=== PATIENT | female | born 1935 | race Caucasian/White ===

== ENCOUNTER → 2016-09-20 | Outpatient (CLI) | payer BC ==
[2016-09-20 14:56] LABS: ALT/SGPT 20 U/L (12-78); AST/SGOT 14 U/L (15-37); BLOOD UREA NITROGEN 18 mg/dl (7-18); BUN/CREATININE RATIO 18.5 (10-20); CALCIUM 9.1 mg/dl (8.5-10.1); CARBON DIOXIDE 26 mmol/L (21-32); CHLORIDE 105 mmol/L (98-107); CREATININE 0.99 mg/dl (0.60-1.20); GLUCOSE 92 mg/dl (70-99); POTASSIUM 3.9 mmol/L (3.5-5.1); SODIUM 141 mmol/L (136-145)
[2016-09-20 14:58] LABS: ALB/GLOB RATIO 0.9 (0.9-2); ALKALINE PHOSPHATASE 93 U/L (45-117)
[2016-09-21 06:56] LABS: ESTIMATED AVERAGE GLUCOSE 126 mg/dl; HA1C FLAG Normal (Normal)
== END | disposition home or self-care (01) ==
LOC: C.LABBC 09:35
PROVIDERS: ATTEND Physician Assistant Medical
DX: I10 Essential (primary) hypertension (principal); R73.03 Prediabetes; M85.80 Other specified disorders of bone density and structure, unspecified site

== ENCOUNTER → 2016-09-25 | Outpatient (CLI) | payer BC ==
--- NOTE | 2016-09-26 13:06 | MAMMOGRAPHY REPORT ---
THIS REPORT HAS BEEN AMENDED. BILATERAL DIGITAL SCREENING MAMMOGRAM WITH CAD: 09/25/2016 CLINICAL HISTORY: Routine screening. Patient has no complaints. TECHNIQUE: Bilateral CC and MLO views were obtained. Current study was also evaluated with a Compute r Aided Detection (CAD) system. COMPARISON: No prior exams were available for comparison. BREAST COMPOSITION: The tissue of both breasts is almost entirely fatty. FINDINGS: There are scattered benign rim calcifications bilaterally. No suspicious mass, architectur al distortion or cluster of suspicious microcalcifications is seen. IMPRESSION: ACR BI-RADS CATEGORY 1: NEGATIVE There is no mammographic evidence of malignancy. Prior outside mammograms are currently being reques prashanth and if obtained they will be reviewed, compared to the current exam to assess for any more subtle changes, and an addendum will be made to this report. Otherwise, a 1 year screening mammogram is re commended. The patient will receive written notification of the results. Approximately 10% of breast cancers are not detected with mammography. A negative mammographic report should not delay biopsy if a clinically suggestive mass is present. Smitha Pennington M.D. ay/:09/26/2016 09:58:26 Hospital Carrier: Angelina SMITH)([place]), [facility] letter sent: Normal 1/2 BI-RADS Code: ACR BI-RADS Category 1: Negative AMENDMENT: 09/29/2016 Smitha Pennington M.D. Prior outside mammograms from [facility] in [place] dated 06/15/2011, 08/31/2012, 12/06/2013 became available for review. There is a vague 3 cm focal asymmetry in the 12:00 anterior/ retroareolar right breast that is increasingly conspicuous compared to the prior outside mammograms. Although this could represent bruising from the patient's reported recent trauma, definitive evaluat ion with spot compression tomosynthesis views and targeted ultrasound are recommended. Amended BI-RADS: ACR BI-RADS Category 0: Incomplete Evaluation: Need Additional Imaging Evaluation letter sent: [facility] 0
== END | disposition home or self-care (01) ==
LOC: C.MAMM 14:54
PROVIDERS: ATTEND Obstetrics & Gynecology
DX: Z12.31 Encounter for screening mammogram for malignant neoplasm of breast (principal)

== ENCOUNTER → 2016-10-06 | Outpatient (CLI) | payer BC ==
--- NOTE | 2016-10-09 07:44 | MAMMOGRAPHY REPORT ---
UNILATERAL RIGHT DIGITAL DIAGNOSTIC MAMMOGRAM TOMOSYNTHESIS AND TARGETED RIGHT ULTRASOUND: 10/06/2016 CLINICAL HISTORY: Callback from screening mammogram for right breast asymmetry. The patient reports she had a recent injury to the right breast a few weeks ago in which a shower door hit her breast. S he had a large area of bruising on the skin of the right breast which is mostly resolved. TECHNIQUE: Breast tomosynthesis in addition to standard 2D mammography was performed. Spot compress ion right CC and MLO 2-D and tomosynthesis images were obtained. COMPARISON: Comparison is made to exams dated: 09/25/2016 mammogram - [facility], mammogram, 08/31/2012 mammogram, and 06/15/2011 mammogram - [facility]. BREAST COMPOSITION: The tissue of the right breast is almost entirely fatty. FINDINGS: Spot compression views demonstrate an ill-defined mottled focal asymmetry in the right [facility] tral/12:00 breast anteriorly. On the tomosynthesis images there are small circumscribed round fat de nsity masses seen within the asymmetry, consistent with oil cysts from fat necrosis. Targeted ultrasound was performed of the area of the asymmetry in the right breast. In the right faiza ast at 1:00, extending from the periareolar region to approximately 9 cm from the nipple, there are n umerous round/oval circumscribed anechoic masses consistent with oil cysts, as well as surrounding il l-defined hyperechoic tissue noted throughout the region. These findings correspond with the mammogr aphic asymmetry and have mammographic and sonographic features of fat necrosis. The findings are cheyanne ign and consistent with fat necrosis related to a recent injury. IMPRESSION: ACR BI-RADS CATEGORY 2: BENIGN, TARGETED ULTRASOUND ACR BI-RADS CATEGORY 2: BENIGN The right breast asymmetry is benign and consistent with fat necrosis related to a recent right breas t injury. There is no mammographic or targeted sonographic evidence of malignancy. A 1 year screenin g mammogram is recommended. The patient has been verbally notified of the results. Approximately 10% of breast cancers are not detected with mammography. A negative mammographic report should not delay biopsy if a clinically suggestive mass is present. Danay Toure M.D. ah/:10/06/2016 13:41:17 Client Portfolio Manager: Barbie YAN(R)(M), [facility] letter sent: Normal 1/2 BI-RADS Code: ACR BI-RADS Category 2: Benign Ultrasound BI-RADS: ACR BI-RADS Category 2: Benign
== END | disposition home or self-care (01) ==
LOC: C.MAMM 13:04
PROVIDERS: ATTEND Obstetrics & Gynecology
DX: N64.9 Disorder of breast, unspecified (principal)

== ENCOUNTER → 2016-12-02 | Outpatient (CLI) | payer BC ==
--- NOTE | 2016-12-02 09:32 | DIAGNOSTIC IMAGING REPORT ---
L ANKLE MIN 3 VIEWS ROUTINE, L KNEE 3 VIEWS CLINICAL HISTORY: PAIN AND SWELLING OF ANKLE and left knee. COMPARISON STUDY: None. FINDINGS: No fracture or dislocation. Faint chondrocalcinosis within the left knee. No significant knee effusion. Chronic calcifications at the distal insertion of the Achilles tendon. Mild soft tissue swelling within the left ankle. IMPRESSION: Mild soft tissue swelling within the left ankle. No fractures within the left ankle or left knee. Electronically signed by: Julio Cesar Shukla M.D. 12/02/2016 9:30 AM Dictated Date/Time: 12/02/2016 9:27 AM
== END | disposition home or self-care (01) ==
LOC: C.RADBC 08:46
PROVIDERS: ATTEND Internal Medicine
DX: M25.572 Pain in left ankle and joints of left foot (principal); M25.472 Effusion, left ankle; M25.562 Pain in left knee

== ENCOUNTER → 2017-04-03 | Outpatient (CLI) | payer BC ==
[2017-04-03 15:29] LABS: ALT/SGPT 23 U/L (12-78); AST/SGOT 14 U/L (15-37); BLOOD UREA NITROGEN 24 mg/dl (7-18); CALCIUM 9.2 mg/dl (8.5-10.1); CARBON DIOXIDE 26 mmol/L (21-32); CREATININE 1.08 mg/dl (0.60-1.20); GLUCOSE 101 mg/dl (70-99); POTASSIUM 3.8 mmol/L (3.5-5.1); SODIUM 138 mmol/L (136-145)
[2017-04-03 15:31] LABS: CHOLESTEROL 173 mg/dl (0-200); LDL CHOLESTEROL CALCULATED 84 mg/dl
[2017-04-04 06:45] LABS: HEMOGLOBIN A1C 5.9 % (4.5-5.6)
== END | disposition home or self-care (01) ==
LOC: C.LABBC 09:18
PROVIDERS: ATTEND Internal Medicine
DX: R73.03 Prediabetes (principal); E78.5 Hyperlipidemia, unspecified; M85.80 Other specified disorders of bone density and structure, unspecified site

== ENCOUNTER 2021-10-16 11:24 | Inpatient (IN) ==
[2021-10-16] MEDS ORDERED: dilTIAZem HCl 5 MG/ML 5 ML VIAL IV ONE (11:32)
[2021-10-16] MEDS ORDERED: dilTIAZem HCl 5 MG/ML 5 ML VIAL IV STA ×2 (11:34→13:16)
[2021-10-16] MEDS ORDERED: STAT IV Infusion **Titration per Protocol STA ×2 (11:34→15:43)
[2021-10-16] MEDS ORDERED: SODIUM CHLORIDE 0.9% 1000ML 1,000 ML IV ONE (11:36)
[2021-10-16 11:43] LABS: Basophils # (auto) 0.02 K/uL (0-0.2); Basophils % (auto) 0.1 %; Hematocrit (blood only) 32.9 % (34.1-44.9); Hemoglobin 10.9 g/dl (12.0-16.0); Immature Granulocytes # (auto) 0.09 K/uL (0.00-0.02); Immature Granulocytes % (auto) 0.6 %; Lymphocytes # (auto) 1.36 K/uL (1.2-3.4); Lymphocytes % (auto) 9.1 %; Mean Corpuscular Hemoglobin 31.7 pg (25.0-34.0); Mean Corpuscular Hgb Conc 33.1 g/dL (32.0-36.0); Mean Corpuscular Volume 95.6 fL (80.0-100.0); Mean Platelet Volume 9.7 fL (9.4-12.3); Monocytes # (auto) 1.31 K/uL (0.24-0.82); Monocytes % (auto) 8.8 %; Neutrophils # (auto) 12.09 K/uL (1.4-6.5); Neutrophils % (auto) 81.4 %; Platelet Count 281 K/uL (130-400); RDW Coefficient of Variation 14.4 % (11.5-14.5); RDW Standard Deviation 50.4 fL (36.4-46.3); Red Blood Count 3.44 M/uL (3.93-5.22); White Blood Count 14.87 K/ul (4.8-10.8)
[2021-10-16] MEDS ORDERED: dilTIAZem HCL 125 MG in DEXTROSE 5% 100 ML IV SCH (11:45)
--- NOTE | 2021-10-16 11:57 | Emergency Department Note ---
Impression & Plan Atrial fibrillation with RVR, Increased anion gap metabolic acidosis, Elevated troponin, New onset atrial fibrillation, Acute on chronic renal insufficiency, SIRS (systemic inflammatory response syndrome) ED Provider Note NAME: HOANG BENJAMIN AGE: 86 SEX: F ARRIVES VIA: Ambulance INFORMANT: Patient, EMS ED PROVIDER(S): Avelino Anderson MD CHIEF COMPLAINT: weak, n/v/d, afib rvr PLAN: Disposition: Admit MEDICAL DECISION MAKING: The patient is a pleasant 86-year-old woman with a past medical history of hypertension who presents to the emergency department via EMS for worsening nausea, vomiting, diarrhea over the past several days with associated lightheadedness and weakness as well as mild cough and congestion found to be in A. fib in the 200s upon EMS arrival. Blood pressure was as low as 80s/40s. Her O2 saturation was in the low 80s on room air improving to low mid 90s on nasal cannula. She reports she has had several rapid negative COVID test at her assisted living facility but had a send out performed yesterday that will not be back until tomorrow. She reports there has been individuals with COVID-19. She is vaccinated for COVID-19 including her booster. She denies feeling her heart racing despite her RVR in the 200s. She had been given 1 L of normal saline by EMS without improvement in her rate. She had been given adenosine and did slow down to the 80s temporarily but then resumed in RVR. She subsequent was given 10 mg of IV of diltiazem with some improvement to the 170s-180s, upon discussion with this provider on medical command. On arrival the patient is fatigued appearing but in no distress, afebrile with heart rate in the 180s-200s and blood pressure 100-130s/80s. She was given additional 500 normal saline bolus and 15 mg of IV diltiazem. Her heart rate then gradually improved to the 130s-140s and RVR and then abruptly cardioverted at 1142. Initial EKG demonstrated atrial fibrillation with RVR with nonspecific ST and T wave abnormality without overt ST elevation. Repeat EKG with sinus rhythm with PACs without overt ST elevation or depression. Chest x-ray with evidence of mild vascular congestion in the setting of the patient's atrial fibrillation with RVR in the 200s for unclear duration (given the patient did not feel her heart racing). WBC 14.8K with neutrophil predominance with mild left shift. H/H 10.9/32.9 down from 11.1/39.3 in June without more recent values for comparison. Platelets 28K1 down from 455K in June. Chemistry does demonstrate anion gap metabolic acidosis with anion gap of 18 and bicarbonate of 15. Creatinine 2.8 newly elevated consistent with acute renal insufficiency. BUN/creatinine> 20 suggestive of prerenal etiology. Initial lactic acid 2.6, improved to 1.9 following IV fluid hydration. LFTs appear newly elevated with AST and ALT 112 and 122, respectively. Total bilirubin 0.6, within normal limits. Alk phos within normal limits. High-sensitivity troponin 100, nonspecific and likely related to the patient's prolonged RVR. Lipase is not elevated. Procalcitonin is 1.3. TSH within normal limits. Patient's respiratory viral panel/bio fire was negative including negative COVID-[address] of the abdomen pelvis was performed and demonstrates nonspecific gallbladder wall thickening with pericholecystic fluid however the patient has no tenderness in this area. Moreover her bilirubin is not elevated and no gallstones were seen by CT and thus cholecystitis considered to be less likely. Note is made of nonspecific bilateral perinephric inflammation with bladder wall thickening and perivesicular stranding. UA is pending. Lung bases demonstrate bibasilar consolidation which may be due to atelectasis however given the patient's report of respiratory symptoms pneumonia is considered and so treatment was initiated for CAP at this time with ceftriaxone and doxycycline. Additionally, given the patient's newly elevated LFTs and rela tive decrease in platelets from prior doxycycline may also cover Anaplasma if present. Smear and DNA testing is pending. Unfortunately, the patient did have a recurrence of her atrial fibrillation with RVR to the 200s. She was given a second dose of 15 mg of IV diltiazem with improved rate control to the 120-130s and drip was initiated. Patient and her son at the bedside agree with plan for admission. Case was discussed with Dr. Harvey, [facility] hospitalist, who will evaluate the patient for admission. We agreed to initiate heparin given paroxysmal atrial fibrillation and [id number] 4. Triage Nursing notes reviewed and agree them. Prior medical records reviewed Vital Signs: reviewed and remarkable for tachycardia, hypotension, hypoxia. Differential diagnosis: Gastroenteritis, food borne illness, infections, appendicitis, diverticulitis, inflammatory bowel disease, obstruction, GI bleed, biliary pathology, volvulus, as well as other pathologies. ER treatment provided: See below. Diagnostics interpreted by me: ECG 1130: Atrial fibrillation w/RVR, 191 bpm, no ectopy, nonspecific ST and T wave abnormality, no overt ST elevation or depression, QTC 342, QRS 58. ECG 1147: Sinus rhythm with PACs, 97 bpm, no overt ST elevation or depression, QTC 474, QRS 62. Cardiac Monitoring: An order for continuous cardiac monitoring was placed and demonstrated atrial fibrillation with RVR 180-200s cardioverting to Sinus rhythm with PACs, 97 bpm at 1142. Laboratory studies: See below Imaging studies: See below Consultation(s): Case was discussed with Dr. Harvey, [facility] hospitalist, who will evaluate the patient for admission. HPI: The patient is a pleasant 86-year-old woman with a past medical history of hypertension who presents to the emergency department via EMS for worsening naus ea, vomiting, diarrhea over the past several days with associated lightheadedness and weakness as well as mild cough and congestion found to be in A. fib in the 200s upon EMS arrival. Blood pressure was as low as 80s/40s. Her O2 saturation was in the low 80s on room air improving to low mid 90s on nasal cannula. She reports she has had several rapid negative COVID test at her assisted living facility but had a send out performed yesterday that will not be back until tomorrow. She reports there has been individuals with COVID-19. She is vaccinated for COVID-19 including her booster. She denies feeling her heart racing despite her RVR in the 200s. She had been given 1 L of normal saline by EMS without improvement in her rate. She had been given adenosine and did slow down to the 80s temporarily but then resumed in RVR. She subsequent was given 10 mg of IV of diltiazem with some improvement to the 170s-180s, upon discussion with this provider on medical command. ROS: See above HPI for pertinent positives & negatives. A total of 10 systems reviewed and were otherwise negative. VITALS:See Below PHYSICAL EXAMINATION: GENERAL: Awake, alert, fatigued-appearing, in no distress HENT: Normocephalic, atraumatic. Oropharynx with dry mucous membranes and otherwise unremarkable. EYES: Normal conjunctiva. Sclera non-icteric. NECK: Supple. No nuchal rigidity. FROM. No JVD. RESPIRATORY: Clear to auscultation. CARDIAC: Tachycardic rate, irregular rhythm. Extremities warm and well perfused. Pulses equal. ABDOMEN: Soft, non-distended. No tenderness to palpation. No rebound or guarding. No masses. RECTAL: Deferred. MUSCULOSKELETAL: Chest examination reveals no tenderness. The back is symmetrical on inspection without obvious abnormality. There is no CVA tenderness to palpation. No joint edema. LOWER EXTREMITIES: Calves are equal size bilaterally and non-tender. No edema. No discoloration. NEURO: Normal sensorium. No sensory or motor deficits noted. SKIN: No rash or jaundice noted. ED COURSE: Critical Care: I have personally spent greater than 95 minutes of critical care time in the direct management of this patient. This includes bedside care, interpretation of diagnostic studies, and testing, discussion with consultants, patient, and family members, and other required patient management activities. This 95 minutes is in excess of all separately billable procedures. Avelino Anderson MD Past Med/Surg History Medical History Diverticulosis Dyslipidemia Esophageal reflux History of cardiac murmur Hx of migraines OCCULAR MIGRAINES Hypertension Osteopenia Prediabetes SNHL (sensorineural hearing loss) Spinal stenosis, lumbar Surgical History H/O oophorectomy H/O sinus surgery H/O tooth extraction History of anesthesia reaction HAS WOKEN UP IN MIDDLE OF COLONOSCOPIES History of cataract surgery LEFT History of colonoscopy History of esophagogastroduodenoscopy (EGD) History of hysterectomy History of tonsillectomy and adenoidectomy Family History Brother Colon cancer Cancer of unknown origin Sister Pancreatic cancer Pancreatic carcinoma Mother Diabetes Cardiac disorder Myocardial infarction Hypertension Father Hypertension Stroke Other No family history of adverse response to anesthesia Denies family history of Ovarian cancer Prostate cancer Breast cancer Social History Smoking Status: Never smoker Second Hand Exposure: No; Do You Dip or Chew Tobacco: No; Tobacco Cessation Education Requested by Patient: No Hx Alcohol Use: No Hx Substance Use: No Preferred Language: Kinyarwanda Communication Ability: Effective Visual Impairment: No Limitations Hearing Ability: Normal National Accounts Sales Required: No Beliefs That Will Affect Care: None marital status: / Current Living Situation: Alone Current Living Situation Comment: [facility] current occupational status: retired Other Information That Helps Us Care for You: No Feels Safe at Home: Yes Safety Concerns: Feels Safe At This Time Childhood Exposure to Second-Hand Smoke: No Dental Care, Regularly: Yes Physical Activity Frequency: 3-4 Times per Week Seatbelt Use: always Sunscreen Use: No Assistive Devices: Cane and Glasses Allergies Allergies Allergy/AdvReac Type Severity Reaction Status Date / Time No Known Allergies Allergy Verified 10/16/21 15:36 Home Meds Home Medications Medication Instructions Recorded Confirmed cholecalciferol (vitamin D3) 50 2,000 units PO QAM 10/13/18 10/16/21 mcg (2,000 unit) capsule omeprazole magnesium 20 mg 20 mg PO Q OTHER DAY 07/29/21 10/16/21 tablet,delayed release calcium carbonate 500 mg calcium 500 mg PO DAILY 10/16/21 10/16/21 (1,250 mg) tablet estradiol 0.025 mg/24 hr weekly 1 patch transdermal WK 10/16/21 10/16/21 transdermal patch (Climara) omega-3 fatty acids 1,000 mg 1,000 mg PO DAILY 10/16/21 10/16/21 capsule Previous Rx's Medication Instructions Recorded hydrochlorothiazide 12.5 mg capsule 12.5 mg PO DAILY #90 caps 01/10/21 lisinopril 5 mg tablet 5 mg PO DAILY #90 tabs 01/10/21 simvastatin 20 mg tablet 20 mg PO DAILY #90 tabs 03/16/21 Results & Data (ED) Vital Signs Vital Signs - 24 hr 10/16/21 11:15 10/16/21 11:45 10/16/21 11:45 Temperature 37 C Temperature Source Oral Pulse Rate 204 H Pulse Rate [Apical] Pulse Rate from SpO2 Sensor Pulse Rhythm Irregular Pulse Rhythm [Apical] Pulse Strength [Apical] Respiratory Rate 20 Respiratory Effort / Characteristics Non-Labored Spontaneous Respiratory Depth Normal Respiratory Pattern Regular Blood Pressure 107/83 Blood Pressure [Right Arm] Blood Pressure Mean 91 Blood Pressure Mean [Right Arm] Blood Pressure Position Semi-fowlers Blood Pressure Position [Right Arm] Pulse Oximetry 93 96 96 Oxygen Delivery Method Room Air Room Air Room Air Oxygen Flow Rate 0 Sepsis Recent Fever Within 48 Hours No Sepsis New/Unexplained Change in Mental Status No Sepsis Action Taken by Nursing No Action Required 10/16/21 11:58 10/16/21 11:31 10/16/21 12:00 Temperature Temperature Source Pulse Rate 100 H 211 H 96 H Pulse Rate [Apical] Pulse Rate from SpO2 Sensor Pulse Rhythm Pulse Rhythm [Apical] Pulse Strength [Apical] Respiratory Rate 25 H 24 26 H Respiratory Effort / Characteristics Respiratory Depth Respiratory Pattern Blood Pressure 107/83 107/83 120/104 H Blood Pressure [Right Arm] Blood Pressure Mean 91 91 109 Blood Pressure Mean [Right Arm] Blood Pressure Position Blood Pressure Position [Right Arm] Pulse Oximetry 94 93 95 Oxygen Delivery Method Room Air Room Air Oxygen Flow Rate Sepsis Recent Fever Within 48 Hours Sepsis New/Unexplained Change in Mental Status Sepsis Action Taken by Nursing 10/16/21 13:25 10/16/21 13:33 10/16/21 13:45 Temperature Temperature Source Pulse Rate 128 H Pulse Rate [Apical] 214 H 114 H Pulse Rate from SpO2 Sensor Pulse Rhythm Pulse Rhythm [Apical] Irregular Irregular Pulse Strength [Apical] Normal Normal Respiratory Rate 18 16 32 H Respiratory Effort / Characteristics Spontaneous Non-Labored Spontaneous Respiratory Depth Normal Normal Respiratory Pattern Regular Regular Blood Pressure 101/77 Blood Pressure [Right Arm] 80/62 L 110/70 Blood Pressure Mean 85 Blood Pressure Mean [Right Arm] 68 83 Blood Pressure Position Blood Pressure Position [Right Arm] Semi-fowlers Semi-fowlers Pulse Oximetry 88 L 93 97 Oxygen Delivery Method Room Air Nasal Cannula Oxygen Flow Rate 2 Sepsis Recent Fever Within 48 Hours Sepsis New/Unexplained Change in Mental Status Sepsis Action Taken by Nursing 10/16/21 14:01 10/16/21 14:15 10/16/21 14:17 Temperature Temperature Source Pulse Rate 122 H 119 H Pulse Rate [Apical] Pulse Rate from SpO2 Sensor 106 H Pulse Rhythm Pulse Rhythm [Apical] Pulse Strength [Apical] Respiratory Rate 24 29 H Respiratory Effort / Characteristics Respiratory Depth Respiratory Pattern Blood Pressure 107/74 111/76 Blood Pressure [Right Arm] Blood Pressure Mean 85 87 Blood Pressure Mean [Right Arm] Blood Pressure Position Blood Pressure Position [Right Arm] Pulse Oximetry 92 70 L Oxygen Delivery Method Oxygen Flow Rate Sepsis Recent Fever Within 48 Hours Sepsis New/Unexplained Change in Mental Status Sepsis Action Taken by Nursing 10/16/21 14:17 10/16/21 14:32 10/16/21 14:41 Temperature Temperature Source Pulse Rate 123 H 146 H Pulse Rate [Apical] Pulse Rate from SpO2 Sensor 104 H 110 H Pulse Rhythm Pulse Rhythm [Apical] Pulse Strength [Apical] Respiratory Rate 33 H 31 H Respiratory Effort / Characteristics Respiratory Depth Respiratory Pattern Blood Pressure 114/81 Blood Pressure [Right Arm] Blood Pressure Mean 92 Blood Pressure Mean [Right Arm] Blood Pressure Position Blood Pressure Position [Right Arm] Pulse Oximetry 95 91 Oxygen Delivery Method Oxygen Flow Rate Sepsis Recent Fever Within 48 Hours Sepsis New/Unexplained Change in Mental Status Sepsis Action Taken by Nursing 10/16/21 14:41 10/16/21 14:45 10/16/21 14:54 Temperature Temperature Source Pulse Rate 143 H 143 H Pulse Rate [Apical] Pulse Rate from SpO2 Sensor 105 H 99 H Pulse Rhythm Pulse Rhythm [Apical] Pulse Strength [Apical] Respiratory Rate 33 H 29 H Respiratory Effort / Characteristics Respiratory Depth Respiratory Pattern Blood Pressure 125/67 Blood Pressure [Right Arm] Blood Pressure Mean 86 Blood Pressure Mean [Right Arm] Blood Pressure Position Blood Pressure Position [Right Arm] Pulse Oximetry 96 98 Oxygen Delivery Method Oxygen Flow Rate Sepsis Recent Fever Within 48 Hours Sepsis New/Unexplained Change in Mental Status Sepsis Action Taken by Nursing 10/16/21 14:54 10/16/21 15:00 10/16/21 15:01 Temperature Temperature Source Pulse Rate 148 H 139 H Pulse Rate [Apical] Pulse Rate from SpO2 Sensor 91 H Pulse Rhythm Pulse Rhythm [Apical] Pulse Strength [Apical] Respiratory Rate 33 H 27 H Respiratory Effort / Characteristics Respiratory Depth Respiratory Pattern Blood Pressure 124/81 Blood Pressure [Right Arm] Blood Pressure Mean 95 Blood Pressure Mean [Right Arm] Blood Pressure Position Blood Pressure Position [Right Arm] Pulse Oximetry 97 86 L Oxygen Delivery Method Oxygen Flow Rate Sepsis Recent Fever Within 48 Hours Sepsis New/Unexplained Change in Mental Status Sepsis Action Taken by Nursing 10/16/21 15:01 Temperature Temperature Source Pulse Rate 128 H Pulse Rate [Apical] Pulse Rate from SpO2 Sensor Pulse Rhythm Pulse Rhythm [Apical] Pulse Strength [Apical] Respiratory Rate 30 H Respiratory Effort / Characteristics Respiratory Depth Respiratory Pattern Blood Pressure Blood Pressure [Right Arm] Blood Pressure Mean Blood Pressure Mean [Right Arm] Blood Pressure Position Blood Pressure Position [Right Arm] Pulse Oximetry 86 L Oxygen Delivery Method Oxygen Flow Rate Sepsis Recent Fever Within 48 Hours Sepsis New/Unexplained Change in Mental Status Sepsis Action Taken by Nursing Laboratory Data Attestation: I reviewed the patient's lab results. Result diagrams: 10/16/21 11:33 10/16/21 11:33 Lab Results 10/16/21 10/16/21 10/16/21 Range/Units 11:33 11:33 11:33 WBC 14.87 H (4.8-10.8) K/ul RBC 3.44 L (3.93-5.22) M/uL Hgb 10.9 L (12.0-16.0) g/dl Hct 32.9 L (34.1-44.9) % MCV 95.6 (80.0-100.0) fL MCH 31.7 (25.0-34.0) pg MCHC 33.1 (32.0-36.0) g/dL RDW Std Deviation 50.4 H (36.4-46.3) fL RDW Coeff of Akiko 14.4 (11.5-14.5) % Plt Count 281 (130-400) K/uL MPV 9.7 (9.4-12.3) fL Immature Gran % (Auto) 0.6 % Neut % (Auto) 81.4 % Lymph % (Auto) 9.1 % [place] % (Auto) 8.8 % Eos % (Auto) 0.0 % Baso % (Auto) 0.1 % Neut # (Auto) 12.09 H (1.4-6.5) K/uL Lymph # (Auto) 1.36 (1.2-3.4) K/uL Huntington # (Auto) 1.31 H (0.24-0.82) K/uL Eos # (Auto) 0.00 (0-0.50) K/uL Baso # (Auto) 0.02 (0-0.2) K/uL Immature Gran # (Auto) 0.09 H (0.00-0.02) K/uL PT (9.0-12.0) Seconds INR (0.9-1.1) APTT (21.0-31.0) Seconds PTT Ratio Sodium 137 (136-145) mmol/L Potassium 4.3 (3.5-5.1) mmol/L Chloride 104 (98-107) mmol/L Carbon Dioxide 15 L (21-32) mmol/L Anion Gap 18 H (3-11) BUN 62 H (6-23) mg/dl Creatinine 2.87 H (0.6-1.2) mg/dl Est Cr Clr Drug Dosing Not Reportable Est GFR ( Amer) 16.3 ml/min Est GFR (Non-Af Amer) 14.0 ml/min BUN/Creatinine Ratio 21.6 H (10-20) Glucose 132 H (70-99(Fasting)) mg/dl Lactate (0.4-2.0) mmol/L Calcium 7.7 L (8.5-10.1) mg/dl Phosphorus 6.3 H (2.5-4.9) mg/dl Magnesium 2.0 (1.7-2.4) mg/dl Total Bilirubin 0.6 (0.2-1.0) mg/dl AST 112 H (13-39) U/L ALT 122 H (7-52) U/L Alkaline Phosphatase 76 (34-104) U/L Troponin I High Sens 104.0 H* (0-14) pg/ml Total Protein 6.4 (6.0-8.3) gm/dl Albumin 3.3 L (3.4-5.0) gm/dl Globulin 3.1 (2.5-4.0) gm/dl Albumin/Globulin Ratio 1.1 (0.9-2) Lipase 15 (11-82) U/L Procalcitonin (0-0.5) ng/ml TSH 2.230 (0.300-4.500) uIu/ml Adenovirus (PCR) (NotDetected) Anaplasma Smear Babesia Smear B. pertussis DNA (PCR) (NotDetected) B.parapertussis DNA PCR (NotDetected) Lyme Disease IgG Ab (Negative) Lyme Disease IgM Ab (Negative) C. pneumoniae DNA (PCR) (NotDetected) Coronavirus OC43 (PCR) (NotDetected) Coronavirus HKU1 (PCR) (NotDetected) Coronavirus 229E (PCR) (NotDetected) SARS-CoV-2 (PCR) (NotDetected) Coronavirus NL63 (PCR) (NotDetected) Human Metapneumovir PCR (NotDetected) Influenza Type A (PCR) (NotDetected) Influenza Type B (PCR) (NotDetected) M. pneumoniae (PCR) (NotDetected) Parainfluenza 1 (PCR) (NotDetected) Parainfluenza 2 (PCR) (NotDetected) Parainfluenza 3 (PCR) (NotDetected) Parainfluenza 4 (PCR) (NotDetected) RSV (PCR) (NotDetected) Entero/Rhino (PCR) (NotDetected) 10/16/21 10/16/21 10/16/21 Range/Units 11:33 11:33 11:38 WBC (4.8-10.8) K/ul RBC (3.93-5.22) M/uL Hgb (12.0-16.0) g/dl Hct (34.1-44.9) % MCV (80.0-100.0) fL MCH (25.0-34.0) pg MCHC (32.0-36.0) g/dL RDW Std Deviation (36.4-46.3) fL RDW Coeff of Akiko (11.5-14.5) % Plt Count (130-400) K/uL MPV (9.4-12.3) fL Immature Gran % (Auto) % Neut % (Auto) % Lymph % (Auto) % [place] % (Auto) % Eos % (Auto) % Baso % (Auto) % Neut # (Auto) (1.4-6.5) K/uL Lymph # (Auto) (1.2-3.4) K/uL [place] # (Auto) (0.24-0.82) K/uL Eos # (Auto) (0-0.50) K/uL Baso # (Auto) (0-0.2) K/uL Immature Gran # (Auto) (0.00-0.02) K/uL PT 11.8 (9.0-12.0) Seconds INR 1.1 (0.9-1.1) APTT 24.3 (21.0-31.0) Seconds PTT Ratio 0.9 Sodium (136-145) mmol/L Potassium (3.5-5.1) mmol/L Chloride (98-107) mmol/L Carbon Dioxide (21-32) mmol/L Anion Gap (3-11) BUN (6-23) mg/dl Creatinine (0.6-1.2) mg/dl Est Cr Clr Drug Dosing Est GFR ( Amer) ml/min Est GFR (Non-Af Amer) ml/min BUN/Creatinine Ratio (10-20) Glucose (70-99(Fasting)) mg/dl Lactate (0.4-2.0) mmol/L Calcium (8.5-10.1) mg/dl Phosphorus (2.5-4.9) mg/dl Magnesium (1.7-2.4) mg/dl Total Bilirubin (0.2-1.0) mg/dl AST (13-39) U/L ALT (7-52) U/L Alkaline Phosphatase (34-104) U/L Troponin I High Sens (0-14) pg/ml Total Protein (6.0-8.3) gm/dl Albumin (3.4-5.0) gm/dl Globulin (2.5-4.0) gm/dl Albumin/Globulin Ratio (0.9-2) Lipase (11-82) U/L Procalcitonin (0-0.5) ng/ml TSH (0.300-4.500) uIu/ml Adenovirus (PCR) Not Detected (NotDetected) Anaplasma Smear See Comment Babesia Smear See Comment B. pertussis DNA (PCR) Not Detected (NotDetected) B.parapertussis DNA PCR Not Detected (NotDetected) Lyme Disease IgG Ab (Negative) Lyme Disease IgM Ab (Negative) C. pneumoniae DNA (PCR) Not Detected (NotDetected) Coronavirus OC43 (PCR) Not Detected (NotDetected) Coronavirus HKU1 (PCR) Not Detected (NotDetected) Coronavirus 229E (PCR) Not Detected (NotDetected) SARS-CoV-2 (PCR) Not Detected (NotDetected) Coronavirus NL63 (PCR) Not Detected (NotDetected) Human Metapneumovir PCR Not Detected (NotDetected) Influenza Type A (PCR) Not Detected (NotDetected) Influenza Type B (PCR) Not Detected (NotDetected) M. pneumoniae (PCR) Not Detected (NotDetected) Parainfluenza 1 (PCR) Not Detected (NotDetected) Parainfluenza 2 (PCR) Not Detected (NotDetected) Parainfluenza 3 (PCR) Not Detected (NotDetected) Parainfluenza 4 (PCR) Not Detected (NotDetected) RSV (PCR) Not Detected (NotDetected) Entero/Rhino (PCR) Not Detected (NotDetected) 10/16/21 10/16/21 10/16/21 Range/Units 12:52 12:52 12:52 WBC (4.8-10.8) K/ul RBC (3.93-5.22) M/uL Hgb (12.0-16.0) g/dl Hct (34.1-44.9) % MCV (80.0-100.0) fL MCH (25.0-34.0) pg MCHC (32.0-36.0) g/dL RDW Std Deviation (36.4-46.3) fL RDW Coeff of Akiko (11.5-14.5) % Plt Count (130-400) K/uL MPV (9.4-12.3) fL Immature Gran % (Auto) % Neut % (Auto) % Lymph % (Auto) % [place] % (Auto) % Eos % (Auto) % Baso % (Auto) % Neut # (Auto) (1.4-6.5) K/uL Lymph # (Auto) (1.2-3.4) K/uL [place] # (Auto) (0.24-0.82) K/uL Eos # (Auto) (0-0.50) K/uL Baso # (Auto) (0-0.2) K/uL Immature Gran # (Auto) (0.00-0.02) K/uL PT (9.0-12.0) Seconds INR (0.9-1.1) APTT (21.0-31.0) Seconds PTT Ratio Sodium (136-145) mmol/L Potassium (3.5-5.1) mmol/L Chloride (98-107) mmol/L Carbon Dioxide (21-32) mmol/L Anion Gap (3-11) BUN (6-23) mg/dl Creatinine (0.6-1.2) mg/dl Est Cr Clr Drug Dosing Est GFR ( Amer) ml/min Est GFR (Non-Af Amer) ml/min BUN/Creatinine Ratio (10-20) Glucose (70-99(Fasting)) mg/dl Lactate 2.6 H* (0.4-2.0) mmol/L Calcium (8.5-10.1) mg/dl Phosphorus (2.5-4.9) mg/dl Magnesium (1.7-2.4) mg/dl Total Bilirubin (0.2-1.0) mg/dl AST (13-39) U/L ALT (7-52) U/L Alkaline Phosphatase (34-104) U/L Troponin I High Sens (0-14) pg/ml Total Protein (6.0-8.3) gm/dl Albumin (3.4-5.0) gm/dl Globulin (2.5-4.0) gm/dl Albumin/Globulin Ratio (0.9-2) Lipase (11-82) U/L Procalcitonin 1.36 H (0-0.5) ng/ml TSH (0.300-4.500) uIu/ml Adenovirus (PCR) (NotDetected) Anaplasma Smear Babesia Smear B. pertussis DNA (PCR) (NotDetected) B.parapertussis DNA PCR (NotDetected) Lyme Disease IgG Ab Negative Cancelled (Negative) Lyme Disease IgM Ab Negative Cancelled (Negative) C. pneumoniae DNA (PCR) (NotDetected) Coronavirus OC43 (PCR) (NotDetected) Coronavirus HKU1 (PCR) (NotDetected) Coronavirus 229E (PCR) (NotDetected) SARS-CoV-2 (PCR) (NotDetected) Coronavirus NL63 (PCR) (NotDetected) Human Metapneumovir PCR (NotDetected) Influenza Type A (PCR) (NotDetected) Influenza Type B (PCR) (NotDetected) M. pneumoniae (PCR) (NotDetected) Parainfluenza 1 (PCR) (NotDetected) Parainfluenza 2 (PCR) (NotDetected) Parainfluenza 3 (PCR) (NotDetected) Parainfluenza 4 (PCR) (NotDetected) RSV (PCR) (NotDetected) Entero/Rhino (PCR) (NotDetected) 10/16/21 Range/Units 14:47 WBC (4.8-10.8) K/ul RBC (3.93-5.22) M/uL Hgb (12.0-16.0) g/dl Hct (34.1-44.9) % MCV (80.0-100.0) fL MCH (25.0-34.0) pg MCHC (32.0-36.0) g/dL RDW Std Deviation (36.4-46.3) fL RDW Coeff of Akiko (11.5-14.5) % Plt Count (130-400) K/uL MPV (9.4-12.3) fL Immature Gran % (Auto) % Neut % (Auto) % Lymph % (Auto) % [place] % (Auto) % Eos % (Auto) % Baso % (Auto) % Neut # (Auto) (1.4-6.5) K/uL Lymph # (Auto) (1.2-3.4) K/uL [place] # (Auto) (0.24-0.82) K/uL Eos # (Auto) (0-0.50) K/uL Baso # (Auto) (0-0.2) K/uL Immature Gran # (Auto) (0.00-0.02) K/uL PT (9.0-12.0) Seconds INR (0.9-1.1) APTT (21.0-31.0) Seconds PTT Ratio Sodium (136-145) mmol/L Potassium (3.5-5.1) mmol/L Chloride (98-107) mmol/L Carbon Dioxide (21-32) mmol/L Anion Gap (3-11) BUN (6-23) mg/dl Creatinine (0.6-1.2) mg/dl Est Cr Clr Drug Dosing Est GFR ( Amer) ml/min Est GFR (Non-Af Amer) ml/min BUN/Creatinine Ratio (10-20) Glucose (70-99(Fasting)) mg/dl Lactate 1.9 (0.4-2.0) mmol/L Calcium (8.5-10.1) mg/dl Phosphorus (2.5-4.9) mg/dl Magnesium (1.7-2.4) mg/dl Total Bilirubin (0.2-1.0) mg/dl AST (13-39) U/L ALT (7-52) U/L Alkaline Phosphatase (34-104) U/L Troponin I High Sens (0-14) pg/ml Total Protein (6.0-8.3) gm/dl Albumin (3.4-5.0) gm/dl Globulin (2.5-4.0) gm/dl Albumin/Globulin Ratio (0.9-2) Lipase (11-82) U/L Procalcitonin (0-0.5) ng/ml TSH (0.300-4.500) uIu/ml Adenovirus (PCR) (NotDetected) Anaplasma Smear Babesia Smear B. pertussis DNA (PCR) (NotDetected) B.parapertussis DNA PCR (NotDetected) Lyme Disease IgG Ab (Negative) Lyme Disease IgM Ab (Negative) C. pneumoniae DNA (PCR) (NotDetected) Coronavirus OC43 (PCR) (NotDetected) Coronavirus HKU1 (PCR) (NotDetected) Coronavirus 229E (PCR) (NotDetected) SARS-CoV-2 (PCR) (NotDetected) Coronavirus NL63 (PCR) (NotDetected) Human Metapneumovir PCR (NotDetected) Influenza Type A (PCR) (NotDetected) Influenza Type B (PCR) (NotDetected) M. pneumoniae (PCR) (NotDetected) Parainfluenza 1 (PCR) (NotDetected) Parainfluenza 2 (PCR) (NotDetected) Parainfluenza 3 (PCR) (NotDetected) Parainfluenza 4 (PCR) (NotDetected) RSV (PCR) (NotDetected) Entero/Rhino (PCR) (NotDetected) Administered Medications Lactated Ringer's (Lr) 1,000 mls @ 80 mls/hr IV .[id number] ANNIE Stop: 11/15/21 13:29 Last Admin: 10/16/21 17:24 Dose: 125 mls/hr Documented By: SER Heparin Sodium/Dextrose (Heparin Sodium/Dextrose) 25,000 units in 500 mls @ 24 mls/hr IV .[id number] [facility]; Protocol Stop: 11/15/21 15:14 Last Admin: 10/16/21 16:28 Dose: 1,200 units/hr, 24 mls/hr Documented By: SER Co-signed By: AM Ampicillin Sodium/Sulbactam Sodium 3,000 mg/ Sodium Chloride 108 mls @ 200 mls/hr IV Q12H [facility]; Protocol Stop: 10/26/21 17:44 Last Infusion: 10/16/21 21:14 Dose: 0 mls/hr Documented By: Admin: 10/16/21 18:12 Dose: 200 mls/hr Documented By: SER Insulin Aspart (Insulin Aspart Per Unit) 0 units SC ACHS [facility] Stop: 11/15/21 20:59 Last Admin: 10/16/21 21:30 Dose: Not Given Documented By: ANTOINE Metoprolol Tartrate (Metoprolol Tartrate 25 Mg Tab) 25 mg PO BID [facility] Stop: 11/15/21 20:59 Last Admin: 10/16/21 21:31 Dose: 25 mg Documented By: ANTOINE Discontinued Medications Diltiazem HCl (Diltiazem Hcl 5 Mg/Ml 5 Ml Vial) Confirm Administered Dose 25 mg IV .STK-MED ONE Stop: 10/16/21 11:33 Last Admin: 10/16/21 11:36 Dose: Not Given Documented By: OAM Diltiazem HCl (Diltiazem Hcl 5 Mg/Ml 5 Ml Vial) 15 mg IV NOW STA Stop: 10/16/21 11:35 Last Admin: 10/16/21 11:36 Dose: 15 mg Documented By: OAGuero Co-signed By: RENAE Diltiazem HCl (Diltiazem Hcl 5 Mg/Ml 5 Ml Vial) 15 mg IV NOW STA Stop: 10/16/21 13:17 Last Admin: 10/16/21 13:20 Dose: 15 mg Documented By: RENAE Co-signed By: JENNIFER Diltiazem HCl 125 mg/ Dextrose 125 mls @ 7.5 mls/hr IV .[id number] [facility]; Protocol Stop: 11/15/21 11:44 Last Titration: 10/16/21 18:44 Dose: 0 mg/hr, 0 mls/hr Documented By: SER Co-signed By: TALITA Titration: 10/16/21 18:09 Dose: 5 mg/hr, 5 mls/hr Documented By: SER Co-signed By: OAM Titration: 10/16/21 17:37 Dose: 7.5 mg/hr, 7.5 mls/hr Documented By: SER Co-signed By: AM Titration: 10/16/21 14:04 Dose: 10 mg/hr, 10 mls/hr Documented By: OAM Co-signed By: KN Titration: 10/16/21 13:31 Dose: 5 mg/hr, 5 mls/hr Documented By: NA Co-signed By: AM Titration: 10/16/21 12:57 Dose: 0 mg/hr, 0 mls/hr Documented By: SER Co-signed By: OAM Admin: 10/16/21 11:53 Dose: 5 mg/hr, 5 mls/hr Documented By: OAM Co-signed By: [place] Sodium Chloride (Nss 1000ml) 1,000 mls @ 999 mls/hr IV .Q1H1M ONE Stop: 10/16/21 12:36 Last Infusion: 10/16/21 13:45 Dose: 0 mls/hr Documented By: Admin: 10/16/21 11:39 Dose: 999 mls/hr Documented By: OAGuero Ceftriaxone Sodium (Rocephin) 2,000 mg in 70 mls @ 140 mls/hr IV NOW STA Stop: 10/16/21 14:37 Last Admin: 10/16/21 21:13 Dose: Not Given Documented By: EL Doxycycline Hyclate 100 mg/ (Dextrose) 110 mls @ 50 mls/hr IV NOW STA Stop: 10/16/21 16:19 Last Infusion: 10/16/21 21:15 Dose: 0 mls/hr Documented By: Admin: 10/16/21 15:00 Dose: 50 mls/hr Documented By: SER Sodium Chloride (Nss 1000ml) 250 mls @ 999 mls/hr IV .Q16M ONE Stop: 10/16/21 15:36 Last Infusion: 10/16/21 21:16 Dose: 0 mls/hr Documented By: Admin: 10/16/21 16:07 Dose: 999 mls/hr Documented By: SER Amiodarone HCl/Dextrose (Nexterone / D5w) 150 mg in 100 mls @ 600 mls/hr IV NOW STA Stop: 10/16/21 15:52 Last Infusion: 10/16/21 21:15 Dose: 0 mls/hr Documented By: ANTOINE Co-signed By: BERHANE Admin: 10/16/21 17:19 Dose: 600 mls/hr Documented By: FELICIA Co-signed By: SHREE Amiodarone HCl/Dextrose (Nexterone / D5w) 360 mg in 200 mls @ 33.333 mls/hr IV ONE ONE Stop: 10/16/21 21:53 Last Admin: 10/16/21 17:31 Dose: 1 mg/min, 33.3 mls/hr Documented By: FELICIA Co-signed By: AM Metoprolol Tartrate (Metoprolol Tartrate 1 Mg/Ml Vial) 5 mg IV NOW STA Stop: 10/16/21 15:21 Last Admin: 10/16/21 21:15 Dose: Not Given Documented By: ANTOINE Metoprolol Tartrate (Metoprolol Tartrate 25 Mg Tab) 25 mg PO ONE STA Stop: 10/16/21 16:44 Last Admin: 10/16/21 17:15 Dose: 25 mg Documented By: FELICIA Miscellaneous (Stat Iv Infusion Titration Per Protocol) 1 each N/A NOW STA; Protocol Stop: 10/16/21 11:35 Last Admin: 10/16/21 21:13 Dose: Not Given Documented By: ANTOINE Imaging Data Radiologist's Impression: Chest X-Ray 10/16/21 11:35 XR chest 1V portable HISTORY: 86 years-old Female Chest Pain acute atypical chest pain COMPARISON: None TECHNIQUE: Portable AP view of the chest FINDINGS: Cardiac silhouette is enlarged. Pulmonary vascular congestion. No pneumothorax or large pleural effusion. Mild right hemidiaphragmatic elevation. Degenerative changes of the shoulders and spine. IMPRESSION: Cardiomegaly with pulmonary vascular congestion. ACT 112: Negative or not required by law. The above report was generated using voice recognition software. It may contain grammatical, syntax or spelling errors. Electronically signed by: Ramu Camargo M.D. 10/16/2021 12:04 PM Abdomen/Pelvis CT 10/16/21 12:[address] WITHOUT CONTRAST CT DOSE: 555.31 mGy.cm HISTORY: Acute nausea, vomiting and diarrhea with renal failure n/v/d, renal failure TECHNIQUE: Multiaxial CT images of the abdomen and pelvis were performed without contrast. A dose lowering technique was utilized adhering to the principles of ALARA. COMPARISON STUDY: Chest radiograph of same day FINDINGS: Cardiomegaly with coronary artery calcifications. Small pleural effusions. Dependent bibasilar consolidation favors atelectasis. No pneumatosis or pneumoperitoneum. The unenhanced spleen, and moderately tree pancreas are unremarkable. Mildly irregular gallbladder wall thickening with pericholecystic fluid and edema. No definitive cholelithiasis. No biliary ductal dilation identified. Indeterminate hypodense 1.3 cm lesion of the left hepatic lobe, possibly a cyst. Nonspecific bilateral perinephric inflammatory stranding. 2.5 cm left-sided renal sinus cyst. No renal or ureteral calculi or hydronephrosis. Urinary bladder wall thickening with perivesicular stranding. Surgically absent uterus. Atherosclerosis of the aorta. There is no lymphadenopathy. Small hiatal hernia with distal esophageal wall thickening. Colonic diver ticulosis. The appendix is reportedly surgically absent. No bowel obstruction or bowel wall thickening. Degenerative changes of the spine, pelvis and hips. IMPRESSION: 1. Nonspecific color wall thickening with pericholecystic fluid. Right upper qu adrant abdominal ultrasound recommended to exclude acute cholecystitis. 2. Urinary bladder wall thickening with perivesicular and perinephric stranding. Correlate with urinalysis to exclude cystitis. 3. No bowel obstruction or bowel wall thickening. 4. Chronic diverticulosis. 5. Small hiatal hernia. ACT 112: Negative or not required by law. The above report was generated using voice recognition software. It may contain grammatical, syntax or spelling errors. Electronically signed by: Ramu Camargo M.D. 10/16/2021 2:39 PM Discharge Plan Visit Data Chief Complaint: Tachycardia Stated Complaint: TACHYCARDIA, HYPOTENSIVE ED Provider: Avelino Anderson Discharge Problem: Atrial fibrillation with RVR, Increased anion gap metabolic acidosis, Elevated troponin, New onset atrial fibrillation, Acute on chronic renal insufficiency, SIRS (systemic inflammatory response syndrome) Patient Disposition: Admitted As Inpatient Discharge Instructions Interventions: ED Discharge Assessment Last Done: 10/16/21 20:07
--- NOTE | 2021-10-16 12:06 | XRay Report ---
XR chest 1V portable HISTORY: 86 years-old Female Chest Pain acute atypical chest pain COMPARISON: None TECHNIQUE: Portable AP view of the chest FINDINGS: Cardiac silhouette is enlarged. Pulmonary vascular congestion. No pneumothorax or large pleural effus ion. Mild right hemidiaphragmatic elevation. Degenerative changes of the shoulders and spine. IMPRESSION: Cardiomegaly with pulmonary vascular congestion. ACT 112: Negative or not required by law. The above report was generated using voice recognition software. It may contain grammatical, syntax o r spelling errors. Electronically signed by: Ramu Camargo M.D. 10/16/2021 12:04 PM
[2021-10-16 12:15] LABS: Albumin Level 3.3 gm/dl (3.4-5.0); Anion Gap 18 (3-11); Bilirubin,Total 0.6 mg/dl (0.2-1.0); Calcium 7.7 mg/dl (8.5-10.1); Carbon Dioxide 15 mmol/L (21-32); Chloride 104 mmol/L (98-107); Potassium 4.3 mmol/L (3.5-5.1); Sodium 137 mmol/L (136-145)
[2021-10-16 12:21] LABS: Alanine Aminotransferase 122 U/L (7-52); Albumin Globulin Ratio 1.1 (0.9-2); Alkaline Phosphatase 76 U/L (34-104); Aspartate Aminotransferase 112 U/L (13-39); BUN Creatinine Ratio 21.6 (10-20); Blood Urea Nitrogen 62 mg/dl (6-23); Est GFR (African American) 16.3 ml/min; Globulin 3.1 gm/dl (2.5-4.0); Glucose 132 mg/dl (70-99(Fasting)); Lipase 15 U/L (11-82); Phosphorus 6.3 mg/dl (2.5-4.9); Total Protein 6.4 gm/dl (6.0-8.3)
[2021-10-16 12:35] LABS: Adenovirus PCR Not Detected (NotDetected); Bordetella parapertussis PCR Not Detected (NotDetected); Bordetella pertussis PCR Not Detected (NotDetected); Chlamydia pneumoniae PCR Not Detected (NotDetected); Coronavirus 229E PCR Not Detected (NotDetected); Coronavirus CoV-2 (COVID19)PCR Not Detected (NotDetected); Coronavirus HKU1 PCR Not Detected (NotDetected); Coronavirus NL63 PCR Not Detected (NotDetected); Coronavirus OC43PCR Not Detected (NotDetected); Human Metapneumovirus PCR Not Detected (NotDetected); Influenza A PCR Not Detected (NotDetected); Influenza B PCR Not Detected (NotDetected); Mycoplasma pneumoniae PCR Not Detected (NotDetected); Parainfluenza Virus 1 PCR Not Detected (NotDetected); Parainfluenza Virus 2 PCR Not Detected (NotDetected); Parainfluenza Virus 3 PCR Not Detected (NotDetected); Parainfluenza Virus 4 PCR Not Detected (NotDetected); Respiratory Syncytial VirusPCR Not Detected (NotDetected); Rhinovirus/Enterovirus PCR Not Detected (NotDetected)
--- NOTE | 2021-10-16 13:01 | Electrocardiogram Report ---
Test Reason : Blood Pressure : / mmHG Vent. Rate : 097 BPM Atrial Rate : 097 BPM P-R Int : 180 ms QRS Dur : 062 ms QT Int : 374 ms P-R-T Axes : 058 -11 073 degrees QTc Int : 474 ms Sinus rhythm with Premature atrial complexes Low voltage QRS Borderline ECG When compared with ECG of 16-OCT-2021 11:30, Sinus rhythm has replaced Atrial fibrillation Vent. rate has decreased BY [address] and T wave abnormality no longer present Confirmed by Bong Freed ([id number]) on 10/16/2021 1:01:02 PM Referred By: ED Confirmed By:Bong Freed
[2021-10-16 13:54] LABS: Procalcitonin 1.36 ng/ml (0-0.5)
[2021-10-16] MEDS ORDERED: cefTRIAXone SODIUM 2,000 MG/70 ML BAG IV STA (14:08)
[2021-10-16] MEDS ORDERED: DOXYCYCLINE HYCLATE 100 MG in DEXTROSE 5% 100 ML IV STA (14:08)
--- NOTE | 2021-10-16 14:41 | CT Scan Report ---
ABDOMEN AND PELVIS CT WITHOUT CONTRAST CT DOSE: 555.31 mGy.cm HISTORY: Acute nausea, vomiting and diarrhea with renal failure n/v/d, renal failure TECHNIQUE: Multiaxial CT images of the abdomen and pelvis were performed without contrast. A dose lo wering technique was utilized adhering to the principles of ALARA. COMPARISON STUDY: Chest radiograph of same day FINDINGS: Cardiomegaly with coronary artery calcifications. Small pleural effusions. Dependent bibasi lar consolidation favors atelectasis. No pneumatosis or pneumoperitoneum. The unenhanced spleen, and moderately tree pancreas are unremarkable. Mildly irregular gallbladder wall thickening with perichol ecystic fluid and edema. No definitive cholelithiasis. No biliary ductal dilation identified. Indeter minate hypodense 1.3 cm lesion of the left hepatic lobe, possibly a cyst. Nonspecific bilateral perinephric inflammatory stranding. 2.5 cm left-sided renal sinus cyst. No toño l or ureteral calculi or hydronephrosis. Urinary bladder wall thickening with perivesicular stranding . Surgically absent uterus. Atherosclerosis of the aorta. There is no lymphadenopathy. Small hiatal hernia with distal esophageal wall thickening. Colonic diverticulosis. The appendix is r eportedly surgically absent. No bowel obstruction or bowel wall thickening. Degenerative changes of t he spine, pelvis and hips. IMPRESSION: 1. Nonspecific color wall thickening with pericholecystic fluid. Right upper quadrant abdominal ultra sound recommended to exclude acute cholecystitis. 2. Urinary bladder wall thickening with perivesicular and perinephric stranding. Correlate with urina lysis to exclude cystitis. 3. No bowel obstruction or bowel wall thickening. 4. Chronic diverticulosis. 5. Small hiatal hernia. ACT 112: Negative or not required by law. The above report was generated using voice recognition software. It may contain grammatical, syntax o r spelling errors. Electronically signed by: Ramu Camargo M.D. 10/16/2021 2:39 PM
[2021-10-16] MEDS ORDERED: Heparin IV Adult Wt-Based Standard *NO* Bolus Protocol IV ONE (14:56)
--- NOTE | 2021-10-16 14:57 | History & Physical Report ---
Date of Service October 16, 2021 Assessment & Plan (1) Atrial fibrillation with RVR: Plan: Diminished appetite, 2 days of nausea/vomiting/diarrhea. Had some nonproductive cough as of this morning Patient denies abdominal pain, has a diminished appetite and diarrhea for around 2 days With leukocytosis, elevated procalcitonin CXR: Cardiomegaly with pulmonary vascular congestion CTchest pending. Procalcitonin 1.36 Bio fire negative CTA/P: Pericholecystic fluid, right upper ultrasound follow-up recommended. Gallbladder ultrasound ultrasound pending. Patient has lightened colored stools, but no pain - BC pending - Empiric rocpehin verted to Unasyn for empiric coverage Cough may be due to pulmonary congestion in the setting of new rate related failure. Echo is pending New A. fib RVR to the 200s, hypotensive Received 10 mg diltiazem in the field, improved to 170s with improvement in pressure. Received an additional 15 mg with cardioversion, briefly regular, then reverted to A. fib in the 200s. Second 15 mg dose of diltiazem gtt. given, rates improved to 125 and pressures tolerating Diltiazem GTT continued in ER, but patient with heart rate of 1 20-1 60s and and mildly hypotensive systolic 951 10 Heparin GTT started with [id number] 2+ Patient is being fluid resuscitated With evidence of end organ hypoperfusion and inadequate rate control with borderline pressures and diltiazem drip with an adequate control will need to consider adjunct options. Digoxin not recommended in the setting of СВЕТЛАНА on CKD. Patient has been in sinus recently, discussed risk/benefits of amiodarone infusion including rate control with better blood pressure parameters but risk of stroke as patient has not been anticoagulated for more than 72 hours with an unknown duration of A. fib. Given hypoperfusion and endorgan ischemia with hypo tension in room, will start amnio drip at this time. Ideally switch from dill gtt. to amnio gtt. with metoprolol [id number] 2+, heparin drip started Echo pending, no prior history of heart failure Unknown duration of A. fib СВЕТЛАНА CKD rate related failure with volume depletion and poor p.o. intake for several - BMP daily - QUINCY held Renally adjust medications, BMP daily Would avoid digoxin and poor underlying renal function. Troponin elevation High-sensitivity troponin 104 Repeat pending Likely demand with A. fib RVR Patient is clinically without chest pain/chest pressure at any point New transaminitis AST 112, ALT 122, elevated lactate on admission Suspect an organ ischemia from perfusion in the setting of rapid A. fib DVT prophylaxis: Heparin eyes Diet: Heart healthy, DM Disposition: PCU CODE STATUS: Full code (2) Dyslipidemia: (3) Esophageal reflux: (4) Hypertension: (5) Prediabetes: (6) Spinal stenosis, lumbar: History of Present Illness Primary Care Provider: Tripp Ortega MD 86-year-old female who presents with 2-3 days of diarrhea, recent mild cough, was found to be in A. fib with RVR Per ER: COVID negative Cough, congestion, N/V/D over past several days + Weakness EMS called to assisted living New afib with RVR in 200s, hypotensive 80/40s 10mg dilt in the field. improved 170s, pressures improved 15mg dilt here with improvement and spontaneously cardioverted with pressures improved. Drip stopped for NSR, reverted back to 200s in afib. second 15 dilt gtt and hr now 125 afib. Anion gap metabolic acidosis suspect 2/2 ketosis Lactate 2.5, no eating/drinking BC pending. PCT elevated 1. Empiric Rocephin/Doxy of CAP Cr 2.8 baseline 1.1 LFTs elevated suspected stress vs anaplasma covered with doxy, plt normal CT-A/P: 1. Nonspecific color wall thickening with pericholecystic fluid. Right upper quadrant abdominal ultrasound recommended to exclude acute cholecystitis. 2. Urinary bladder wall thickening with perivesicular and perinephric stranding. Correlate with urinalysis to exclude cystitis. 3. No bowel obstruction or bowel wall thickening.4. Chronic diverticulosis.5. Small hiatal hernia. No allergies. +decreased appetite, light colored BMs x2 days, poor appetite. Denies pain. No chest pain, no palitations, no shortness of breath. Very poor appetite for 2 days with minimal intake, but has had no chest pain at any time. Was a little short of breath this morning. Denies orthopnea. Denies fever/chills/sweats. S he has not had any abdominal pain. Not sure why she is not hungry, just reports she overall feels tired. No history of A. fib, reports she really has been otherwise pretty healthy without any significant medical problems. Some hypertension well-controlled. Denies tobacco, alcohol, medical marijuana use. No history of bleeding. No history of heart disease or strokes. Per ED without DM. Reflux managed with PPI as needed. Medical History: Reviewed Medications: Reviewed Surgical History: Reviewed Allergies: Reviewed Social History: No tobacco/Etoh Code Status: Ousmane Stout [phone] surrogate DM. Full Code. Allergies Allergy/AdvReac Type Severity Reaction Status Date / Time No Known Allergies Allergy Verified 10/16/21 15:36 Home Medications Medication Instructions Recorded Confirmed Type cholecalciferol (vitamin D3) 50 2,000 units PO QAM 10/13/18 08/22/21 History mcg (2,000 unit) capsule hydrochlorothiazide 12.5 mg capsule 12.5 mg PO DAILY #90 caps 01/10/21 08/22/21 Rx lisinopril 5 mg tablet 5 mg PO DAILY #90 tabs 01/10/21 08/22/21 Rx simvastatin 20 mg tablet 20 mg PO DAILY #90 tabs 03/16/21 08/22/21 Rx omeprazole magnesium 20 mg 20 mg PO QAM 07/29/21 08/22/21 History tablet,delayed release calcium carbonate 500 mg calcium 500 mg PO DAILY 10/16/21 10/16/21 History (1,250 mg) tablet estradiol 0.025 mg/24 hr weekly 1 patch transdermal WK 10/16/21 10/16/21 History transdermal patch (Climara) omega-3 fatty acids 1,000 mg 1,000 mg PO DAILY 10/16/21 10/16/21 History capsule Past Med/Surg History Medical History Diverticulosis Dyslipidemia Esophageal reflux History of cardiac murmur Hx of migraines OCCULAR MIGRAINES Hypertension Osteopenia Prediabetes SNHL (sensorineural hearing loss) Spinal stenosis, lumbar Surgical History H/O oophorectomy H/O sinus surgery H/O tooth extraction History of anesthesia reaction HAS WOKEN UP IN MIDDLE OF COLONOSCOPIES History of cataract surgery LEFT History of colonoscopy History of esophagogastroduodenoscopy (EGD) History of hysterectomy History of tonsillectomy and adenoidectomy Family History Brother Colon cancer Cancer of unknown origin Sister Pancreatic cancer Pancreatic carcinoma Mother Diabetes Cardiac disorder Myocardial infarction Hypertension Father Hypertension Stroke Other No family history of adverse response to anesthesia Denies family history of Ovarian cancer Prostate cancer Breast cancer Social History Smoking Status: Never smoker Second Hand Exposure: Yes (IN THE PAST); Hx Alcohol Use: No Hx Substance Use: No Preferred Language: Gabonese Communication Ability: Effective Visual Impairment: No Limitations Hearing Ability: Normal Electronic Component Processor Required: No Beliefs That Will Affect Care: None marital status: / Current Living Situation: Alone Current Living Situation Comment: LIVES INDEP. APARTMENT FOR SENIORS>[facility] current occupational status: retired Feels Safe at Home: Yes Childhood Exposure to Second-Hand Smoke: No Dental Care, Regularly: Yes Physical Activity Frequency: 3-4 Times per Week Seatbelt Use: always Sunscreen Use: No Assistive Devices: Glasses Review of Systems Review of Systems: All systems reviewed & are unremarkable except as noted in Subjective Physical Exam Physical Exam: General: A&Ox3. NAD. Cooperative. HEENT: Atraumatic, normocephalic. Vision and hearing intact Pulm: Basilar crackles symmetrical chest rise. No increase in work of breathing. No respiratory distress. Cardiac: Regular, tachycardic. Radial pulses intact and symmetrical. Abdominal: Nontender, nondistended, soft. BS present. No Gutiérrez's. Results & Data Results & Data ([facility]) Vital Signs (Past 12 Hours) Vital Signs Temp Pulse Pulse Resp BP BP Pulse Ox 10/16/21 14:01 122 H 24 107/74 92 10/16/21 13:45 128 H 32 H 101/77 97 10/16/21 13:33 114 H 16 110/70 93 10/16/21 13:25 214 H 18 80/62 L 88 L 10/16/21 12:00 96 H 26 H 120/104 H 95 10/16/21 11:31 211 H 24 107/83 93 10/16/21 11:58 100 H 25 H 107/83 94 10/16/21 11:45 96 10/16/21 11:45 96 10/16/21 11:15 37 C 204 H 20 107/83 93 O2 Del Method O2 Flow Rate 10/16/21 14:01 10/16/21 13:45 10/16/21 13:33 Nasal Cannula 2 10/16/21 13:25 Room Air 10/16/21 12:00 Room Air 10/16/21 11:31 10/16/21 11:58 Room Air 10/16/21 11:45 Room Air 10/16/21 11:45 Room Air 0 10/16/21 11:15 Room Air PG Care Time/CCT Total # of Minutes Spent Total Time Spent with Patient: Total time spent is greater than 50% in coordination of care (as documented) at patient's floor/unit and/or counseling patient: Coding Level of Care Code 77339 Initial Inpt Care Lvl 3 Diagnoses Atrial fibrillation with RVR I48.91 Dyslipidemia E78.5 Esophageal reflux K21.9 Hypertension I10 Prediabetes R73.03 Spinal stenosis, lumbar M48.061
[2021-10-16] MEDS ORDERED: PHARMACY GLYCEMIC MGMT CONSULT PRN (15:16)
[2021-10-16] MEDS ORDERED: SODIUM CHLORIDE 0.9% 1000ML 250 ML IV ONE (15:21)
[2021-10-16 15:31] LABS: Lyme Ab IgG w/WB Rflx Negative (Negative); Lyme Ab IgM w/WB Rflx Negative (Negative)
[2021-10-16] MEDS ORDERED: AMIODARONE / D5W 150 MG/100 ML BAG IV STA (15:43)
[2021-10-16] MEDS ORDERED: 0.2 MICRON FILTER SET 1 EACH IV STA (15:43)
[2021-10-16] MEDS ORDERED: AMIODARONE IV BOLUS & DRIP IV STA (15:43)
[2021-10-16] MEDS ORDERED: AMIODARONE / D5W 360 MG/200 ML BAG IV ONE (15:54)
[2021-10-16] MEDS: METOPROLOL TARTRATE 1 MG/ML VIAL IV STA ×2 (16:16→21:15)
[2021-10-16] MEDS: HEPARIN SODIUM/DEXTROSE 25,000 UNITS/500 ML BAG IV SCH (16:28)
[2021-10-16 16:39] LABS: INR 1.1 (0.9-1.1); Partial Thromboplastin Ratio 0.9; Partial Thromboplastin Time 24.3 Seconds (21.0-31.0); Prothrombin Time 11.8 Seconds (9.0-12.0)
[2021-10-16] MEDS ORDERED: METOPROLOL TARTRATE 25 MG TAB PO STA (16:43)
[2021-10-16] MEDS: LACTATED RINGER'S 1,000 ML IV SCH (17:24)
--- NOTE | 2021-10-16 18:05 | CT Scan Report ---
CT chest diagnostic wo con CT DOSE: 473.50 mGy.cm CLINICAL HISTORY: 86 years-old Female with respiratory failure. Acute respiratory failure TECHNIQUE: Multiaxial CT images of the chest were performed without contrast. A dose lowering techni que was utilized adhering to the principles of ALARA. COMPARISON: CT abdomen and pelvis of same day FINDINGS: Thyroid goiter. Limited study secondary to respiratory motion. Mild mediastinal and hilar a denopathy. Moderate cardiomegaly with moderate coronary artery and thoracic aortic calcifications. No thoracic aortic aneurysm. Small right and [id number] left pleural effusion. Intralobular sept al thickening with dependent bibasilar consolidation. Possible 4 mm fissural nodule of the right midd le lobe on image 169. The central airways are patent. Small moderate hiatal hernia with mid to distal esophageal wall thickening. Indeterminate 1.3 cm hypo density of the lateral left hepatic lobe. Degenerative changes of the spine and shoulders. No acute f racture identified. IMPRESSION: 1. Limited exam secondary to respiratory motion artifact. 2. Cardiomegaly with pulmonary edema, small right with [id number] left pleural effusions. 3. Dependent bibasilar consolidation suggestive of probable atelectasis. Pneumonitis could appear sim ilarly. 4. Hiatal hernia with mild distal esophageal wall thickening. ACT 112: Negative or not required by law. Electronically signed by: Ramu Camargo M.D. 10/16/2021 6:03 PM
[2021-10-16] MEDS: AMPICILLIN/SULBACTAM SOD 3,000 MG in 0.9 % SODIUM CHLORIDE 100 ML IV SCH (18:12)
[2021-10-16] MEDS ORDERED: CARBOHYDRATES FOR HYPOGLYCEMIA PO PRN (18:15)
[2021-10-16] MEDS ORDERED: GLUCOSE 40% GEL 15 GM TUBE PO PRN (18:15)
[2021-10-16] MEDS ORDERED: GLUCAGON FOR INJ 1 MG VIAL SQ PRN (18:15)
[2021-10-16] MEDS ORDERED: GLUCOSE 10 TAB/TUBE PO PRN (18:15)
[2021-10-16] MEDS ORDERED: DEXTROSE 50% 50 ML SYRINGE IV PRN (18:15)
[2021-10-16] MEDS ORDERED: POLYETHYLENE (MIRALAX) 17 GM PACK PO PRN (18:39)
[2021-10-16] MEDS: INSULIN ASPART PER UNIT SC SCH (21:30)
[2021-10-16] MEDS: METOPROLOL TARTRATE 25 MG TAB PO SCH (21:31)
[2021-10-16 21:37] LABS: Appearance Urine Cloudy (Clear); Bacteria Urine Automated 1+ (Negative); Bilirubin Urine Negative (Negative); Blood Urine Negative (Negative); Color Urine Yellow; Epithelial Cell Urine Auto >30 /lpf (0-5); Glucose Urine UA Negative (Negative); Ketones Urine Trace (Negative); Leukocyte Esterase Urine Negative (Negative); Nitrite Urine Negative (Negative); Protein Urine 1+ (Negative); Specific Gravity Urine 1.021 (1.000-1.030); Urobilinogen Urine Negative (Negative)
[2021-10-16] MEDS: AMIODARONE / D5W 360 MG/200 ML BAG IV SCH (22:59)
[2021-10-16 23:23] LABS: Partial Thromboplastin Ratio 1.8
[2021-10-17] MEDS: LACTATED RINGER'S 1,000 ML IV SCH ×4 (02:30→23:07)
[2021-10-17] MEDS: METOPROLOL TARTRATE 1 MG/ML VIAL IV PRN ×6 (04:59→20:24)
[2021-10-17] MEDS ORDERED: DIGOXIN 250 MCG in SYRINGE 9 ML IV ONE (05:30)
[2021-10-17] MEDS: AMPICILLIN/SULBACTAM SOD 3,000 MG in 0.9 % SODIUM CHLORIDE 100 ML IV SCH ×2 (05:49→18:10)
[2021-10-17 05:58] LABS: Basophils # (auto) 0.03 K/uL (0-0.2); Basophils % (auto) 0.3 %; Eosinophils # (auto) 0.02 K/uL (0-0.50); Eosinophils % (auto) 0.2 %; Hematocrit (blood only) 29.5 % (34.1-44.9); Hemoglobin 9.9 g/dl (12.0-16.0); Immature Granulocytes # (auto) 0.09 K/uL (0.00-0.02); Immature Granulocytes % (auto) 0.8 %; Lymphocytes # (auto) 1.33 K/uL (1.2-3.4); Mean Corpuscular Hemoglobin 31.5 pg (25.0-34.0); Mean Corpuscular Hgb Conc 33.6 g/dL (32.0-36.0); Mean Corpuscular Volume 93.9 fL (80.0-100.0); Mean Platelet Volume 9.7 fL (9.4-12.3); Monocytes # (auto) 0.86 K/uL (0.24-0.82); Monocytes % (auto) 7.8 %; Neutrophils # (auto) 8.72 K/uL (1.4-6.5); Neutrophils % (auto) 78.9 %; Platelet Count 230 K/uL (130-400); RDW Coefficient of Variation 14.3 % (11.5-14.5); RDW Standard Deviation 48.7 fL (36.4-46.3); Red Blood Count 3.14 M/uL (3.93-5.22); White Blood Count 11.05 K/ul (4.8-10.8)
--- NOTE | 2021-10-17 06:16 | Electrocardiogram Report ---
Test Reason : Blood Pressure : / mmHG Vent. Rate : 191 BPM Atrial Rate : 124 BPM P-R Int : 000 ms QRS Dur : 058 ms QT Int : 192 ms P-R-T Axes : 000 -16 184 degrees QTc Int : 342 ms Atrial fibrillation with rapid ventricular response Low voltage QRS Nonspecific ST and T wave abnormality T wave abnormality, consider lateral ischemia Abnormal ECG No previous ECGs available Confirmed by Wing Miller ([id number]) on 10/17/2021 6:15:34 AM Referred By: REFERRED SELF Confirmed By:Wing Miller
[2021-10-17 06:21] LABS: Partial Thromboplastin Ratio 2.7
[2021-10-17 06:31] LABS: Albumin Globulin Ratio 1.2 (0.9-2); BUN Creatinine Ratio 27.7 (10-20); Bilirubin,Total 0.4 mg/dl (0.2-1.0); Calcium 7.2 mg/dl (8.5-10.1); Est GFR (African American) 24.9 ml/min; Est GFR (Non-African American) 21.5 ml/min; Globulin 2.6 gm/dl (2.5-4.0); Magnesium 1.8 mg/dl (1.7-2.4); Potassium 3.2 mmol/L (3.5-5.1); Total Protein 5.6 gm/dl (6.0-8.3)
[2021-10-17] MEDS ORDERED: POTASSIUM CHLORIDE CRTAB 20 MEQ TABCR PO STA (07:48)
[2021-10-17] MEDS: INSULIN ASPART PER UNIT SC SCH ×4 (08:30→20:51)
[2021-10-17 08:33] LABS: Adenovirus F 40/41 PCR Not Detected (NotDetected); Astrovirus PCR Not Detected (NotDetected); Campylobacter PCR Not Detected (NotDetected); Clostridium diff Toxin A/B PCR Not Detected (NotDetected); Cryptosporidium PCR Not Detected (NotDetected); Cyclospora cayetanensis PCR Not Detected (NotDetected); Entamoeba histolytica PCR Not Detected (NotDetected); Enteroaggregative E.coli(EAEC) Not Detected (NotDetected); Enteropathogenic E.coli (EPEC) Not Detected (NotDetected); Enterotoxigenic E.coli (ETEC) Not Detected (NotDetected); Giardia lamblia PCR Not Detected (NotDetected); Norovirus GI/GII PCR Not Detected (NotDetected); Plesiomonas shigelloides PCR Not Detected (NotDetected); Rotavirus A PCR Not Detected (NotDetected); Salmonella PCR Not Detected (NotDetected); Sapovirus PCR Not Detected (NotDetected); Shiga-like Toxin E.coli (STEC) Not Detected (NotDetected); Shigella/Enteroinvasive E.coli Not Detected (NotDetected); Vibrio cholerae PCR Not Detected (NotDetected); Vibrio species PCR Not Detected (NotDetected); Yersinia enterocolitica PCR Not Detected (NotDetected)
[2021-10-17] MEDS: METOPROLOL TARTRATE 25 MG TAB PO SCH (09:25)
[2021-10-17] MEDS: AMIODARONE / D5W 360 MG/200 ML BAG IV SCH ×2 (09:34→19:58)
--- NOTE | 2021-10-17 10:49 | Ultrasound Report ---
US gallbladder CLINICAL HISTORY: RUQ pain, CT ?roe TECHNIQUE: Multiple real-time sonographic images of the right upper quadrant were obtained. Comparison: None available at the time of this dictation. FINDINGS: The liver is diffusely homogenous with normal contour and echogenicity. There is a cyst in the left l obe measuring 1.4 cm and 2 hyperechoic areas noted in the liver measuring up to 1.8 x 1.7 cm. No int rahepatic ductal dilatation is seen. No gallstones are seen. There is gallbladder wall edema. A sono graphic Gutiérrez's sign was not elicited by the superintendent drilling and production. The common duct measures 0.[address] at the level of the hepatic artery. The visualized portions of the pancreas appear normal. The right kidney shows normal echogenicity, cortical thickness and renal contour. The right kidney sh ows no evidence of hydronephrosis or mass. No ascites or free fluid is seen in Naqvi's pouch. IMPRESSION: Gallbladder wall edema with no evidence of stones and negative Gutiérrez's sign. Findings are equivocal for acute cholecystitis. If there is clinical concern, nuclear medicine HIDA scan could be performed. ACT 112: Negative or not required by law. Electronically signed by: Paul Concepcion M.D. 10/17/2021 10:48 AM
--- NOTE | 2021-10-17 12:41 | Pharmacy Report ---
Pharmacy Glycemic Short Note 2 - Date of Service October 17, 2021 - Glycemic Short BSG Results (Last 24 hours): 10/16/21 10/17/21 10/17/21 21:29 05:34 07:28 Glucose 103 H POC Glucose 122 H 96 10/17/21 11:13 Glucose POC Glucose 107 H OUTPATIENT ANTIDIABETIC REGIMEN: * N/A * A1c: 5.8% 06/17/21 ASSESSMENT: * Patient ordered a novolog scale and thus far has not required any coverage. BSGs ranging from 96-107 mg/dL today. PLAN FOR INPATIENT GLYCEMIC CONTROL: * Hold outpatient oral diabetes medications * Basal insulin * none * Bolus insulin * NovoLog per scale ACHS or Q6hrs while NPO * Goal Range: Low 120 mg/dL - High 160 mg/dL * Correction Factor: 40 mg/dL/unit * Nutritional / Prandial insulin per carb ratio of 1 unit per 18 grams CHO consumed
[2021-10-17 13:00] LABS: Partial Thromboplastin Ratio 1.9
[2021-10-17] MEDS: POTASSIUM CHLORIDE CRTAB 20 MEQ TABCR PO SCH ×3 (13:00→20:16)
--- NOTE | 2021-10-17 13:06 | Hospitalist Progress Note ---
Date of Service October 17, 2021 Assessment & Plan (1) Atrial fibrillation with RVR: Plan: Diminished appetite, 2 days of nausea/vomiting/diarrhea. Patient denies abdominal pain, has a diminished appetite and diarrhea for around 2 days With leukocytosis, elevated procalcitonin CXR: Cardiomegaly with pulmonary vascular congestion CTchest1. Limited exam secondary to respiratory motion artifact. 2. Cardiomegaly with pulmonary edema, small right with [id number] left pleural effusions. 3. Dependent bibasilar consolidation suggestive of probable atelectasis. Pneumonitis could appear similarly. 4. Hiatal hernia with mild distal esophageal wall thickening. Procalcitonin 1.36 --> 1.14 Bio fire negative, stool PCR neg CTA/P: Pericholecystic fluid, right upper ultrasound follow-up recommended. Gallbladder US: Gallbladder wall edema with no evidence of stones and negative Gutiérrez's sign. Findings are equivocal for acute cholecystitis. If there is clinical concern, nuclear medicine HIDA scan could be performed. - Remains without RUQ pain/sx. Will follow clinically ?viral enteritis, and continue tx for afib as below. HIDA if clinical concern for roe increased - BC ngtd - Empiric Unasyn for empiric coverage Cough may be due to pulmonary congestion in the setting of new rate related failure. Echo is pending New A. fib RVR to the 200s, hypotensive Received 10 mg diltiazem in the field, improved to 170s with improvement in pressure. Received an additional 15 mg with cardioversion, briefly regular, then reverted to A. fib in the 200s. Second 15 mg dose of diltiazem gtt. given, rates improved to 125 and pressures tolerating Diltiazem GTT continued in ER, but patient with heart rate of 1 20-1 60s and and mildly hypotensive systolic 951 10 Heparin GTT started with [id number] 2+ Patient is being fluid resuscitated With evidence of end organ hypoperfusion and inadequate rate control with borderline pressures and diltiazem drip with an adequate control will need to consider adjunct options. Digoxin not recommended in the setting of СВЕТЛАНА on CKD. Patient has been in sinus recently, discussed risk/benefits of amiodarone infusion including rate control with better blood pressure parameters but risk of stroke as patient has not been anticoagulated for more than 72 hours with an unknown duration of A. fib. Given hypoperfusion and endorgan ischemia with hypotension in room, started amnio drip at this time. Dill drip slowly downtrending Sherita stopped Echo pending, no prior history of heart failure Patient with reduced A. fib burden overnight, no episodes until optomechanical technician around when medications were new. Did have 1 episode of rates back to 150 with relative hypotension, converted with 1 push of Lopressor following a.m. oral metoprolol. Oral dose increased to 50 mg p.o. twice daily tartrate. Amiodarone drip continued, given poor tolerance to rate with hypotension and recurrent rate will likely convert to amiodarone p.o. with cards follow-up Unknown duration of A. fib СВЕТЛАНА CKD rate related failure with volume depletion and poor p.o. intake for several - BMP daily - QUINCY held Renally adjust medications, BMP daily Avoiding toxin due to СВЕТЛАНА Creatinine now downtrending, remains with elevated BUN/creatinine ratio. Tolerating orals, p.o. encouraged Troponin elevation High-sensitivity troponin 104 on admit Repeat downtrending, mild uptrend with return to RVR and then again downtre nding. Likely underlying CAD with demand Likely demand with A. fib RVR Patient is clinically without chest pain/chest pressure at any point. She does not feel her A. fib or have palpitations. New transaminitis AST 112, ALT 122, elevated lactate on admission. Lactate normalized, transaminitis downtrending Suspect an organ ischemia from perfusion in the setting of rapid A. fib Trend DVT prophylaxis: Heparin eyes Diet: Heart healthy, DM Disposition: PCU CODE STATUS: Full code (2) Dyslipidemia: (3) Esophageal reflux: (4) Hypertension: (5) Prediabetes: (6) Spinal stenosis, lumbar: Admission and Anticipated Discharge Date Admission Date: October 16, 2021 Subjective Seen at bedside. She continues to have no symptoms, other than diarrhea. Diarrhea continues to be loose and watery. She has no chest pain, chest pressu re, lightheadedness, dizziness, or palpitations. She does not feel her A. fib. Has not felt syncopal or presyncopal. Appetite is improving, eating breakfast at time of exam. No nausea/vomiting. Review of Systems Review of Systems: All systems reviewed & are unremarkable except as noted in Subjective Physical Exam Physical Exam: General: A&Ox3. NAD. Cooperative. HEENT: Atraumatic, normocephalic. Vision and hearing intact Pulm: Continues with bibasilar crackles, otherwise clear. No increase in work of breathing. No respiratory distress. Cardiac: Rate and rhythm at time of bedside assessment, per telemetry review previously with Aryan. fib RVR to 150s which converted radial pulses intact and symmetrical. Abdominal: Nontender, nondistended, soft. BS present. No Gutiérrez's. Results & Data Results & Data ([facility]) Vital Signs (Past 12 Hours) Vital Signs Temp Pulse Pulse Resp BP BP Pulse Ox 10/17/21 07:30 10/17/21 11:46 36.5 C 82 24 123/69 95 10/17/21 10:24 150 H 100/68 10/17/21 09:22 84 122/79 92 10/17/21 07:57 36.4 C L 75 20 126/87 95 10/17/21 07:00 86 10/17/21 05:03 118/68 10/17/21 04:59 162 H 118/68 10/17/21 03:44 36.6 C 82 16 108/72 94 O2 Del Method O2 Flow Rate 10/17/21 07:30 Nasal Cannula 2 10/17/21 11:46 Nasal Cannula 4 10/17/21 10:24 10/17/21 09:22 Nasal Cannula 2 10/17/21 07:57 Nasal Cannula 4 10/17/21 07:00 10/17/21 05:03 10/17/21 04:59 10/17/21 03:44 Nasal Cannula 2.0 PG Care Time/CCT Total # of Minutes Spent Total Time Spent with Patient: Total time spent is greater than 50% in coordination of care (as documented) at patient's floor/unit and/or counseling patient: Coding Level of Care Code 20452 Subseq Hosp Care Lvl 3 Diagnoses Atrial fibrillation with RVR I48.91 Dyslipidemia E78.5 Esophageal reflux K21.9 Hypertension I10 Prediabetes R73.03 Spinal stenosis, lumbar M48.061
[2021-10-17] MEDS: HEPARIN SODIUM/DEXTROSE 25,000 UNITS/500 ML BAG IV SCH (13:12)
--- NOTE | 2021-10-17 14:36 | XCELERA ---
[id number]
[2021-10-17] MEDS ORDERED: 0.2 MICRON FILTER SET 1 EACH IV ONE (20:30)
[2021-10-17] MEDS ORDERED: AMIODARONE / D5W 150 MG/100 ML BAG IV ONE (20:30)
[2021-10-17] MEDS: MAGNESIUM SULFATE / D5W 1 GM/100 ML BAG IV SCH ×2 (20:32→22:50)
[2021-10-17] MEDS: POTASSIUM CHLORIDE / WTR 10 MEQ/100 ML PLCT IV SCH ×2 (20:33→21:49)
[2021-10-17] MEDS: METOPROLOL TARTRATE 50 MG TAB PO SCH (20:52)
[2021-10-18] MEDS: MAGNESIUM SULFATE / D5W 1 GM/100 ML BAG IV SCH ×2 (00:50→02:27)
--- NOTE | 2021-10-18 05:43 | Electrocardiogram Report ---
Test Reason : Blood Pressure : / mmHG Vent. Rate : 080 BPM Atrial Rate : 080 BPM P-R Int : 182 ms QRS Dur : 072 ms QT Int : 408 ms P-R-T Axes : 048 -26 054 degrees QTc Int : 470 ms Normal sinus rhythm Low voltage QRS Borderline ECG When compared with ECG of 16-OCT-2021 11:47, Premature atrial complexes are no longer Present Confirmed by Wing Miller ([id number]) on 10/18/2021 5:43:42 AM Referred By: REFERRED SELF Confirmed By:Wing Miller
[2021-10-18] MEDS: AMIODARONE / D5W 360 MG/200 ML BAG IV SCH ×2 (05:59→17:10)
[2021-10-18] MEDS: LACTATED RINGER'S 1,000 ML IV SCH (05:59)
[2021-10-18] MEDS: AMPICILLIN/SULBACTAM SOD 3,000 MG in 0.9 % SODIUM CHLORIDE 100 ML IV SCH ×2 (06:01→17:11)
[2021-10-18] MEDS: METOPROLOL TARTRATE 1 MG/ML VIAL IV PRN ×5 (06:34→23:55)
[2021-10-18] MEDS: INSULIN ASPART PER UNIT SC SCH ×4 (08:30→20:57)
[2021-10-18] MEDS: METOPROLOL TARTRATE 50 MG TAB PO SCH ×2 (08:48→19:38)
[2021-10-18] MEDS: AMIODARONE 200 MG TAB PO SCH ×2 (09:11→16:19)
[2021-10-18 09:56] LABS: Basophils # (auto) 0.01 K/uL (0-0.2); Basophils % (auto) 0.1 %; Eosinophils # (auto) 0.02 K/uL (0-0.50); Eosinophils % (auto) 0.2 %; Hematocrit (blood only) 31.7 % (34.1-44.9); Hemoglobin 10.5 g/dl (12.0-16.0); Immature Granulocytes # (auto) 0.08 K/uL (0.00-0.02); Immature Granulocytes % (auto) 0.6 %; Lymphocytes # (auto) 1.01 K/uL (1.2-3.4); Mean Corpuscular Hemoglobin 31.3 pg (25.0-34.0); Mean Corpuscular Hgb Conc 33.1 g/dL (32.0-36.0); Mean Corpuscular Volume 94.3 fL (80.0-100.0); Monocytes % (auto) 10.3 %; Neutrophils # (auto) 10.25 K/uL (1.4-6.5); Neutrophils % (auto) 80.8 %; Nucleated RBC # (auto) 0.02 K/uL (0-0); Nucleated RBC % (auto) 0.2 %; Platelet Count 283 K/uL (130-400); RDW Coefficient of Variation 14.4 % (11.5-14.5); RDW Standard Deviation 49.3 fL (36.4-46.3); Red Blood Count 3.36 M/uL (3.93-5.22); White Blood Count 12.67 K/ul (4.8-10.8)
[2021-10-18 10:20] LABS: Partial Thromboplastin Ratio 2.4
[2021-10-18 10:21] LABS: Partial Thromboplastin Time 67.2 Seconds (21.0-31.0)
[2021-10-18] MEDS: HEPARIN SODIUM/DEXTROSE 25,000 UNITS/500 ML BAG IV SCH ×3 (10:23→15:43)
[2021-10-18 11:17] LABS: Albumin Globulin Ratio 1.1 (0.9-2); Albumin Level 3.1 gm/dl (3.4-5.0); BUN Creatinine Ratio 24.3 (10-20); Bilirubin,Total 0.3 mg/dl (0.2-1.0); Calcium 7.8 mg/dl (8.5-10.1); Creatinine Clr Calc Pharmacy 28.6 ml/min; Est GFR (African American) 37.5 ml/min; Est GFR (Non-African American) 32.3 ml/min; Globulin 2.7 gm/dl (2.5-4.0); Magnesium 2.7 mg/dl (1.7-2.4); Potassium 4.1 mmol/L (3.5-5.1); Total Protein 5.8 gm/dl (6.0-8.3)
--- NOTE | 2021-10-18 12:00 | Pharmacy Report ---
Pharmacy Glycemic Sign Off Nt - Date of Service October 18, 2021 - Assessment & Plan ASSESSMENT: * Pharmacy was consulted by Dr Harvey on 10/16/21 for glycemic control and to write orders per [facility] inpatient glycemic control protocol. A1c: 5.8%. * Major changes made by pharmacy to antidiabetic regimen include: * none * Patient has been receiving/requiring 0 units of insulin per day for adequate glycemic control * BSGs ranging 93- 127 mg/dl * Regimen has only required minor adjustments over the past 48hrs to achieve this level of control * Do not anticipate further changes in patient status that would quickly deteriorate glycemic control (i.e. patient to be NPO for upcoming procedure, steroids tapering, starting tube feedings, etc). * Please see recommendations for outpatient antidiabetic regimen below. PLAN FOR INPATIENT GLYCEMIC CONTROL: No changes needed to current regimen. * Continue NovoLog per scale ACHS/Q6hrs while NPO * Goal range = 120 - 160 mg/dl * CF = 40 mg/dl/unit * CR = no carb coverage at this time * Pharmacy is signing off of glycemic consult and will no longer be making adjustments to inpatient regimen. Please feel free to re-consult if needed. Thank you.
[2021-10-18 16:22] LABS: Partial Thromboplastin Ratio 2.1
[2021-10-18 16:25] LABS: Partial Thromboplastin Time 57.8 Seconds (21.0-31.0)
[2021-10-18 16:36] LABS: BUN Creatinine Ratio 23.6 (10-20); Calcium 7.9 mg/dl (8.5-10.1); Creatinine Clr Calc Pharmacy 28.6 ml/min; Est GFR (African American) 37.5 ml/min; Est GFR (Non-African American) 32.3 ml/min; Magnesium 2.5 mg/dl (1.7-2.4); Potassium 3.8 mmol/L (3.5-5.1)
--- NOTE | 2021-10-18 17:54 | Cardiology Consultation ---
Date of Consultation October 18, 2021 Assessment & Plan (1) Atrial fibrillation with RVR: (2) Right atrial mass: (3) Elevated troponin: (4) Hypoxia: Plan ASSESSMENT/PLAN: 1. Atrial fibrillation with rapid ventricular response: Diagnosis discussed with her and son in detail. On IV amiodarone due to poorly controlled heart rates and concern for hypotension while on rate-controlling medications. Continue IV amiodarone. Less frequent AFib noted on telemetry. Continue with loading process. Will considered transitioning to p.o. in the next day or so. Discussed treatment strategies. We discussed potential adverse reactions of amiodarone. Monitor TSH and transaminase levels. Transaminase levels were elevated prior to amiodarone initiation and have since trended downward. Continue anticoagulation for stroke risk reduction if no contraindication. 2. Right atrial mass: We discussed finding on echo. We discussed potential etiologies such as myxoma, thrombus, or other etiology. If thrombus, would recommend anticoagulation therapy whichshe is receiving due to AFib. Primary hospitalist, Dr. Harvey, is considering CTA when renal function acceptable. Regardless of etiology, potential for embolic phenomena. If truly a mass, discussed potential for CT surgical involvement for resection. She is not interested in such aggressive measures. Therefore, will not pursue transesophageal echo at this time as it will not likely global climate change researcher. We discussed the fact that BRIAN may allow for better visualization but if not going to global climate change researcher, no BRIAN for now. Can repeat transthoracic echo in the future for surveillance. Both her and her son were in agreement for less aggressive measures. 3. Elevated troponin: Likely due to demand ischemia in the setting of AFib with RVR and overall presentation concerning for infectious process. She did not present with acute coronary syndrome. 4. Hypoxia: This is further being evaluated by primary hospitalist service with consideration of CT angiogram of the chest. Based on this afternoon's exam and the fact that she has been fluid resuscitated, concerned that there is some degree of hypervolemia currently. Would recommend Lasix 20 mg IV x1 for now and then can reassess. Monitor renal function closely. Would try to maintain negative net fluid balance if able. 5. Elevated transaminase/acute renal insufficiency/elevated procalcitonin/leukocytosis: As per primary hospitalist service. On antibiotic therapy. Her presenting symptoms of GI complaints and overall weakness, have not subsided even while in sinus rhythm and therefore likely underlying process. As per primary hospitalist service. 6. Disposition: Cardiology will continue to follow along. Patient care communicated with Dr. Harvey of the primary hospitalist service. Thank you for allowing me to participate in the care of your patient. Please call for any other questions or concerns. Sincerely, Tal Miller M.D. History of Present Illness Reason for Consultation: atrial fibrillation Requesting Physician: Guerrero Harvey MD Attending Physician: Guerrero Harvey MD History of Present Illness Mrs. Stout is a very pleasant 86-year-old female with a history significant for hypertension, dyslipidemia, spinal stenosis and paroxysmal atrial fibrillation (new this presentation). She was hospitalized on 10/16/2021 after coming to the emergency department due to weakness. She states that for 3 or 4 days prior to presentation, she had progressive weakness as well as diarrhea. She had decreased appetite and some nausea and vomiting, which has since resolved. She had a cough and also felt sh ort of breath at times. She was found to be in atrial fibrillation with rapid ventricular response on initial ECG with heart rates into the 190s. She had received intravenous diltiazem by EMS and additional dosing in the emergency department. She briefly converted to sinus rhythm only for AFib to return and was placed on a diltiazem drip. Per records, she was resuscitated with IV fluids. There was concern for end-organ hypoperfusion with borderline blood pressures and adequate rate control, with rate-controlling medications. Therefore, hospitalist service initiated amiodarone. Digoxin was not used due to acute kidney injury. While on amiodarone, she once again converted to sinus rhythm but has had recurrent sustained episodes of AFib with RVR. Overall, the frequency of AFib has improved while on amiodarone drip. While in sinus rhythm, such as during our visit this afternoon, she still has weakness however feels a bit stronger. She still has no appetite. She continues to have diarrhea, with 1 episode as of 2:00 p.m. this afternoon. She admits that she believes that she feels more tired while in AFib with RVR and her son had noted that her breathing looked worsened on exertion while in AFib. She denies melena, hematochezia, hematuria, or other bleeding. She denies chest pain, syncope, near-syncope, or palpitations. Also on presentation, she had elevated transaminase levels and was found to have acute kidney injury. Procalcitonin level was elevated and leukocytosis was present. She was placed on antibiotics by the hospitalist service. She describes herself as active when she feels well. She works out at the [employer] 3 days per week. Review of systems: As above. Review of systems otherwise negative/unremarkable. Family history: Father from stroke at the age of 48. Mother had RI in her 90s. Social history: She denies tobacco or alcohol abuse. She is a . Her in 2015. She resides at [facility]. She has a son and a daughter. Her son, Williams, was present at the bedside. Allergies Allergy/AdvReac Type Severity Reaction Status Date / Time No Known Allergies Allergy Verified 10/16/21 15:36 Home Medications Medication Instructions Recorded Confirmed Type cholecalciferol (vitamin D3) 50 2,000 units PO QAM 10/13/18 10/16/21 History mcg (2,000 unit) capsule hydrochlorothiazide 12.5 mg capsule 12.5 mg PO DAILY #90 caps 01/10/21 10/16/21 Rx lisinopril 5 mg tablet 5 mg PO DAILY #90 tabs 01/10/21 10/16/21 Rx simvastatin 20 mg tablet 20 mg PO DAILY #90 tabs 03/16/21 10/16/21 Rx omeprazole magnesium 20 mg 20 mg PO Q OTHER DAY 07/29/21 10/16/21 History tablet,delayed release calcium carbonate 500 mg calcium 500 mg PO DAILY 10/16/21 10/16/21 History (1,250 mg) tablet estradiol 0.025 mg/24 hr weekly 1 patch transdermal WK 10/16/21 10/16/21 History transdermal patch (Climara) omega-3 fatty acids 1,000 mg 1,000 mg PO DAILY 10/16/21 10/16/21 History capsule Patient History Medical History Diverticulosis Dyslipidemia Esophageal reflux History of cardiac murmur Hx of migraines OCCULAR MIGRAINES Hypertension Osteopenia Prediabetes SNHL (sensorineural hearing loss) Spinal stenosis, lumbar Surgical History H/O oophorectomy H/O sinus surgery H/O tooth extraction History of anesthesia reaction HAS WOKEN UP IN MIDDLE OF COLONOSCOPIES History of cataract surgery LEFT History of colonoscopy History of esophagogastroduodenoscopy (EGD) History of hysterectomy History of tonsillectomy and adenoidectomy Family History Brother Colon cancer Cancer of unknown origin Sister Pancreatic cancer Pancreatic carcinoma Mother Diabetes Cardiac disorder Myocardial infarction Hypertension Father Hypertension Stroke Other No family history of adverse response to anesthesia Denies family history of Ovarian cancer Prostate cancer Breast cancer Social History Smoking Status: Never smoker Second Hand Exposure: No; Do You Dip or Chew Tobacco: No; Tobacco Cessation Education Requested by Patient: No Hx Alcohol Use: No Hx Substance Use: No Preferred Language: Czech Communication Ability: Effective Visual Impairment: No Limitations Hearing Ability: Normal Erp Specialist Required: No Beliefs That Will Affect Care: None marital status: Single Current Living Situation: Alone Current Living Situation Comment: LIVES INDEP. APARTMENT [facility] [employer] [facility] current occupational status: retired How many Children do You have: 1 Other Information That Helps Us Care for You: No Feels Safe at Home: Yes Safety Concerns: Feels Safe At This Time Childhood Exposure to Second-Hand Smoke: No Dental Care, Regularly: Yes Physical Activity Frequency: 3-4 Times per Week Seatbelt Use: always Sunscreen Use: No Assistive Devices: Cane Physical Exam Physical Exam: Gen.: No acute distress. Alert and oriented. HEENT: Anicteric sclera. Neck: Elevated JVD at approximately 60 head elevation. No bruits. Normal carotid upstrokes bilaterally. Cardiac: No ventricular heave. Regular. Normal S1-S2. No murmurs, rubs, or coe ps. Pulmonary: Crackles at the right base, but otherwise clear. Crackles did not clear with coughing. Abdomen: Soft, nontender, nondistended, with normoactive bowel sounds. No bruits noted. Extremities: 2+ radial pulses bilaterally. 2+ posterior tibialis pulses bilaterally. No edema or cyanosis. Psychiatric: Affect appears appropriate. Results & Data ([facility]) Vital Signs (Past 12 Hours) Vital Signs Temp Pulse Pulse Resp BP BP Pulse Ox 10/18/21 16:00 151 H 104/69 10/18/21 15:44 36.4 C L 82 32 H 140/75 92 10/18/21 14:20 81 10/18/21 11:50 36.4 C L 78 20 124/87 95 10/18/21 07:30 10/18/21 08:48 151 H 107/93 10/18/21 07:22 36.5 C 77 22 133/95 94 10/18/21 07:00 79 10/18/21 06:34 147 H 134/109 H O2 Del Method O2 Flow Rate 10/18/21 16:00 10/18/21 15:44 Nasal Cannula 5 10/18/21 14:20 10/18/21 11:50 Nasal Cannula 5 10/18/21 07:30 Nasal Cannula 6 10/18/21 08:48 10/18/21 07:22 Nasal Cannula 6 10/18/21 07:00 10/18/21 06:34 Intake & Output 10/16/21 10/17/21 10/18/21 10/19/21 06:59 06:59 06:59 06:59 Intake Total 3719.483 / 3719.483 4774.183 / 4774.183 1882.179 / 1882.179 Output Total Balance 3698.483 / 3698.483 4768.183 / 4768.183 1881.179 / 1881.179 Weight 173 lb 11.588 oz 181 lb 3.52 oz Laboratory Results Laboratory Results - last 24 hr 10/17/21 10/18/21 10/18/21 20:30 07:08 09:00 WBC RBC Hgb Hct MCV MCH MCHC RDW Std Deviation RDW Coeff of Akiko Plt Count MPV Immature Gran % (Auto) Neut % (Auto) Lymph % (Auto) Jones % (Auto) Eos % (Auto) Baso % (Auto) Neut # (Auto) Lymph # (Auto) Jones # (Auto) Eos # (Auto) Baso # (Auto) Immature Gran # (Auto) Absolute Nucleated RBC Nucleated RBC % (auto) APTT 67.2 H* PTT Ratio 2.4 Sodium Potassium Chloride Carbon Dioxide Anion Gap BUN Creatinine Est Cr Clr Drug Dosing Est GFR ( Amer) Est GFR (Non-Af Amer) BUN/Creatinine Ratio Glucose POC Glucose 110 H 127 H Calcium Magnesium Total Bilirubin AST ALT Alkaline Phosphatase Total Protein Albumin Globulin Albumin/Globulin Ratio 10/18/21 10/18/21 10/18/21 09:00 09:00 11:05 WBC 12.67 H RBC 3.36 L Hgb 10.5 L Hct 31.7 L MCV 94.3 MCH 31.3 MCHC 33.1 RDW Std Deviation 49.3 H RDW Coeff of Akiko 14.4 Plt Count 283 MPV 10.0 Immature Gran % (Auto) 0.6 Neut % (Auto) 80.8 Lymph % (Auto) 8.0 Jones % (Auto) 10.3 Eos % (Auto) 0.2 Baso % (Auto) 0.1 Neut # (Auto) 10.25 H Lymph # (Auto) 1.01 L Jones # (Auto) 1.30 H Eos # (Auto) 0.02 Baso # (Auto) 0.01 Immature Gran # (Auto) 0.08 H Absolute Nucleated RBC 0.02 H Nucleated RBC % (auto) 0.2 APTT PTT Ratio Sodium 134 L Potassium 4.1 D Chloride 106 Carbon Dioxide 19 L Anion Gap 9 BUN 35 H D Creatinine 1.44 H D Est Cr Clr Drug Dosing 28.6 Est GFR ( Amer) 37.5 Est GFR (Non-Af Amer) 32.3 BUN/Creatinine Ratio 24.3 H Glucose 126 H POC Glucose 116 H Calcium 7.8 L Magnesium 2.7 H Total Bilirubin 0.3 AST 44 H ALT 110 H Alkaline Phosphatase 92 Total Protein 5.8 L Albumin 3.1 L Globulin 2.7 Albumin/Globulin Ratio 1.1 10/18/21 10/18/21 10/18/21 15:39 15:39 16:14 WBC RBC Hgb Hct MCV MCH MCHC RDW Std Deviation RDW Coeff of Akiko Plt Count MPV Immature Gran % (Auto) Neut % (Auto) Lymph % (Auto) Jones % (Auto) Eos % (Auto) Baso % (Auto) Neut # (Auto) Lymph # (Auto) Jones # (Auto) Eos # (Auto) Baso # (Auto) Immature Gran # (Auto) Absolute Nucleated RBC Nucleated RBC % (auto) APTT 57.8 H* PTT Ratio 2.1 Sodium 135 L Potassium 3.8 Chloride 106 Carbon Dioxide 21 Anion Gap 8 BUN 34 H Creatinine 1.44 H Est Cr Clr Drug Dosing 28.6 Est GFR ( Amer) 37.5 Est GFR (Non-Af Amer) 32.3 BUN/Creatinine Ratio 23.6 H Glucose 113 H POC Glucose 116 H Calcium 7.9 L Magnesium 2.5 H Total Bilirubin AST ALT Alkaline Phosphatase Total Protein Albumin Globulin Albumin/Globulin Ratio Diagnostic Findings Telemetry personally reviewed: Predominantly sinus rhythm in the past 24 hours with episodes of AFib with RVR, but less frequent than earlier this hospital stay. No significant pause. Echo 10/17/2021: Normal LV size, wall motion, systolic function. EF 55-60%. No LVH. Mild left atrial dilation. Mild MR. Moderate TR. Normal RVSP. Highly mobile echodense structure within the right atrium, which is not well visualized. ECGs personally reviewed: ECG 10/16/2021 at 11:30 a.m.: AFib RVR 191 beats per minute. Nonspecific ST/T- wave abnormality. ECG 10/16/2021 at 11:47 a.m.: Sinus rhythm with PACs at 97 beats per minute. ECG 10/17/2021: Sinus rhythm 80 beats per minute. Blood culture negative x2 from 10/16/2021: CT chest 10/16/2021 (noncontrast): Pulmonary edema with small right and [id number] left pleural effusion. Bibasilar consolidation probable atelectasis per Radiology, but possible pneumonitis. Hiatal hernia with mild distal esophageal wall thickening. Gallbladder ultrasound 10/17/2021: Equivocal findings for acute cholecystitis. Gallbladder wall edema. Medications Administered Current Inpatient Medications Acetaminophen (Acetaminophen 325 Mg Tab) 650 mg PO Q4H PRN PRN Reason: Pain or Fever Stop: 11/15/21 18:38 Amiodarone HCl (Amiodarone 200 Mg Tab) 200 mg PO BIDM ANNIE Stop: 11/17/21 07:59 Last Admin: 10/18/21 16:19 Dose: 200 mg Dextrose (Dextrose 50% 50 Ml Syringe) 25 - 50 ml IV UD PRN; Protocol PRN Reason: Hypoglycemia Protocol Stop: 11/15/21 18:14 Glucagon (Glucagon For Inj 1 Mg Vial) 1 mg SQ UD PRN; Protocol PRN Reason: Hypoglycemia Protocol Stop: 11/15/21 18:14 Glucose (Glucose 40% Gel 15 Gm Tube) 15 - 30 gm PO UD PRN; Protocol PRN Reason: Hypoglycemia Protocol Stop: 11/15/21 18:14 Glucose (Glucose 10 Tab/Tube) 4 - 8 tab PO UD PRN; Protocol PRN Reason: Hypoglycemia Protocol Stop: 11/15/21 18:14 Heparin Sodium/Dextrose (Heparin Sodium/Dextrose) 25,000 units in 500 mls @ 22 mls/hr IV .[id number] ANNIE; Protocol Stop: 11/15/21 15:14 Last Titration: 10/18/21 16:59 Dose: 1,100 units/hr, 22 mls/hr Ampicillin Sodium/Sulbactam Sodium 3,000 mg/ Sodium Chloride 108 mls @ 200 mls/hr IV Q12H [facility]; Protocol Stop: 10/26/21 17:44 Last Infusion: 10/18/21 17:44 Dose: Infused Amiodarone HCl/Dextrose (Nexterone / D5w) 360 mg in 200 mls @ 16.667 mls/hr IV .Q12H [facility] Stop: 11/15/21 21:44 Last Admin: 10/18/21 17:10 Dose: 0.5 mg/min, 16.7 mls/hr Insulin Aspart (Insulin Aspart Per Unit) 0 units SC ACHS [facility] Stop: 11/15/21 20:59 Last Admin: 10/18/21 16:17 Dose: Not Given Metoprolol Tartrate (Metoprolol Tartrate 1 Mg/Ml Vial) 5 mg IV Q5M PRN PRN Reason: HR >140, notify provider Stop: 11/15/21 18:32 Last Admin: 10/18/21 16:00 Dose: 5 mg Metoprolol Tartrate (Metoprolol Tartrate 50 Mg Tab) 50 mg PO BID [facility] Stop: 11/16/21 20:59 Last Admin: 10/18/21 08:48 Dose: 50 mg Miscellaneous (Carbohydrates For Hypoglycemia ) 15 - 30 gm PO UD PRN PRN Reason: Hypoglycemia Treatment Stop: 11/15/21 18:14 Polyethylene Glycol (Polyethylene (Miralax) 17 Gm Pack) 17 gm PO DAILY PRN PRN Reason: Constipation Stop: 11/15/21 18:38 PG Care Time/CCT Total # of Minutes Spent Total Time Spent with Patient: Total time spent is greater than 50% in coordination of care (as documented) at patient's floor/unit and/or counseling patient: Coding Level of Care Code 80099 Initial Inpt Care Lvl 3 Diagnoses Atrial fibrillation with RVR I48.91 Right atrial mass I51.89 Elevated troponin R77.8 Hypoxia R09.02
[2021-10-18] MEDS ORDERED: FUROSEMIDE INJ 20 MG/2 ML VIAL IV ONE (18:04)
--- NOTE | 2021-10-18 18:18 | Hospitalist Progress Note ---
Date of Service October 18, 2021 Assessment & Plan (1) Atrial fibrillation with RVR: Plan: New A. fib RVR to the 200s, hypotensive on admission Received 10 mg diltiazem in the field, improved to 170s with improvement in pressure. Received an additional 15 mg with cardioversion, briefly regular, then reverted to A. fib in the 200s. Second 15 mg dose of diltiazem gtt. given, rates improved to 125 and pressures tolerating Diltiazem GTT continued in ER, but patient with heart rate of 1 20-1 60s and and mildly hypotensive systolic 951 10 Heparin GTT started with [id number] 2+ Patient is being fluid resuscitated With evidence of end organ hypoperfusion and inadequate rate control with borderline pressures and diltiazem drip with an adequate control will need to consider adjunct options. Digoxin not recommended in the setting of СВЕТЛАНА on CKD. Patient has been in sinus recently, discussed risk/benefits of amiodarone infusion including rate control with better blood pressure parameters but risk of stroke as patient has not been anticoagulated for more than 72 hours with an unknown duration of A. fib. Given hypoperfusion and endorgan ischemia with hypotension in room, started amnio drip at this time. Dill drip slowly downtrending Sherita stopped With recurrent A. fib which quickly converts following metoprolol, gradually with shortening episodes however continues to flip in and out of A. fib with relative hypotension during episodes. Continue metoprolol, amiodarone; progressed to oral amnio as able Abnormal echo Mobile echodense structure within right atrium seen on echo Anticoagulated as noted above Would like to pursue CTA, however creatinine is still above baseline with some JVD today trialing a dose of Lasix. Tentatively performed tomorrow morning if renal function tolerates Lasix today Cardiology consulted, following. Discussed potential for surgical referral and intervention if myxoma, patient expressed that she would not be interested in this. BRIAN deferred did not manager exchange, continue anticoagulation and may follow-up TTE in future. Appreciate recommendations. Diminished appetite, 2 days of nausea/vomiting/diarrhea. Patient denies abdominal pain, has a diminished appetite and diarrhea for jennifer und 2 days With leukocytosis, elevated procalcitonin CXR: Cardiomegaly with pulmonary vascular congestion CTchest1. Limited exam secondary to respiratory motion artifact. 2. Cardiomegaly with pulmonary edema, small right with [id number] left pleural effusions. 3. Dependent bibasilar consolidation suggestive of probable atelectasis. Pneumonitis could appear similarly. 4. Hiatal hernia with mild distal esophageal wall thickening. Procalcitonin 1.36 --> 1.14 Bio fire negative, stool PCR neg CTA/P: Pericholecystic fluid, right upper ultrasound follow-up recommended. Gallbladder US: Gallbladder wall edema with no evidence of stones and negative Gutiérrez's sign. Findings are equivocal for acute cholecystitis. If there is clinical concern, nuclear medicine HIDA scan could be performed. - Remains without RUQ pain/sx. Will follow clinically ?viral enteritis, and continue tx for afib as below. HIDA if clinical concern for roe increased - BC ngtd - Empiric Unasyn for empiric coverage, patient has not had significant improvement in her diarrhea. If is not clinically progressing, would order HIDA after other evaluation of СВЕТЛАНА CKD rate related failure with volume depletion and poor p.o. intake for several - BMP daily - QUINCY held Renally adjust medications, BMP daily Creatinine downtrending and stabilized today. Clinically patient with mild volume overload, dose of Lasix given. If creatinine tolerated, ideally would be able to tolerate contrast for CTA above Acute hypoxic respiratory failure Initially thought to be due to some rate related failure and pulmonary congestion, with acute end organ dysfunction Patient has been adequately resuscitated, A. fib burden is improved and generally in sinus however her oxygen levels are not clinically progressing She is at risk for PE, and could have thrombus from her atrial mass noted above. She is currently undergoing treatment with anticoagulation, awaiting stable renal function to follow-up CTA Troponin elevation High-sensitivity troponin 104 on admit Repeat downtrending, mild uptrend with return to RVR and then again downtrending. Likely demand with A. fib RVR Patient is clinically without chest pain/chest pressure at any point. She does not feel her A. fib or have palpitations. New transaminitis AST 112, ALT 122, elevated lactate on admission. Lactate normalized, transaminitis doing to downtrend Suspect an organ ischemia from perfusion in the setting of rapid A. fib DVT prophylaxis: Heparinized Diet: Heart healthy, DM Disposition: PCU CODE STATUS: Full code (2) Dyslipidemia: (3) Esophageal reflux: (4) Hypertension: (5) Prediabetes: (6) Spinal stenosis, lumbar: Admission and Anticipated Discharge Date Admission Date: October 16, 2021 Subjective Seen at the bedside this morning. At time of bedside visit she reports she feels a little more tired than usual, but otherwise generally does not have symptoms. Did have transient increase in oxygen requirement this morning, fluids were stopped and creatinine is downtrending. Reports she does not get chest pain or palpitation with her A. fib, but notes that it does make her feel more tired and she think she is starting to be able to tell when she is in. Otherwise she is she is doing okay, denies nausea/vomiting/diarrhea/constipation. No bleeding. Review of Systems Review of Systems: All systems reviewed & are unremarkable except as noted in Subjective Physical Exam Physical Exam: General: A&Ox3. NAD. Cooperative. HEENT: Atraumatic, normocephalic. Pulm: Grossly clear with trace bibasilar crackles symmetrical chest rise. No increase in work of breathing. No respiratory distress. Cardiac: At morning assessment regular rate and rhythm, telemetry review has had short episodes of A. fib with RVR which quickly convert following metoprolol. Radial pulses intact and symmetrical. Abdominal: Nontender, nondistended, soft. BS present. Results & Data Results & Data ([facility]) Vital Signs (Past 12 Hours) Vital Signs Temp Pulse Pulse Resp BP BP Pulse Ox 10/18/21 16:00 151 H 104/69 10/18/21 15:44 36.4 C L 82 32 H 140/75 92 10/18/21 14:20 81 10/18/21 11:50 36.4 C L 78 20 124/87 95 10/18/21 07:30 10/18/21 08:48 151 H 107/93 10/18/21 07:22 36.5 C 77 22 133/95 94 10/18/21 07:00 79 10/18/21 06:34 147 H 134/109 H O2 Del Method O2 Flow Rate 10/18/21 16:00 10/18/21 15:44 Nasal Cannula 5 10/18/21 14:20 10/18/21 11:50 Nasal Cannula 5 10/18/21 07:30 Nasal Cannula 6 10/18/21 08:48 10/18/21 07:22 Nasal Cannula 6 10/18/21 07:00 10/18/21 06:34 PG Care Time/CCT Total # of Minutes Spent Total Time Spent with Patient: Total time spent is greater than 50% in coordination of care (as documented) at patient's floor/unit and/or counseling patient: Coding Level of Care Code 41337 Subseq Hosp Care Lvl 2 Diagnoses Atrial fibrillation with RVR I48.91 Dyslipidemia E78.5 Esophageal reflux K21.9 Hypertension I10 Prediabetes R73.03 Spinal stenosis, lumbar M48.061
[2021-10-19] MEDS: METOPROLOL TARTRATE 1 MG/ML VIAL IV PRN ×2 (01:57→20:40)
[2021-10-19] MEDS ORDERED: METOPROLOL TARTRATE 1 MG/ML VIAL IV STA (03:47)
[2021-10-19] MEDS: POTASSIUM CHLORIDE / WTR 10 MEQ/100 ML PLCT IV SCH ×3 (03:58→09:26)
[2021-10-19] MEDS: AMIODARONE / D5W 360 MG/200 ML BAG IV SCH ×2 (05:03→16:45)
[2021-10-19] MEDS: AMPICILLIN/SULBACTAM SOD 3,000 MG in 0.9 % SODIUM CHLORIDE 100 ML IV SCH ×2 (05:44→18:24)
[2021-10-19 06:44] LABS: Albumin Globulin Ratio 1.1 (0.9-2); Albumin Level 2.9 gm/dl (3.4-5.0); BUN Creatinine Ratio 23.7 (10-20); Bilirubin,Total 0.3 mg/dl (0.2-1.0); Calcium 7.7 mg/dl (8.5-10.1); Creatinine Clr Calc Pharmacy 30.4 ml/min; Est GFR (African American) 40.5 ml/min; Globulin 2.7 gm/dl (2.5-4.0); Total Protein 5.6 gm/dl (6.0-8.3)
[2021-10-19 06:47] LABS: Partial Thromboplastin Ratio 2.1
[2021-10-19 06:57] LABS: Partial Thromboplastin Time 58.8 Seconds (21.0-31.0)
[2021-10-19 07:29] LABS: Basophils # (auto) 0.01 K/uL (0-0.2); Basophils % (auto) 0.1 %; Eosinophils # (auto) 0.01 K/uL (0-0.50); Eosinophils % (auto) 0.1 %; Hematocrit (blood only) 30.1 % (34.1-44.9); Immature Granulocytes # (auto) 0.07 K/uL (0.00-0.02); Immature Granulocytes % (auto) 0.6 %; Lymphocytes # (auto) 1.13 K/uL (1.2-3.4); Lymphocytes % (auto) 9.4 %; Mean Corpuscular Hemoglobin 31.3 pg (25.0-34.0); Mean Corpuscular Hgb Conc 33.2 g/dL (32.0-36.0); Mean Corpuscular Volume 94.4 fL (80.0-100.0); Neutrophils # (auto) 9.56 K/uL (1.4-6.5); Neutrophils % (auto) 79.8 %; Platelet Count 301 K/uL (130-400); RDW Coefficient of Variation 14.2 % (11.5-14.5); RDW Standard Deviation 48.4 fL (36.4-46.3); Red Blood Count 3.19 M/uL (3.93-5.22); White Blood Count 11.98 K/ul (4.8-10.8)
[2021-10-19] MEDS: AMIODARONE 200 MG TAB PO SCH (07:46)
[2021-10-19] MEDS: METOPROLOL TARTRATE 50 MG TAB PO SCH ×2 (07:46→21:18)
[2021-10-19] MEDS: INSULIN ASPART PER UNIT SC SCH ×4 (07:47→20:41)
[2021-10-19] MEDS ORDERED: FUROSEMIDE 40 MG/4 ML VIAL IV ONE (09:20)
[2021-10-19] MEDS: HEPARIN SODIUM/DEXTROSE 25,000 UNITS/500 ML BAG IV SCH (09:26)
--- NOTE | 2021-10-19 10:54 | Cardiology Progress Note ---
Date of Service October 19, 2021 Assessment & Plan (1) Atrial fibrillation with RVR: (2) Right atrial mass: (3) Elevated troponin: (4) Hypoxia: Plan ASSESSMENT/PLAN: 1. Atrial fibrillation with rapid ventricular response: Increased AFib burden since last evening. Currently in sinus rhythm. Continue amiodarone drip. She is not fully loaded with amiodarone. If she has recurrent AFib today, would consider another bolus of amiodarone 150 mg IV x1. If AFib frequency does not further improved going forward, will discussed with electrophysiology. Potential adverse reaction of amiodarone has been discussed. Monitor TSH and transaminase levels. Transaminase levels were elevated prior to amiodarone initiation and have since trended downward. Continue anticoagulation for stroke risk reduction if no contraindication. 2. Right atrial mass: We have discussed finding on echo, with her son present. We discussed potential etiologies such as myxoma, thrombus, or other etiology. If thrombus, would recommend anticoagulation therapy which she is receiving due to AFib. Regardless of etiology, potential for embolic phenomena. If truly a mass, discussed potential for CT surgical involvement for resection. She is not interested in such aggressive measures. Therefore, will not pursue transesophageal echo at this time as it will not likely currency exchange specialist. We discussed the fact that BRIAN may allow for better visualization but if not going to currency exchange specialist, no BRIAN for now. Can repeat transthoracic echo in the future for surveillance. Both her and her son were in agreement for less aggressive measures. 3. Elevated troponin: Likely due to demand ischemia in the setting of AFib with RVR and overall presentation concerning for infectious process. She did not present with acute coronary syndrome. 4. Hypoxia: She appears hypervolemic and underwent fluid resuscitation initially. Oxygen demand has improved following dose of Lasix yesterday. Unclear she had significant urine output however. Discussed with nursing staff and requested that strict I&Os be measured. Lasix 40 mg IV x1 today. Would aim for negative net fluid balance. Also concern for embolic event to the lung such as pulmonary emboli. On anticoagulation therapy and if transition to DOAC, would consider treatment for PE, if not formally evaluated. 5. Elevated transaminase/acute renal insufficiency/elevated procalcitonin/leukocytosis: As per primary hospitalist service. On antibiotic therapy. Her presenting symptoms of GI complaints and overall weakness, remained while even in sinus rhythm. Fortunately her GI symptoms have improved and she has not had any further diarrhea. She remains weak. Consider PT. 6. Disposition: Cardiology will continue to follow along. Patient care communicated with Dr. Rashid of the primary hospitalist service. Admission and Anticipated Discharge Date Admission Date: October 16, 2021 Subjective Patient had significantly more AFib burden with RVR overnight. She was asymptomatic in this regard, denying palpitations, worsening shortness of breath, or chest pain. She has had increased cough with orange sputum production. Her supplemental oxygen requirement has reduced from 5 L down to 3 L. She received intravenous Lasix yesterday and appeared to tolerate it well, but unfortunately her urine output was not measured. Her biggest concern today was that she feels weak and she is wondering if she will be able to manage when she returns home. She was alone in her hospital room. Physical Exam Physical Exam: Gen.: No acute distress. Alert and oriented. HEENT: Anicteric sclera. Neck: Elevated JVD. Cardiac: No ventricular heave. Regular. Normal S1-S2. No murmurs, rubs, or gallops. Pulmonary: Bibasilar rales, but otherwise clear. Abdomen: Soft, nontender, nondistended, with normoactive bowel sounds. No bruits noted. Extremities: 2+ radial pulses bilaterally. 2+ posterior tibialis pulses bilaterally. Trace bilateral lower extremity edema. No cyanosis. Psychiatric: Affect appears appropriate. Results & Data ([facility]) Vital Signs (Past 12 Hours) Vital Signs Temp Pulse Pulse Resp BP BP Pulse Ox 10/19/21 07:45 147 H 16 104/82 96 10/19/21 03:58 144 H 10/19/21 03:55 36.6 C 145 H 22 103/80 95 10/19/21 01:57 151 H 119/82 10/19/21 00:00 60 10/19/21 00:00 36.6 C 80 22 119/82 94 10/18/21 23:55 149 H 119/82 O2 Del Method O2 Flow Rate 10/19/21 07:45 Room Air 3 10/19/21 03:58 10/19/21 03:55 Nasal Cannula 5 10/19/21 01:57 10/19/21 00:00 10/19/21 00:00 Nasal Cannula 2 10/18/21 23:55 Intake & Output 10/17/21 10/18/21 10/19/21 10/20/21 06:59 06:59 06:59 06:59 Intake Total 3719.483 / 3719.483 4774.183 / 4774.183 2985.898 / 2985.898 247.533 / 247.533 Output Total 6 / Balance 3698.483 / 3698.483 4768.183 / 4768.183 2984.898 / 2984.898 247.533 / 247.533 Weight 173 lb 11.588 oz 181 lb 3.52 oz 179 lb 10.828 oz Laboratory Results Laboratory Results - last 24 hr 10/18/21 10/18/21 10/18/21 09:00 11:05 15:39 WBC RBC Hgb Hct MCV MCH MCHC RDW Std Deviation RDW Coeff of Akiko Plt Count MPV Immature Gran % (Auto) Neut % (Auto) Lymph % (Auto) [place] % (Auto) Eos % (Auto) Baso % (Auto) Neut # (Auto) Lymph # (Auto) [place] # (Auto) Eos # (Auto) Baso # (Auto) Immature Gran # (Auto) APTT 57.8 H* PTT Ratio 2.1 Sodium 134 L Potassium 4.1 D Chloride 106 Carbon Dioxide 19 L Anion Gap 9 BUN 35 H D Creatinine 1.44 H D Est Cr Clr Drug Dosing 28.6 Est GFR ( Amer) 37.5 Est GFR (Non-Af Amer) 32.3 BUN/Creatinine Ratio 24.3 H Glucose 126 H POC Glucose 116 H Calcium 7.8 L Magnesium 2.7 H Total Bilirubin 0.3 AST 44 H ALT 110 H Alkaline Phosphatase 92 Total Protein 5.8 L Albumin 3.1 L Globulin 2.7 Albumin/Globulin Ratio 1.1 10/18/21 10/18/21 10/18/21 15:39 16:14 20:53 WBC RBC Hgb Hct MCV MCH MCHC RDW Std Deviation RDW Coeff of Akiko Plt Count MPV Immature Gran % (Auto) Neut % (Auto) Lymph % (Auto) [place] % (Auto) Eos % (Auto) Baso % (Auto) Neut # (Auto) Lymph # (Auto) [place] # (Auto) Eos # (Auto) Baso # (Auto) Immature Gran # (Auto) APTT PTT Ratio Sodium 135 L Potassium 3.8 Chloride 106 Carbon Dioxide 21 Anion Gap 8 BUN 34 H Creatinine 1.44 H Est Cr Clr Drug Dosing 28.6 Est GFR ( Amer) 37.5 Est GFR (Non-Af Amer) 32.3 BUN/Creatinine Ratio 23.6 H Glucose 113 H POC Glucose 116 H 131 H Calcium 7.9 L Magnesium 2.5 H Total Bilirubin AST ALT Alkaline Phosphatase Total Protein Albumin Globulin Albumin/Globulin Ratio 10/19/21 10/19/21 10/19/21 05:59 05:59 05:59 WBC 11.98 H RBC 3.19 L Hgb 10.0 L Hct 30.1 L MCV 94.4 MCH 31.3 MCHC 33.2 RDW Std Deviation 48.4 H RDW Coeff of Akiko 14.2 Plt Count 301 MPV 10.0 Immature Gran % (Auto) 0.6 Neut % (Auto) 79.8 Lymph % (Auto) 9.4 [place] % (Auto) 10.0 Eos % (Auto) 0.1 Baso % (Auto) 0.1 Neut # (Auto) 9.56 H Lymph # (Auto) 1.13 L [place] # (Auto) 1.20 H Eos # (Auto) 0.01 Baso # (Auto) 0.01 Immature Gran # (Auto) 0.07 H APTT 58.8 H* PTT Ratio 2.1 Sodium 134 L Potassium 4.0 Chloride 106 Carbon Dioxide 17 L Anion Gap 11 BUN 32 H Creatinine 1.35 H Est Cr Clr Drug Dosing 30.4 Est GFR ( Amer) 40.5 Est GFR (Non-Af Amer) 35.0 BUN/Creatinine Ratio 23.7 H Glucose 109 H POC Glucose Calcium 7.7 L Magnesium Total Bilirubin 0.3 AST 24 ALT 84 H Alkaline Phosphatase 81 Total Protein 5.6 L Albumin 2.9 L Globulin 2.7 Albumin/Globulin Ratio 1.1 10/19/21 07:24 WBC RBC Hgb Hct MCV MCH MCHC RDW Std Deviation RDW Coeff of Akiko Plt Count MPV Immature Gran % (Auto) Neut % (Auto) Lymph % (Auto) [place] % (Auto) Eos % (Auto) Baso % (Auto) Neut # (Auto) Lymph # (Auto) [place] # (Auto) Eos # (Auto) Baso # (Auto) Immature Gran # (Auto) APTT PTT Ratio Sodium Potassium Chloride Carbon Dioxide Anion Gap BUN Creatinine Est Cr Clr Drug Dosing Est GFR ( Amer) Est GFR (Non-Af Amer) BUN/Creatinine Ratio Glucose POC Glucose 177 H Calcium Magnesium Total Bilirubin AST ALT Alkaline Phosphatase Total Protein Albumin Globulin Albumin/Globulin Ratio Diagnostic Findings Telemetry personally reviewed: Increased AFib with RVR burden compared to previous 24 hours. Currently in sinus rhythm. Medications Administered Current Inpatient Medications Acetaminophen (Acetaminophen 325 Mg Tab) 650 mg PO Q4H PRN PRN Reason: Pain or Fever Stop: 11/15/21 18:38 Amiodarone HCl (Amiodarone 200 Mg Tab) 200 mg PO BIDM ANNIE Stop: 11/17/21 07:59 Last Admin: 10/19/21 07:46 Dose: 200 mg Dextrose (Dextrose 50% 50 Ml Syringe) 25 - 50 ml IV UD PRN; Protocol PRN Reason: Hypoglycemia Protocol Stop: 11/15/21 18:14 Glucagon (Glucagon For Inj 1 Mg Vial) 1 mg SQ UD PRN; Protocol PRN Reason: Hypoglycemia Protocol Stop: 11/15/21 18:14 Glucose (Glucose 40% Gel 15 Gm Tube) 15 - 30 gm PO UD PRN; Protocol PRN Reason: Hypoglycemia Protocol Stop: 11/15/21 18:14 Glucose (Glucose 10 Tab/Tube) 4 - 8 tab PO UD PRN; Protocol PRN Reason: Hypoglycemia Protocol Stop: 11/15/21 18:14 Heparin Sodium/Dextrose (Heparin Sodium/Dextrose) 25,000 units in 500 mls @ 22 mls/hr IV .[id number] ANNIE; Protocol Stop: 11/15/21 15:14 Last Admin: 10/19/21 09:26 Dose: 1,100 units/hr, 22 mls/hr Ampicillin Sodium/Sulbactam Sodium 3,000 mg/ Sodium Chloride 108 mls @ 200 mls/hr IV Q12H [facility]; Protocol Stop: 10/26/21 17:44 Last Infusion: 10/19/21 06:22 Dose: Infused Amiodarone HCl/Dextrose (Nexterone / D5w) 360 mg in 200 mls @ 16.667 mls/hr IV .Q12H ANNIE Stop: 11/15/21 21:44 Last Admin: 10/19/21 05:03 Dose: 0.5 mg/min, 16.7 mls/hr Insulin Aspart (Insulin Aspart Per Unit) 0 units SC ACHS [facility] Stop: 11/15/21 20:59 Last Admin: 10/19/21 07:47 Dose: Not Given Metoprolol Tartrate (Metoprolol Tartrate 1 Mg/Ml Vial) 5 mg IV Q5M PRN PRN Reason: HR >140, notify provider Stop: 11/15/21 18:32 Last Admin: 10/19/21 01:57 Dose: 5 mg Metoprolol Tartrate (Metoprolol Tartrate 50 Mg Tab) 50 mg PO BID [facility] Stop: 11/16/21 20:59 Last Admin: 10/19/21 07:46 Dose: 50 mg Miscellaneous (Carbohydrates For Hypoglycemia ) 15 - 30 gm PO UD PRN PRN Reason: Hypoglycemia Treatment Stop: 11/15/21 18:14 Polyethylene Glycol (Polyethylene (Miralax) 17 Gm Pack) 17 gm PO DAILY PRN PRN Reason: Constipation Stop: 11/15/21 18:38 PG Care Time/CCT Total # of Minutes Spent Total Time Spent with Patient: Total time spent is greater than 50% in coordination of care (as documented) at patient's floor/unit and/or counseling patient: Coding Level of Care Code 02145 Subseq Hosp Care Lvl 3 Diagnoses Atrial fibrillation with RVR I48.91 Right atrial mass I51.89 Elevated troponin R77.8 Hypoxia R09.02
--- NOTE | 2021-10-19 11:53 | Hospitalist Progress Note ---
Date of Service October 19, 2021 Assessment & Plan (1) Atrial fibrillation with RVR: Plan: New A. fib RVR to the 200s, hypotensive on admission Received 10 mg diltiazem in the field, improved to 170s with improvement in pressure. Received an additional 15 mg with cardioversion, briefly regular, then reverted to A. fib in the 200s. Second 15 mg dose of diltiazem gtt. given, rates improved to 125 and pressures tolerating Maintained on IV amiodarone drip if RVR returns additional bolus of IV amiodarone 150 recommended Heparin GTT started with [id number] 2+ Metoprolol dose limited by blood pressure Abnormal echo Mobile echodense structure within right atrium seen on echo Anticoagulated as noted above Persistent tachycardia. Some discussion whether tachycardia could be from pulmonary embolism. Given the fact that she will be anticoagulated for atrial fibrillation discussion with cardiology felt that in lieu of pursuing contrast CT scan to avoid any acute kidney injury therapeutic anticoagulation may be undertaken initially with a Doac 2. Cardiomegaly with pulmonary edema, small right with [id number] left pleural effusions. 3. Dependent bibasilar consolidation suggestive of probable atelectasis. Pneumonitis could appear similarly 4. Hiatal hernia with mild distal esophageal wall thickening. Procalcitonin 1.36 --> 1.14 Bio fire negative, stool PCR neg CTA/P: Pericholecystic fluid, right upper Gallbladder US: Gallbladder wall edema with no evidence of stones and negative Gutiérrez's sign. Findings are equivocal for acute cholecystitis. I -consider HIDA scan once stable if clinically appropriate СВЕТЛАНА CKD rate related failure with volume depletion and poor p.o. intake for several - QUINCY held Acute hypoxic respiratory failure Initially thought to be due to some rate related failure and pulmonary congestion, with acute end organ dysfunction Troponin elevation High-sensitivity troponin 104 on admit Likely demand ischemia with A. fib RVR Patient is clinically without chest pain/chest pressure at any point. She does not feel her A. fib or have palpitations. New transaminitis AST 112, ALT 122, elevated lactate on admission. Lactate normalized, transaminitis doing to downtrend Suspect an organ ischemia from perfusion in the setting of rapid A. fib DVT prophylaxis: Heparinized_> convert to full dose doac Diet: Heart healthy, DM Disposition: PCU CODE STATUS: Full code (2) Dyslipidemia: (3) Esophageal reflux: (4) Hypertension: (5) Prediabetes: (6) Spinal stenosis, lumbar: Admission and Anticipated Discharge Date Admission Date: October 16, 2021 Subjective pt was in afib this am but was unaware of rapid rate with the exception of alarms for rapid rate. Converted to NSR today continues on amiodarone Has some sinus tachycardia son was at the bedside and updated Review of Systems Review of Systems: Mild distress and significant fatigue no headache, no visual changes no speech or swallowing issues no chest pain, pressure or palpitations Has had some shortness of breath which is improved No nausea vomiting or diarrhea since admitted no dysuria, hematuria or frequency no focal joint pain or swelling no back pain, CVA tenderness or radicular pain no bruising, bleeding or rashes no focal signs of weakness or numbness or altered sensation no complaints of anxiety or depression.. Physical Exam Physical Exam: The patient appeared well nourished and normally developed. Vital signs as documented. Head exam is normocephalic atraumatic Neck is without JVD, thyromegaly, or carotid bruits. Lungs are clear to auscultation, no focal loss of breath sounds no rales Cardiac exam, she is rate controlled in sinus rhythm when examined. Abdominal exam reveals normal bowel sounds, soft non tender, no masses Extremities are nonedematous and both pedal pulses are present Neurologic exam is alert and oriented, no focal loss of strength or sensation Skin is without bruises or rashes Psychologically is without concerns for anxiety or depression.. Results & Data Results & Data ([facility]) Vital Signs (Past 12 Hours) Vital Signs Temp Pulse Pulse Resp BP BP Pulse Ox 10/19/21 11:46 97.9 F 80 16 128/87 96 10/19/21 10:59 10/19/21 07:45 147 H 16 104/82 96 10/19/21 03:58 144 H 10/19/21 03:55 97.9 F 145 H 22 103/80 95 10/19/21 01:57 151 H 119/82 10/19/21 00:00 60 10/19/21 00:00 97.9 F 80 22 119/82 94 10/18/21 23:55 149 H 119/82 O2 Del Method O2 Flow Rate 10/19/21 11:46 Nasal Cannula 3 10/19/21 10:59 Nasal Cannula 3 10/19/21 07:45 Room Air 3 10/19/21 03:58 10/19/21 03:55 Nasal Cannula 5 10/19/21 01:57 10/19/21 00:00 10/19/21 00:00 Nasal Cannula 2 10/18/21 23:55 PG Care Time/CCT Total # of Minutes Spent Total Time Spent with Patient: Total time spent is greater than 50% in coordination of care (as documented) at patient's floor/unit and/or counseling patient: Coding Level of Care Code 05004 Subseq Hosp Care Lvl 3 Diagnoses Atrial fibrillation with RVR I48.91 Dyslipidemia E78.5 Esophageal reflux K21.9 Hypertension I10 Prediabetes R73.03 Spinal stenosis, lumbar M48.061
[2021-10-19] MEDS ORDERED: 0.2 MICRON FILTER SET 1 EACH IV ONE (12:21)
[2021-10-19] MEDS ORDERED: AMIODARONE / D5W 150 MG/100 ML BAG IV STA (12:21)
--- NOTE | 2021-10-19 12:51 | XRay Report ---
XR chest 1V portable CLINICAL HISTORY: Shortness of breath and cough. COMPARISON STUDY: 10/16/[address] chest from 10/16/2021 TECHNIQUE: 1 view of the chest FINDINGS: Single frontal view of the chest demonstrates the heart to again be enlarged. There has been interval development of increased density in the retrocardiac region on the left along with left pleural effu pam. Findings suggest early infiltrate versus atelectasis. Small right pleural effusion and right ba silar atelectasis are also present. These findings were seen on the CT. Follow-up PA and lateral radi ographs are necessary for further evaluation. There is no evidence for vascular congestion. There is no acute osseous pathology. IMPRESSION: 1. Small bilateral pleural effusions, left greater than right and bibasilar atelectasis, left greater than right. 2. Early infiltrate in the retrocardiac region cannot be excluded based on this study. Follow-up PA a nd lateral radiographs are recommended. ACT 112: Negative or not required by law. Electronically signed by: Roc Betancourt M.D. 10/19/2021 12:50 PM
[2021-10-19 15:06] LABS: Babesia microti DNA Not Detected (Not Detected)
[2021-10-20] MEDS: METOPROLOL TARTRATE 1 MG/ML VIAL IV PRN (01:15)
[2021-10-20] MEDS ORDERED: AMIODARONE / D5W 150 MG/100 ML BAG IV STA (01:28)
[2021-10-20] MEDS ORDERED: 0.2 MICRON FILTER SET 1 EACH IV ONE (01:28)
[2021-10-20] MEDS: AMIODARONE / D5W 360 MG/200 ML BAG IV SCH ×2 (04:13→16:53)
[2021-10-20] MEDS: ACETAMINOPHEN 325 MG TAB PO PRN ×2 (04:15→23:31)
[2021-10-20] MEDS: AMPICILLIN/SULBACTAM SOD 3,000 MG in 0.9 % SODIUM CHLORIDE 100 ML IV SCH ×4 (05:45→23:31)
[2021-10-20 06:09] LABS: Basophils # (auto) 0.02 K/uL (0-0.2); Basophils % (auto) 0.2 %; Eosinophils # (auto) 0.02 K/uL (0-0.50); Eosinophils % (auto) 0.2 %; Hematocrit (blood only) 29.3 % (34.1-44.9); Hemoglobin 9.8 g/dl (12.0-16.0); Immature Granulocytes # (auto) 0.09 K/uL (0.00-0.02); Immature Granulocytes % (auto) 0.8 %; Lymphocytes # (auto) 1.35 K/uL (1.2-3.4); Lymphocytes % (auto) 11.9 %; Mean Corpuscular Hemoglobin 30.9 pg (25.0-34.0); Mean Corpuscular Hgb Conc 33.4 g/dL (32.0-36.0); Mean Corpuscular Volume 92.4 fL (80.0-100.0); Mean Platelet Volume 9.3 fL (9.4-12.3); Monocytes % (auto) 9.7 %; Neutrophils # (auto) 8.79 K/uL (1.4-6.5); Neutrophils % (auto) 77.2 %; Platelet Count 306 K/uL (130-400); RDW Coefficient of Variation 14.1 % (11.5-14.5); RDW Standard Deviation 47.8 fL (36.4-46.3); Red Blood Count 3.17 M/uL (3.93-5.22); White Blood Count 11.37 K/ul (4.8-10.8)
[2021-10-20 06:29] LABS: Albumin Level 2.7 gm/dl (3.4-5.0); BUN Creatinine Ratio 21.6 (10-20); Bilirubin,Total 0.3 mg/dl (0.2-1.0); Calcium 7.7 mg/dl (8.5-10.1); Creatinine Clr Calc Pharmacy 30.5 ml/min; Est GFR (African American) 40.9 ml/min; Est GFR (Non-African American) 35.3 ml/min; Globulin 2.7 gm/dl (2.5-4.0); Partial Thromboplastin Ratio 1.5; Partial Thromboplastin Time 42.3 Seconds (21.0-31.0); Potassium 3.5 mmol/L (3.5-5.1); Total Protein 5.4 gm/dl (6.0-8.3)
[2021-10-20] MEDS: HEPARIN SODIUM/DEXTROSE 25,000 UNITS/500 ML BAG IV SCH ×3 (06:41→11:10)
[2021-10-20] MEDS: INSULIN ASPART PER UNIT SC SCH ×4 (07:26→20:59)
--- NOTE | 2021-10-20 07:34 | Hospitalist Progress Note ---
Date of Service October 20, 2021 Assessment & Plan (1) Atrial fibrillation with RVR: Plan: New A. fib RVR to the 200s, hypotensive on admission Maintained on IV amiodarone drip if RVR returns additional bolus of IV amiodarone 150 recommended if remains stable will convert to oral medication Heparin GTT started with [id number] 2+ likely convert to DOAC at time of discharge we will pursue full dose as mentioned below for the consideration of possible right atrial embolism to the lungs creating the nidus for irritation of her atrial fibrillation rapid rate Metoprolol dose limited by blood pressure Abnormal echo Mobile echodense structure within right atrium seen on echo Anticoagulated as noted above Persistent tachycardia. Some discussion whether tachycardia could be from pulmonary embolism. Given the fact that she will be anticoagulated for atrial fibrillation discussion with cardiology felt that in lieu of pursuing contrast CT scan to avoid any acute kidney injury therapeutic anticoagulation may be undertaken initially with a Doac 2. Cardiomegaly with pulmonary edema, small right with [id number] left pleural effusions. 3. Dependent bibasilar consolidation suggestive of probable atelectasis. Pneumonitis could appear similarly 4. Hiatal hernia with mild distal esophageal wall thickening. Procalcitonin 1.36 --> 1.14 With regard to her diarrheabio fire negative, stool PCR neg CTA/P: Pericholecystic fluid, right upper Gallbladder US: Gallbladder wall edema with no evidence of stones and negative Gutiérrez's sign. Findings are equivocal for acute cholecystitis. I Patient did have a signs of acute cholecystitis at this time СВЕТЛАНА CKD rate related failure with volume depletion and poor p.o. intake for several - QUINCY held Acute hypoxic respiratory failure Initially thought to be due to some rate related failure and pulmonary congestion, likely acute diastolic heart failure causing pulmonary edema and then respiratory failure this was treated with diuretics Troponin elevation High-sensitivity troponin 104 on admit Likely demand ischemia with A. fib RVR Patient is clinically without chest pain/chest pressure at any point. She does not feel her A. fib or have palpitations. New transaminitis AST 112, ALT 122, elevated lactate on admission. Lactate normalized, transaminitis doing to downtrend Suspect an organ ischemia from perfusion in the setting of rapid A. fib DVT prophylaxis: Heparinized_> convert to full dose doac Diet: Heart healthy, DM Disposition: PCU CODE STATUS: Full code (2) Dyslipidemia: (3) Esophageal reflux: (4) Hypertension: (5) Prediabetes: (6) Spinal stenosis, lumbar: Admission and Anticipated Discharge Date Admission Date: October 16, 2021 Subjective I visited the patient with her son at bedside. She did relate an event of IV that needed to be changed in middle the night due to pain. She is not in any evidence of a rapid heart rhythm since 1:31 AM on 10/20. We are hopeful that the amiodarone is going to finally begin to suppress her atrial fibrillation. Review of Systems Review of Systems: Mild distress and significant fatigue no headache, no visual changes no speech or swallowing issues no chest pain, pressure or palpitations Has had some shortness of breath which is improved No nausea vomiting or diarrhea since admitted no dysuria, hematuria or frequency no focal joint pain or swelling no back pain, CVA tenderness or radicular pain no bruising, bleeding or rashes no focal signs of weakness or numbness or altered sensation no complaints of anxiety or depression.. Physical Exam Physical Exam: The patient appeared well nourished and normally developed. Vital signs as documented. Head exam is normocephalic atraumatic Neck is without JVD, thyromegaly, or carotid bruits. Lungs are clear to auscultation, no focal loss of breath sounds no rales Cardiac exam, she is rate controlled in sinus rhythm when examined. Abdominal exam reveals normal bowel sounds, soft non tender, no masses Right arm is some superficial irritation where her IV was placed Neurologic exam is alert and oriented, no focal loss of strength or sensation Skin is without bruises or rashes Psychologically is without concerns for anxiety or depression.. Results & Data Results & Data ([facility]) Vital Signs (Past 12 Hours) Vital Signs Temp Pulse Pulse Resp BP BP Pulse Ox 10/20/21 07:28 72 10/20/21 04:31 97.9 F 78 24 120/78 96 10/19/21 22:18 73 10/20/21 02:26 96/70 L 10/20/21 01:31 137 H 126/92 10/20/21 01:15 145 H 105/80 10/19/21 23:21 98.2 F 75 24 116/86 98 10/19/21 20:00 10/19/21 21:18 81 116/76 10/19/21 20:52 85 128/71 10/19/21 20:40 161 H 118/92 10/19/21 19:39 97.9 F 120 H 16 126/92 95 O2 Del Method O2 Flow Rate 10/20/21 07:28 10/20/21 04:31 Nasal Cannula 3 10/19/21 22:18 10/20/21 02:26 10/20/21 01:31 10/20/21 01:15 10/19/21 23:21 Nasal Cannula 3.5 10/19/21 20:00 Nasal Cannula 3 10/19/21 21:18 10/19/21 20:52 10/19/21 20:40 10/19/21 19:39 Nasal Cannula 5 PG Care Time/CCT Total # of Minutes Spent Total Time Spent with Patient: Total time spent is greater than 50% in coordination of care (as documented) at patient's floor/unit and/or counseling patient: Coding Level of Care Code 09030 Subseq Hosp Care Lvl 2 Diagnoses Atrial fibrillation with RVR I48.91 Dyslipidemia E78.5 Esophageal reflux K21.9 Hypertension I10 Prediabetes R73.03 Spinal stenosis, lumbar M48.061
[2021-10-20] MEDS: METOPROLOL TARTRATE 50 MG TAB PO SCH ×2 (08:11→20:59)
[2021-10-20 13:18] LABS: Partial Thromboplastin Ratio 1.8
[2021-10-20 13:40] LABS: Partial Thromboplastin Time 50.2 Seconds (21.0-31.0)
--- NOTE | 2021-10-20 14:57 | Cardiology Progress Note ---
Date of Service October 20, 2021 Assessment & Plan (1) Atrial fibrillation with RVR: (2) Right atrial mass: (3) Elevated troponin: (4) Hypoxia: Plan ASSESSMENT/PLAN: 1. Atrial fibrillation with rapid ventricular response: Less AFib today with her last event being almost 12 hours ago. She received amiodarone bolus 150 mg yesterday early afternoon and then night hospitalist team gave another dose overnight. If further AFib today, would simply monitor at this time and continu e current plan. If continues to have less frequent AFib, will likely convert to oral amiodarone tomorrow. Potential adverse reaction of amiodarone has been discussed. Monitor TSH and transaminase levels. Transaminase levels were elevated prior to amiodarone initiation and have since trended downward. Continue anticoagulation for stroke risk reduction if no contraindication. 2. Right atrial mass: We have discussed finding on echo, with her son present. We discussed potential etiologies such as myxoma, thrombus, or other etiology. If thrombus, would recommend anticoagulation therapy which she is receiving due to AFib. Regardless of etiology, potential for embolic phenomena. If truly a mass, discussed potential for CT surgical involvement for resection. She is not interested in such aggressive measures. Therefore, will not pursue transesophageal echo at this time as it will not likely spinning frame changer. We discussed the fact that BRIAN may allow for better visualization but if not going to spinning frame changer, no BRIAN for now. Can repeat transthoracic echo in the future for surveillance. Both her and her son were in agreement for less aggressive measures. 3. Elevated troponin: Likely due to demand ischemia in the setting of AFib with RVR and overall presentation concerning for infectious process. She did not present with acute coronary syndrome. 4. Hypoxia: She appears hypervolemic and underwent fluid resuscitation initially. Oxygen demand has improved following dose of Lasix earlier this week. Strict I&Os. Also concern for embolic event to the lung such as pulmonary emboli. On anticoagulation therapy and if transition to DOAC, would consider treatment for PE, if not formally evaluated. Oxygen saturation even better today and will likely be able to be further weaned from her supplemental oxygen. 5. Elevated transaminase/acute renal insufficiency/elevated procalcitonin/leukocytosis: As per primary hospitalist service. On antibiotic therapy. Her presenting symptoms of GI complaints and overall weakness, remained while even in sinus rhythm. Fortunately her GI symptoms have improved and she has not had any further diarrhea. Her strength is improving. 6. Disposition: Cardiology will continue to follow along. Patient care communicated with Dr. Rashid of the primary hospitalist service. Admission and Anticipated Discharge Date Admission Date: October 16, 2021 Subjective Patient developed swelling and pain in her right arm overnight and had new IVs placed. Her arm is feeling better and she states that the swelling has improved. She continued to have bouts of AFib with RVR throughout the evening and overnight but converted to sinus rhythm at 3:22 a.m. and has remained in sinus rhythm throughout the day today. She denies palpitations, chest pain, shortness of breath, orthopnea, syncope, near-syncope. She states that overall she is feeling better and was out of bed and felt less weak. She was alone in her hospital room but she placed her son on speaker phone during our conversation. Physical Exam Physical Exam: Gen.: No acute distress. Alert and oriented. HEENT: Anicteric sclera. Neck: No significant JVD appreciated today. Cardiac: No ventricular heave. Regular. Normal S1-S2. No murmurs, rubs, or gallops. Pulmonary: Bibasilar rales, but otherwise clear. Abdomen: Soft, nontender, nondistended, with normoactive bowel sounds. No bruits noted. Extremities: 2+ radial pulses bilaterally. 2+ posterior tibialis pulses bilaterally. Trace bilateral lower extremity edema. No cyanosis. Right upper extremity with 1+ pitting edema distally; nontender. Psychiatric: Affect appears appropriate. Results & Data ([facility]) Vital Signs (Past 12 Hours) Vital Signs Temp Pulse Pulse Resp BP Pulse Ox O2 Del Method 10/20/21 12:10 36.1 C L 74 18 118/96 98 Nasal Cannula 10/20/21 09:52 Nasal Cannula 10/20/21 07:28 72 10/20/21 04:31 36.6 C 78 24 120/78 96 Nasal Cannula O2 Flow Rate 10/20/21 12:10 3 10/20/21 09:52 3 10/20/21 07:28 10/20/21 04:31 3 Intake & Output 10/18/21 10/19/21 10/20/21 10/21/21 06:59 06:59 06:59 06:59 Intake Total 4774.183 / 4774.183 2985.898 / 2985.898 2026.423 / 2026.423 211.117 / 211.117 Output Total 400 / 400 Balance 4768.183 / 4768.183 2984.898 / 2984.898 1626.423 / 1626.423 211.117 / 211.117 Weight 181 lb 3.52 oz 179 lb 10.828 oz 178 lb 2.136 oz Laboratory Results Laboratory Results - last 24 hr 10/16/21 10/19/21 10/19/21 14:36 16:11 20:35 WBC RBC Hgb Hct MCV MCH MCHC RDW Std Deviation RDW Coeff of Akiko Plt Count MPV Immature Gran % (Auto) Neut % (Auto) Lymph % (Auto) [place] % (Auto) Eos % (Auto) Baso % (Auto) Neut # (Auto) Lymph # (Auto) [place] # (Auto) Eos # (Auto) Baso # (Auto) Immature Gran # (Auto) APTT PTT Ratio Sodium Potassium Chloride Carbon Dioxide Anion Gap BUN Creatinine Est Cr Clr Drug Dosing Est GFR ( Amer) Est GFR (Non-Af Amer) BUN/Creatinine Ratio Glucose POC Glucose 119 H 116 H Calcium Total Bilirubin AST ALT Alkaline Phosphatase Total Protein Albumin Globulin Albumin/Globulin Ratio Babesia microti DNA PCR Not Detected 10/20/21 10/20/21 10/20/21 05:55 05:55 05:55 WBC 11.37 H RBC 3.17 L Hgb 9.8 L Hct 29.3 L MCV 92.4 MCH 30.9 MCHC 33.4 RDW Std Deviation 47.8 H RDW Coeff of Akiko 14.1 Plt Count 306 MPV 9.3 L Immature Gran % (Auto) 0.8 Neut % (Auto) 77.2 Lymph % (Auto) 11.9 [place] % (Auto) 9.7 Eos % (Auto) 0.2 Baso % (Auto) 0.2 Neut # (Auto) 8.79 H Lymph # (Auto) 1.35 [place] # (Auto) 1.10 H Eos # (Auto) 0.02 Baso # (Auto) 0.02 Immature Gran # (Auto) 0.09 H APTT 42.3 H PTT Ratio 1.5 Sodium 134 L Potassium 3.5 Chloride 103 Carbon Dioxide 23 Anion Gap 8 BUN 29 H Creatinine 1.34 H Est Cr Clr Drug Dosing 30.5 Est GFR ( Amer) 40.9 Est GFR (Non-Af Amer) 35.3 BUN/Creatinine Ratio 21.6 H Glucose 112 H POC Glucose Calcium 7.7 L Total Bilirubin 0.3 AST 13 ALT 57 H Alkaline Phosphatase 76 Total Protein 5.4 L Albumin 2.7 L Globulin 2.7 Albumin/Globulin Ratio 1.0 Babesia microti DNA PCR 10/20/21 10/20/21 10/20/21 07:23 11:28 12:18 WBC RBC Hgb Hct MCV MCH MCHC RDW Std Deviation RDW Coeff of Akiko Plt Count MPV Immature Gran % (Auto) Neut % (Auto) Lymph % (Auto) [place] % (Auto) Eos % (Auto) Baso % (Auto) Neut # (Auto) Lymph # (Auto) [place] # (Auto) Eos # (Auto) Baso # (Auto) Immature Gran # (Auto) APTT 50.2 H* PTT Ratio 1.8 Sodium Potassium Chloride Carbon Dioxide Anion Gap BUN Creatinine Est Cr Clr Drug Dosing Est GFR ( Amer) Est GFR (Non-Af Amer) BUN/Creatinine Ratio Glucose POC Glucose 100 H 85 Calcium Total Bilirubin AST ALT Alkaline Phosphatase Total Protein Albumin Globulin Albumin/Globulin Ratio Babesia microti DNA PCR Diagnostic Findings Telemetry personally reviewed: AFib converted to sinus rhythm at 3:22 a.m. on 10/20/2021 and has remained in sinus rhythm thus far today. Medications Administered Current Inpatient Medications Acetaminophen (Acetaminophen 325 Mg Tab) 650 mg PO Q4H PRN PRN Reason: Pain or Fever Stop: 11/15/21 18:38 Last Admin: 10/20/21 04:15 Dose: 650 mg Amiodarone HCl (Amiodarone 200 Mg Tab) 200 mg PO BIDM [facility] Stop: 11/17/21 07:59 Last Admin: 10/19/21 07:46 Dose: 200 mg Dextrose (Dextrose 50% 50 Ml Syringe) 25 - 50 ml IV UD PRN; Protocol PRN Reason: Hypoglycemia Protocol Stop: 11/15/21 18:14 Glucagon (Glucagon For Inj 1 Mg Vial) 1 mg SQ UD PRN; Protocol PRN Reason: Hypoglycemia Protocol Stop: 11/15/21 18:14 Glucose (Glucose 40% Gel 15 Gm Tube) 15 - 30 gm PO UD PRN; Protocol PRN Reason: Hypoglycemia Protocol Stop: 11/15/21 18:14 Glucose (Glucose 10 Tab/Tube) 4 - 8 tab PO UD PRN; Protocol PRN Reason: Hypoglycemia Protocol Stop: 11/15/21 18:14 Heparin Sodium/Dextrose (Heparin Sodium/Dextrose) 25,000 units in 500 mls @ 23 mls/hr IV .[id number] ANNIE; Protocol Stop: 11/15/21 15:14 Last Admin: 10/20/21 11:10 Dose: 1,150 units/hr, 23 mls/hr Amiodarone HCl/Dextrose (Nexterone / D5w) 360 mg in 200 mls @ 16.667 mls/hr IV .Q12H [facility] Stop: 11/15/21 21:44 Last Admin: 10/20/21 04:13 Dose: 0.5 mg/min, 16.7 mls/hr Ampicillin Sodium/Sulbactam Sodium 3,000 mg/ Sodium Chloride 108 mls @ 200 mls/hr IV Q6H [facility]; Protocol Stop: 10/26/21 17:44 Last Infusion: 10/20/21 12:55 Dose: Infused Insulin Aspart (Insulin Aspart Per Unit) 0 units SC ACHS [facility] Stop: 11/15/21 20:59 Last Admin: 10/20/21 11:37 Dose: Not Given Metoprolol Tartrate (Metoprolol Tartrate 1 Mg/Ml Vial) 5 mg IV Q5M PRN PRN Reason: HR >140, notify provider Stop: 11/15/21 18:32 Last Admin: 10/20/21 01:15 Dose: 5 mg Metoprolol Tartrate (Metoprolol Tartrate 50 Mg Tab) 50 mg PO BID [facility] Stop: 11/16/21 20:59 Last Admin: 10/20/21 08:11 Dose: 50 mg Miscellaneous (Carbohydrates For Hypoglycemia ) 15 - 30 gm PO UD PRN PRN Reason: Hypoglycemia Treatment Stop: 11/15/21 18:14 Polyethylene Glycol (Polyethylene (Miralax) 17 Gm Pack) 17 gm PO DAILY PRN PRN Reason: Constipation Stop: 11/15/21 18:38 PG Care Time/CCT Total # of Minutes Spent Total Time Spent with Patient: Total time spent is greater than 50% in coordination of care (as documented) at patient's floor/unit and/or counseling patient: Coding Level of Care Code 84416 Subseq Hosp Care Lvl 3 Diagnoses Atrial fibrillation with RVR I48.91 Right atrial mass I51.89 Elevated troponin R77.8 Hypoxia R09.02
[2021-10-21] MEDS: AMPICILLIN/SULBACTAM SOD 3,000 MG in 0.9 % SODIUM CHLORIDE 100 ML IV SCH ×4 (05:23→23:07)
[2021-10-21] MEDS: AMIODARONE / D5W 360 MG/200 ML BAG IV SCH ×2 (05:56→16:56)
[2021-10-21] MEDS: INSULIN ASPART PER UNIT SC SCH ×4 (07:49→21:59)
[2021-10-21 08:13] LABS: Hematocrit (blood only) 31.3 % (34.1-44.9); Hemoglobin 10.6 g/dl (12.0-16.0); Mean Corpuscular Hemoglobin 30.7 pg (25.0-34.0); Mean Corpuscular Hgb Conc 33.9 g/dL (32.0-36.0); Mean Corpuscular Volume 90.7 fL (80.0-100.0); Mean Platelet Volume 9.1 fL (9.4-12.3); Platelet Count 379 K/uL (130-400); RDW Coefficient of Variation 14.1 % (11.5-14.5); RDW Standard Deviation 46.7 fL (36.4-46.3); Red Blood Count 3.45 M/uL (3.93-5.22); White Blood Count 11.88 K/ul (4.8-10.8)
[2021-10-21] MEDS: METOPROLOL TARTRATE 50 MG TAB PO SCH ×2 (08:26→20:41)
[2021-10-21 08:37] LABS: Albumin Globulin Ratio 0.9 (0.9-2); Albumin Level 2.7 gm/dl (3.4-5.0); BUN Creatinine Ratio 18.5 (10-20); Bilirubin,Total 0.4 mg/dl (0.2-1.0); Calcium 7.8 mg/dl (8.5-10.1); Creatinine Clr Calc Pharmacy 33.2 ml/min; Est GFR (African American) 44.9 ml/min; Est GFR (Non-African American) 38.8 ml/min; Globulin 2.9 gm/dl (2.5-4.0); Potassium 3.2 mmol/L (3.5-5.1); Total Protein 5.6 gm/dl (6.0-8.3)
[2021-10-21 08:43] LABS: Partial Thromboplastin Ratio 2.7
[2021-10-21 09:05] LABS: Partial Thromboplastin Time 73.1 Seconds (21.0-31.0)
[2021-10-21] MEDS: HEPARIN SODIUM/DEXTROSE 25,000 UNITS/500 ML BAG IV SCH (09:10)
[2021-10-21] MEDS ORDERED: POTASSIUM CHLORIDE 10 MEQ / 100ML WTR IV STA (10:46)
[2021-10-21] MEDS ORDERED: MAGNESIUM SULFATE / D5W 1 GM/100 ML BAG IV ONE (10:46)
[2021-10-21] MEDS: POTASSIUM CHLORIDE / WTR 10 MEQ/100 ML PLCT IV SCH ×3 (11:30→14:23)
[2021-10-21] MEDS ORDERED: POTASSIUM CHLORIDE 20 MEQ/15 ML UDC PO STA (13:56)
[2021-10-21] MEDS ORDERED: FUROSEMIDE 40 MG TAB PO ONE (14:15)
[2021-10-21 16:05] LABS: Partial Thromboplastin Time 27.6 Seconds (21.0-31.0)
--- NOTE | 2021-10-21 16:16 | Cardiology Progress Note ---
Date of Service October 21, 2021 Assessment & Plan (1) Atrial fibrillation with RVR: (2) Right atrial mass: (3) Elevated troponin: (4) Hypoxia: Plan ASSESSMENT/PLAN: 1. Atrial fibrillation with rapid ventricular response: AFib burden has significantly improved has loading of amiodarone continues. Will discontinue amiodarone drip tonight and start amiodarone 400 mg p.o. b.i.d. for an additional 4 days and then 200 mg p.o. b.i.d.. Potential adverse reaction of amiodarone has been discussed. Monitor TSH and transaminase levels. Transaminase levels were elevated prior to amiodarone initiation and have since normalized. Continue anticoagulation for stroke risk reduction if no contraindication. 2. Right atrial mass: We have discussed finding on echo, with her son present. We discussed potential etiologies such as myxoma, thrombus, or other etiology. If thrombus, would recommend anticoagulation therapy which she is receiving due to AFib. Regardless of etiology, potential for embolic phenomena. If truly a mass, discussed potential for CT surgical involvement for resection. She is not interested in such aggressive measures. Therefore, will not pursue transesophageal echo at this time as it will not likely twisting frame changer. We discussed the fact that BRIAN may allow for better visualization but if not going to twisting frame changer, no BRIAN for now. Will repeat limited echo tomorrow. Both her and her son were in agreement for less aggressive measures. 3. Elevated troponin: Likely due to demand ischemia in the setting of AFib with RVR and overall presentation concerning for infectious process. She did not present with acute coronary syndrome. 4. Hypoxia: She appears hypervolemic and underwent fluid resuscitation initially. Oxygen demand has improved following dose of Lasix earlier this week. Now on room air but appears more hypervolemic. Strict I&Os. Will give a dose of Lasix 40 mg IV daily. She has not been on diuretic on a regular basis but typically takes HCTZ as an outpatient. Can replace HCTZ with Lasix 20 mg p.o. once daily on discharge. 5. Elevated transaminase/acute renal insufficiency/elevated procalcitonin/leukocytosis: As per primary hospitalist service. On antibiotic therapy. Her presenting symptoms of GI complaints and overall weakness, remained while even in sinus rhythm. Fortunately her GI symptoms have improved and she has not had any further diarrhea. Her strength is improving. 6. Disposition: I will be away from the hospital for the next few days. Dr. Tan will be available for questions or concerns. If okay otherwise with hospitalist service, would be okay for discharge from a Cardiology perspective if her volume status seems reasonable given that her AFib has significantly improved. Patient care communicated with Dr. Rashid of the primary hospitalist service. Admission and Anticipated Discharge Date Admission Date: October 16, 2021 Subjective She is feeling better overall. She denies orthopnea, chest pain, shortness of breath, palpitations, syncope. She has noted however that her legs have become swollen. Her appetite has improved. She was alone in her hospital room. Physical Exam Physical Exam: Gen.: No acute distress. Alert and oriented. HEENT: Anicteric sclera. Neck: JVD to the mandible sitting upright. Cardiac: No ventricular heave. Regular. Normal S1-S2. No murmurs, rubs, or gallops. Pulmonary: Bibasilar rales, but otherwise clear. Abdomen: Soft, nontender, nondistended, with normoactive bowel sounds. No bruits noted. Extremities: 2+ radial pulses bilaterally. 2+ posterior tibialis pulses bilaterally. 1+ bilateral lower extremity edema. No cyanosis. Right upper extremity with 1+ pitting edema distally; nontender. Psychiatric: Affect appears appropriate. Results & Data ([facility]) Vital Signs (Past 12 Hours) Vital Signs Temp Pulse Resp BP Pulse Ox O2 Del Method O2 Flow Rate 10/21/21 12:00 36.8 C 78 18 158/74 H 97 Room Air 10/21/21 15:54 36.6 C 82 18 167/84 H 97 Room Air 10/21/21 09:34 Nasal Cannula 2 10/21/21 07:07 36.3 C L 76 17 152/66 H 96 Nasal Cannula 3 Intake & Output 10/19/21 10/20/21 10/21/21 10/22/21 06:59 06:59 06:59 06:59 Intake Total 2985.898 / 2985.898 2026.423 / 6.423 1495.117 / 1495.117 900 / 900 Output Total 400 / 400 350 / 350 Balance 2984.898 / 2984.898 1626.423 / 5888.966 4204.117 / 1495.117 550 / 550 Weight 179 lb 10.828 oz 178 lb 2.136 oz 180 lb 8.937 oz 180 lb 8.937 oz Laboratory Results Laboratory Results - last 24 hr 10/16/21 10/20/21 10/21/21 14:36 20:18 07:25 WBC RBC Hgb Hct MCV MCH MCHC RDW Std Deviation RDW Coeff of Akiko Plt Count MPV APTT PTT Ratio Sodium Potassium Chloride Carbon Dioxide Anion Gap BUN Creatinine Est Cr Clr Drug Dosing Est GFR ( Amer) Est GFR (Non-Af Amer) BUN/Creatinine Ratio Glucose POC Glucose 184 H 96 Calcium Total Bilirubin AST ALT Alkaline Phosphatase Total Protein Albumin Globulin Albumin/Globulin Ratio A. phagocytophilum DNA Negative 10/21/21 10/21/21 10/21/21 08:04 08:04 08:04 WBC 11.88 H RBC 3.45 L Hgb 10.6 L Hct 31.3 L MCV 90.7 MCH 30.7 MCHC 33.9 RDW Std Deviation 46.7 H RDW Coeff of Akiko 14.1 Plt Count 379 MPV 9.1 L APTT 73.1 H* PTT Ratio 2.7 Sodium 139 Potassium 3.2 L Chloride 106 Carbon Dioxide 24 Anion Gap 9 BUN 23 Creatinine 1.24 H Est Cr Clr Drug Dosing 33.2 Est GFR ( Amer) 44.9 Est GFR (Non-Af Amer) 38.8 BUN/Creatinine Ratio 18.5 Glucose 106 H POC Glucose Calcium 7.8 L Total Bilirubin 0.4 AST 13 ALT 40 Alkaline Phosphatase 68 Total Protein 5.6 L Albumin 2.7 L Globulin 2.9 Albumin/Globulin Ratio 0.9 A. phagocytophilum DNA 10/21/21 10/21/21 10/21/21 11:21 15:33 16:00 WBC RBC Hgb Hct MCV MCH MCHC RDW Std Deviation RDW Coeff of Akiko Plt Count MPV APTT 27.6 PTT Ratio 1.0 Sodium Potassium Chloride Carbon Dioxide Anion Gap BUN Creatinine Est Cr Clr Drug Dosing Est GFR ( Amer) Est GFR (Non-Af Amer) BUN/Creatinine Ratio Glucose POC Glucose 97 154 H Calcium Total Bilirubin AST ALT Alkaline Phosphatase Total Protein Albumin Globulin Albumin/Globulin Ratio A. phagocytophilum DNA Diagnostic Findings Telemetry personally reviewed: Had 1 episode of AFib with RVR for approximately 7:53 a.m. today to 9:18 a.m.. This was her first episode in > 24 hours. She otherwise has been in sinus rhythm. Medications Administered Current Inpatient Medications Acetaminophen (Acetaminophen 325 Mg Tab) 650 mg PO Q4H PRN PRN Reason: Pain or Fever Stop: 11/15/21 18:38 Last Admin: 10/20/21 23:31 Dose: 650 mg Amiodarone HCl (Amiodarone 200 Mg Tab) 200 mg PO BIDM [facility] Stop: 11/17/21 07:59 Last Admin: 10/19/21 07:46 Dose: 200 mg Dextrose (Dextrose 50% 50 Ml Syringe) 25 - 50 ml IV UD PRN; Protocol PRN Reason: Hypoglycemia Protocol Stop: 11/15/21 18:14 Glucagon (Glucagon For Inj 1 Mg Vial) 1 mg SQ UD PRN; Protocol PRN Reason: Hypoglycemia Protocol Stop: 11/15/21 18:14 Glucose (Glucose 40% Gel 15 Gm Tube) 15 - 30 gm PO UD PRN; Protocol PRN Reason: Hypoglycemia Protocol Stop: 11/15/21 18:14 Glucose (Glucose 10 Tab/Tube) 4 - 8 tab PO UD PRN; Protocol PRN Reason: Hypoglycemia Protocol Stop: 11/15/21 18:14 Heparin Sodium (Porcine) (Heparin Sod (Porcine) 1000 Unit/Ml) 5,000 units IV NOW ONE Stop: 10/21/21 16:31 Heparin Sodium/Dextrose (Heparin Sodium/Dextrose) 25,000 units in 500 mls @ 22 mls/hr IV .[id number] [facility]; Protocol Stop: 11/15/21 15:14 Last Admin: 10/21/21 09:10 Dose: 1,100 units/hr, 22 mls/hr Amiodarone HCl/Dextrose (Nexterone / D5w) 360 mg in 200 mls @ 16.667 mls/hr IV .Q12H [facility] Stop: 11/15/21 21:44 Last Admin: 10/21/21 05:56 Dose: 0.5 mg/min, 16.7 mls/hr Ampicillin Sodium/Sulbactam Sodium 3,000 mg/ Sodium Chloride 108 mls @ 200 mls/hr IV Q6H [facility]; Protocol Stop: 10/26/21 17:44 Last Admin: 10/21/21 15:24 Dose: 200 mls/hr Insulin Aspart (Insulin Aspart Per Unit) 0 units SC ACHS [facility] Stop: 11/15/21 20:59 Last Admin: 10/21/21 11:31 Dose: Not Given Metoprolol Tartrate (Metoprolol Tartrate 1 Mg/Ml Vial) 5 mg IV Q5M PRN PRN Reason: HR >140, notify provider Stop: 11/15/21 18:32 Last Admin: 10/20/21 01:15 Dose: 5 mg Metoprolol Tartrate (Metoprolol Tartrate 50 Mg Tab) 50 mg PO BID [facility] Stop: 11/16/21 20:59 Last Admin: 10/21/21 08:26 Dose: 50 mg Miscellaneous (Carbohydrates For Hypoglycemia ) 15 - 30 gm PO UD PRN PRN Reason: Hypoglycemia Treatment Stop: 11/15/21 18:14 Polyethylene Glycol (Polyethylene (Miralax) 17 Gm Pack) 17 gm PO DAILY PRN PRN Reason: Constipation Stop: 11/15/21 18:38 PG Care Time/CCT Total # of Minutes Spent Total Time Spent with Patient: Total time spent is greater than 50% in coordination of care (as documented) at patient's floor/unit and/or counseling patient: Coding Level of Care Code 92061 Subseq Hosp Care Lvl 3 Diagnoses Atrial fibrillation with RVR I48.91 Right atrial mass I51.89 Elevated troponin R77.8 Hypoxia R09.02
[2021-10-21] MEDS ORDERED: HEPARIN SOD (PORCINE) 1000 UNIT/ML IV ONE (16:30)
[2021-10-21] MEDS: AMIODARONE 200 MG TAB PO SCH (16:58)
--- NOTE | 2021-10-21 19:23 | Hospitalist Progress Note ---
Date of Service October 21, 2021 Assessment & Plan (1) Atrial fibrillation with RVR: Plan: New A. fib RVR to the 200s, hypotensive on admission Maintained on IV amiodarone drip if RVR returns additional bolus of IV amiodarone 150 recommended if remains stable will convert to oral medication Heparin GTT started with [id number] 2+ likely convert to DOAC at time of discharge we will pursue full dose as mentioned below for the consideration of possible right atrial embolism to the lungs creating the nidus for irritation of her atrial fibrillation rapid rate will convert heparin drip to Eliquis twice daily Metoprolol dose limited by blood pressure Abnormal echo Mobile echodense structure within right atrium seen on echo Anticoagulated as noted above Persistent tachycardia. Some discussion whether tachycardia could be from pulmonary embolism. Given the fact that she will be anticoagulated for atrial fibrillation discussion with cardiology felt that in lieu of pursuing contrast CT scan to avoid any acute kidney injury therapeutic anticoagulation may be undertaken initially with a Doac 2. Cardiomegaly with pulmonary edema, small right with [id number] left pleural effusions. 3. Dependent bibasilar consolidation suggestive of probable atelectasis. Pneumonitis could appear similarly 4. Hiatal hernia with mild distal esophageal wall thickening. Procalcitonin 1.36 --> 1.14 With regard to her diarrheabio fire negative, stool PCR neg CTA/P: Pericholecystic fluid, right upper Gallbladder US: Gallbladder wall edema with no evidence of stones and negative Gutiérrez's sign. Findings are equivocal for acute cholecystitis. I Patient did have a signs of acute cholecystitis at this time СВЕТЛАНА CKD rate related failure with volume depletion and poor p.o. intake for several - QUINCY held Acute hypoxic respiratory failure Initially thought to be due to some rate related failure and pulmonary congestion, likely acute diastolic heart failure causing pulmonary edema and then respiratory failure this was treated with diuretics Troponin elevation High-sensitivity troponin 104 on admit Likely demand ischemia with A. fib RVR Patient is clinically without chest pain/chest pressure at any point. She does not feel her A. fib or have palpitations. New transaminitis AST 112, ALT 122, elevated lactate on admission. Lactate normalized, transaminitis doing to downtrend Suspect an organ ischemia from perfusion in the setting of rapid A. fib DVT prophylaxis: Heparinized_> convert to full dose doac Diet: Heart healthy, DM Disposition: PCU CODE STATUS: Full code (2) Dyslipidemia: (3) Esophageal reflux: (4) Hypertension: (5) Prediabetes: (6) Spinal stenosis, lumbar: Admission and Anticipated Discharge Date Admission Date: October 16, 2021 Subjective She is feeling better overall. She denies orthopnea, chest pain, shortness of breath, palpitations, syncope. She has noted however that her legs have become swollen. Her appetite has improved. Patient had episode of A. fib once again. Her electrolytes were low and her repleted son was at bedside and updated Review of Systems Review of Systems: Mild distress and significant fatigue no headache, no visual changes no speech or swallowing issues no chest pain, pressure or palpitations Has had some shortness of breath which is improved No nausea vomiting or diarrhea since admitted no dysuria, hematuria or frequency no focal joint pain or swelling no back pain, CVA tenderness or radicular pain no bruising, bleeding or rashes no focal signs of weakness or numbness or altered sensation no complaints of anxiety or depression.. Physical Exam Physical Exam: The patient appeared well nourished and normally developed. Vital signs as documented. Head exam is normocephalic atraumatic Neck is without JVD, thyromegaly, or carotid bruits. Lungs are clear to auscultation, no focal loss of breath sounds no rales Cardiac exam, she is rate controlled in sinus rhythm when examined. Abdominal exam reveals normal bowel sounds, soft non tender, no masses Right arm is some superficial irritation where her IV was placed Neurologic exam is alert and oriented, no focal loss of strength or sensation Skin is without bruises or rashes Psychologically is without concerns for anxiety or depression.. Results & Data Results & Data ([facility]) Vital Signs (Past 12 Hours) Vital Signs Temp Pulse Pulse Resp BP Pulse Ox O2 Del Method 10/21/21 19:11 97.5 F L 85 18 137/79 91 Room Air 10/21/21 18:23 79 10/21/21 12:00 98.2 F 78 18 158/74 H 97 Room Air 10/21/21 15:54 97.9 F 82 18 167/84 H 97 Room Air 10/21/21 09:34 Nasal Cannula O2 Flow Rate 10/21/21 19:11 10/21/21 18:23 10/21/21 12:00 10/21/21 15:54 10/21/21 09:34 2 PG Care Time/CCT Total # of Minutes Spent Total Time Spent with Patient: Total time spent is greater than 50% in coordination of care (as documented) at patient's floor/unit and/or counseling patient: Coding Level of Care Code 73642 Subseq Hosp Care Lvl 2 Diagnoses Atrial fibrillation with RVR I48.91 Dyslipidemia E78.5 Esophageal reflux K21.9 Hypertension I10 Prediabetes R73.03 Spinal stenosis, lumbar M48.061
[2021-10-21] MEDS: APIXABAN 5 MG TABLET PO SCH (20:41)
[2021-10-22] MEDS: HEPARIN SODIUM/DEXTROSE 25,000 UNITS/500 ML BAG IV SCH (00:16)
[2021-10-22] MEDS: AMPICILLIN/SULBACTAM SOD 3,000 MG in 0.9 % SODIUM CHLORIDE 100 ML IV SCH ×2 (05:34→12:10)
--- NOTE | 2021-10-22 06:22 | Electrocardiogram Report ---
Test Reason : Blood Pressure : / mmHG Vent. Rate : 141 BPM Atrial Rate : 108 BPM P-R Int : 000 ms QRS Dur : 060 ms QT Int : 282 ms P-R-T Axes : 000 -07 176 degrees QTc Int : 431 ms Poor data quality, interpretation may be adversely affected Atrial fibrillation with rapid ventricular response Low voltage QRS Cannot rule out Anterior infarct , age undetermined Abnormal ECG When compared with ECG of 17-OCT-2021 05:25, Atrial fibrillation has replaced Sinus rhythm Vent. rate has increased BY 61 BPM Confirmed by Wing Miller ([id number]) on 10/22/2021 6:22:44 AM Referred By: REFERRED SELF Confirmed By:Wing Miller
[2021-10-22] MEDS: INSULIN ASPART PER UNIT SC SCH ×4 (07:22→21:34)
[2021-10-22] MEDS: APIXABAN 5 MG TABLET PO SCH ×2 (08:37→20:14)
[2021-10-22] MEDS: METOPROLOL TARTRATE 50 MG TAB PO SCH ×2 (08:37→20:14)
[2021-10-22] MEDS: AMIODARONE 200 MG TAB PO SCH ×2 (08:37→16:40)
[2021-10-22 09:12] LABS: BUN Creatinine Ratio 16.9 (10-20); Calcium 8.4 mg/dl (8.5-10.1); Creatinine Clr Calc Pharmacy 31.5 ml/min; Est GFR (African American) 42.4 ml/min; Est GFR (Non-African American) 36.6 ml/min; Magnesium 1.7 mg/dl (1.7-2.4); Potassium 3.4 mmol/L (3.5-5.1)
--- NOTE | 2021-10-22 10:29 | XCELERA ---
[id number] \\[id number]
--- NOTE | 2021-10-22 16:51 | Hospitalist Progress Note ---
Date of Service October 22, 2021 Assessment & Plan (1) Atrial fibrillation with RVR: Plan: New A. fib RVR to the 200s, hypotensive on admission transitioned to oral amiodarone 400mg bid continue electrolyte repletion Heparin GTT started with [id number] 2+ likely convert to DOAC at time of discharge we will pursue full dose as mentioned below for the consideration of possible right atrial embolism to the lungs creating the nidus for irritation of her atrial fibrillation rapid rate will convert heparin drip to Eliquis twice daily Metoprolol dose limited by blood pressure Abnormal echo Mobile echodense structure within right atrium seen on echo Anticoagulated as noted above Persistent tachycardia. Some discussion whether tachycardia could be from pulmonary embolism. Given the fact that she will be anticoagulated for atrial fibrillation discussion with cardiology felt that in lieu of pursuing contrast CT scan to avoid any acute kidney injury therapeutic anticoagulation may be undertaken initially with a Doac wet read on repeat echo may not see the mass that was previously described, will await formal read 2. Cardiomegaly with pulmonary edema, small right with [id number] left pleural effusions. 3. Dependent bibasilar consolidation suggestive of probable atelectasis. Pneumonitis could appear similarly 4. Hiatal hernia with mild distal esophageal wall thickening. Procalcitonin 1.36 --> 1.14 With regard to her diarrheabio fire negative, stool PCR neg CTA/P: Pericholecystic fluid, right upper Gallbladder US: Gallbladder wall edema with no evidence of stones and negative Gutiérrez's sign. Findings are equivocal for acute cholecystitis. I Patient did have a signs of acute cholecystitis at this time, will stop antibioitcs at this time СВЕТЛАНА CKD rate related failure with volume depletion and poor p.o. intake for several - QUINCY held Acute hypoxic respiratory failure Initially thought to be due to some rate related failure and pulmonary congestion, likely acute diastolic heart failure causing pulmonary edema and then respiratory failure this was treated with diuretics Troponin elevation High-sensitivity troponin 104 on admit Likely demand ischemia with A. fib RVR Patient is clinically without chest pain/chest pressure at any point. She does not feel her A. fib or have palpitations. New transaminitis AST 112, ALT 122, elevated lactate on admission. Lactate normalized, transaminitis doing to downtrend Suspect an organ ischemia from perfusion in the setting of rapid A. fib DVT prophylaxis: Heparinized_> convert to full dose doac Diet: Heart healthy, DM Disposition: PCU CODE STATUS: Full code (2) Dyslipidemia: (3) Esophageal reflux: (4) Hypertension: (5) Prediabetes: (6) Spinal stenosis, lumbar: Admission and Anticipated Discharge Date Admission Date: October 16, 2021 Subjective She is feeling better overall. She denies orthopnea, chest pain, shortness of breath, palpitations, syncope. Leg swelling has improved with lasix. Her appetite has improved. Patient had episode of A. fib once again. Her electrolytes were low and her repleted son was at bedside and updated will need to have authorization for move to SNF for short term Review of Systems Review of Systems: Mild distress and significant fatigue no headache, no visual changes no speech or swallowing issues no chest pain, pressure or palpitations Has had some shortness of breath which is improved No nausea vomiting or diarrhea since admitted no dysuria, hematuria or frequency no focal joint pain or swelling no back pain, CVA tenderness or radicular pain no bruising, bleeding or rashes no focal signs of weakness or numbness or altered sensation no complaints of anxiety or depression.. Physical Exam Physical Exam: The patient appeared well nourished and normally developed. Vital signs as documented. Head exam is normocephalic atraumatic Neck is without JVD, thyromegaly, or carotid bruits. Lungs are clear to auscultation, no focal loss of breath sounds no rales Cardiac exam, she is rate controlled in sinus rhythm when examined. Abdominal exam reveals normal bowel sounds, soft non tender, no masses Right arm is some superficial irritation where her IV was placed Neurologic exam is alert and oriented, no focal loss of strength or sensation Skin is without bruises or rashes Psychologically is without concerns for anxiety or depression.. Results & Data Results & Data ([facility]) Vital Signs (Past 12 Hours) Vital Signs Temp Pulse Pulse Resp BP Pulse Ox O2 Del Method 10/22/21 15:31 98.2 F 85 18 150/83 H 98 Room Air 10/22/21 15:24 82 10/22/21 11:25 98.2 F 81 16 159/88 H 98 Room Air 10/22/21 08:43 79 10/22/21 07:19 97.5 F L 87 18 133/80 92 Room Air PG Care Time/CCT Total # of Minutes Spent Total Time Spent with Patient: Total time spent is greater than 50% in coordination of care (as documented) at patient's floor/unit and/or counseling patient: Coding Level of Care Code 70911 Subseq Hosp Care Lvl 2 Diagnoses Atrial fibrillation with RVR I48.91 Dyslipidemia E78.5 Esophageal reflux K21.9 Hypertension I10 Prediabetes R73.03 Spinal stenosis, lumbar M48.061
[2021-10-23] MEDS: INSULIN ASPART PER UNIT SC SCH ×4 (07:18→20:08)
[2021-10-23] MEDS ORDERED: POTASSIUM CHLORIDE CRTAB 20 MEQ TABCR PO STA (07:37)
[2021-10-23] MEDS: APIXABAN 5 MG TABLET PO SCH ×2 (08:35→20:21)
[2021-10-23] MEDS: METOPROLOL TARTRATE 50 MG TAB PO SCH ×2 (08:35→20:21)
[2021-10-23] MEDS: MAGNESIUM OXIDE 400 MG TAB PO SCH (08:35)
[2021-10-23] MEDS: POTASSIUM CHLORIDE CRTAB 20 MEQ TABCR PO SCH (08:35)
[2021-10-23] MEDS: AMIODARONE 200 MG TAB PO SCH ×2 (08:35→16:59)
[2021-10-23] MEDS: ACETAMINOPHEN 325 MG TAB PO PRN (08:37)
[2021-10-23] MEDS ORDERED: POLYETHYLENE (MIRALAX) 17 GM PACK PO ONE (10:19)
--- NOTE | 2021-10-23 14:14 | Hospitalist Progress Note ---
Date of Service October 23, 2021 Assessment & Plan (1) Atrial fibrillation with RVR: Plan: New A. fib RVR to the 200s, hypotensive on admission transitioned to oral amiodarone 400mg bid continue electrolyte repletion Heparin GTT started with [id number] 2+ likely convert to DOAC at time of discharge we will pursue full dose as mentioned below for the consideration of possible right atrial embolism to the lungs creating the nidus for irritation of her atrial fibrillation rapid rate will convert heparin drip to Eliquis twice daily Metoprolol dose limited by blood pressure Abnormal echo Mobile echodense structure within right atrium seen on echo Anticoagulated as noted above Persistent tachycardia. Some discussion whether tachycardia could be from pulmonary embolism. Given the fact that she will be anticoagulated for atrial fibrillation discussion with cardiology felt that in lieu of pursuing contrast CT scan to avoid any acute kidney injury therapeutic anticoagulation may be undertaken initially with a Doac wet read on repeat echo may not see the mass that was previously described, will await formal read 2. Cardiomegaly with pulmonary edema, small right with [id number] left pleural effusions. 3. Dependent bibasilar consolidation suggestive of probable atelectasis. Pneumonitis could appear similarly 4. Hiatal hernia with mild distal esophageal wall thickening. Procalcitonin 1.36 --> 1.14 With regard to her diarrheabio fire negative, stool PCR neg CTA/P: Pericholecystic fluid, right upper Gallbladder US: Gallbladder wall edema with no evidence of stones and negative Gutiérrez's sign. Findings are equivocal for acute cholecystitis. I Patient did have a signs of acute cholecystitis at this time, will stop antibioitcs at this time СВЕТЛАНА CKD rate related failure with volume depletion and poor p.o. intake for several - QUINCY held Acute hypoxic respiratory failure Initially thought to be due to some rate related failure and pulmonary congestion, likely acute diastolic heart failure causing pulmonary edema and then respiratory failure this was treated with diuretics Troponin elevation High-sensitivity troponin 104 on admit Likely demand ischemia with A. fib RVR Patient is clinically without chest pain/chest pressure at any point. She does not feel her A. fib or have palpitations. New transaminitis AST 112, ALT 122, elevated lactate on admission. Lactate normalized, transaminitis doing to downtrend Suspect an organ ischemia from perfusion in the setting of rapid A. fib DVT prophylaxis: Heparinized_> convert to full dose doac Diet: Heart healthy, DM Disposition: PCU CODE STATUS: Full code (2) Dyslipidemia: (3) Esophageal reflux: (4) Hypertension: (5) Prediabetes: (6) Spinal stenosis, lumbar: Admission and Anticipated Discharge Date Admission Date: October 16, 2021 Subjective She is feeling better overall. She denies orthopnea, chest pain, shortness of breath, palpitations, syncope. Leg swelling has improved with lasix. Her appetite has improved. Patient had episode of A. fib once again. Her electrolytes were low and her repleted son was at bedside and updated will need to have authorization for move to SNF for short term Review of Systems Review of Systems: Mild distress and significant fatigue no headache, no visual changes no speech or swallowing issues no chest pain, pressure or palpitations Has had some shortness of breath which is improved No nausea vomiting or diarrhea since admitted no dysuria, hematuria or frequency no focal joint pain or swelling no back pain, CVA tenderness or radicular pain no bruising, bleeding or rashes no focal signs of weakness or numbness or altered sensation no complaints of anxiety or depression.. Physical Exam Physical Exam: The patient appeared well nourished and normally developed. Vital signs as documented. Head exam is normocephalic atraumatic Neck is without JVD, thyromegaly, or carotid bruits. Lungs are clear to auscultation, no focal loss of breath sounds no rales Cardiac exam, she is rate controlled in sinus rhythm when examined. Abdominal exam reveals normal bowel sounds, soft non tender, no masses Right arm is some superficial irritation where her IV was placed Neurologic exam is alert and oriented, no focal loss of strength or sensation Skin is without bruises or rashes Psychologically is without concerns for anxiety or depression.. Results & Data Results & Data ([facility]) Vital Signs (Past 12 Hours) Vital Signs Temp Pulse Pulse Resp BP Pulse Ox O2 Del Method 10/23/21 12:04 97.7 F 63 17 129/70 94 Room Air 10/23/21 08:52 98.2 F 87 20 130/72 90 Room Air 10/23/21 08:07 75 10/23/21 03:14 98.2 F 77 18 136/73 91 Room Air PG Care Time/CCT Total # of Minutes Spent Total Time Spent with Patient: Total time spent is greater than 50% in coordination of care (as documented) at patient's floor/unit and/or counseling patient: Coding Level of Care Code 81938 Subseq Hosp Care Lvl 2 Diagnoses Atrial fibrillation with RVR I48.91 Dyslipidemia E78.5 Esophageal reflux K21.9 Hypertension I10 Prediabetes R73.03 Spinal stenosis, lumbar M48.061
[2021-10-24] MEDS: INSULIN ASPART PER UNIT SC SCH ×4 (08:34→20:47)
[2021-10-24] MEDS: MAGNESIUM OXIDE 400 MG TAB PO SCH (09:03)
[2021-10-24] MEDS: METOPROLOL TARTRATE 50 MG TAB PO SCH ×2 (09:03→20:21)
[2021-10-24] MEDS: AMIODARONE 200 MG TAB PO SCH ×2 (09:03→16:42)
[2021-10-24] MEDS: POTASSIUM CHLORIDE CRTAB 20 MEQ TABCR PO SCH (09:07)
[2021-10-24] MEDS: POLYETHYLENE (MIRALAX) 17 GM PACK PO SCH (09:07)
[2021-10-24] MEDS: APIXABAN 5 MG TABLET PO SCH (09:09)
[2021-10-24 09:15] LABS: Hemoglobin 8.8 g/dl (12.0-16.0); Mean Corpuscular Hemoglobin 30.6 pg (25.0-34.0); Mean Corpuscular Hgb Conc 32.6 g/dL (32.0-36.0); Mean Corpuscular Volume 93.8 fL (80.0-100.0); Platelet Count 556 K/uL (130-400); RDW Coefficient of Variation 14.3 % (11.5-14.5); RDW Standard Deviation 48.8 fL (36.4-46.3); Red Blood Count 2.88 M/uL (3.93-5.22); White Blood Count 13.21 K/ul (4.8-10.8)
[2021-10-24 09:42] LABS: BUN Creatinine Ratio 32.7 (10-20); Calcium 8.1 mg/dl (8.5-10.1); Creatinine Clr Calc Pharmacy 35.6 ml/min; Est GFR (African American) 50.3 ml/min; Est GFR (Non-African American) 43.4 ml/min; Magnesium 1.7 mg/dl (1.7-2.4); Potassium 4.5 mmol/L (3.5-5.1)
[2021-10-24] MEDS: PANTOprazole 40 MG in SYRINGE 0 ML IV SCH ×2 (10:44→20:20)
[2021-10-24] MEDS ORDERED: ONDANSETRON INJ 2 MG/ML 2 ML VIAL IV PRN (11:59)
[2021-10-24] MEDS ORDERED: SODIUM CHLORIDE 0.9% 250 ML IV PRN (14:06)
--- NOTE | 2021-10-24 15:48 | Gastrointestinal Consultation ---
Date of Consultation October 24, 2021 Assessment & Plan (1) Esophageal reflux: (2) Melena: (3) Acute blood loss anemia: Continue Protonix 40 mg IV BID Transfuse PRBC PRN to maintain H/H around 8/24 NPO after midnight EGD on 10/24/2021 History of Present Illness Reason for Consultation: Melena Attending Physician: Earl Rashid MD History of Present Illness Vijay Stout is a pleasant 86 yo CF who presented to the ER last week with generalized weakness and malaise, and was noted to have A-fib with RVR. She has undergone a significant cardiac workup and is currently on Amiodarone and Eliquis. Over the last 2 days, she has had multiple black and bloody BM's. Her H/H has declined from 10.9/32.9 on admission to 7.6/27.0 on today's labs. She was started on Protonix 40 mg IV BID and ordered 2 u of PRBC to be transfused. At the time I saw the patient, she denied any abdominal pain, lightheadedness, dizziness, hematemesis or diarrhea. She states that she has had 3-4 black and bloody BM's over the past 2 days. She states that she does have a long history of GERD, and has been diagnosed as having a Duodenal ulcer, "many years ago." She has not had any endoscopic workup in the past 7 years since relocating to this area. She denies any further complaints. Allergies Allergy/AdvReac Type Severity Reaction Status Date / Time No Known Allergies Allergy Verified 10/16/21 15:36 Home Medications Medication Instructions Recorded Confirmed Type cholecalciferol (vitamin D3) 50 2,000 units PO QAM 10/13/18 10/16/21 History mcg (2,000 unit) capsule hydrochlorothiazide 12.5 mg capsule 12.5 mg PO DAILY #90 caps 01/10/21 10/16/21 Rx lisinopril 5 mg tablet 5 mg PO DAILY #90 tabs 01/10/21 10/16/21 Rx simvastatin 20 mg tablet 20 mg PO DAILY #90 tabs 03/16/21 10/16/21 Rx omeprazole magnesium 20 mg 20 mg PO Q OTHER DAY 07/29/21 10/16/21 History tablet,delayed release calcium carbonate 500 mg calcium 500 mg PO DAILY 10/16/21 10/16/21 History (1,250 mg) tablet estradiol 0.025 mg/24 hr weekly 1 patch transdermal WK 10/16/21 10/16/21 History transdermal patch (Climara) omega-3 fatty acids 1,000 mg 1,000 mg PO DAILY 10/16/21 10/16/21 History capsule Patient History Medical History Diverticulosis Dyslipidemia Esophageal reflux History of cardiac murmur Hx of migraines OCCULAR MIGRAINES Hypertension Osteopenia Prediabetes SNHL (sensorineural hearing loss) Spinal stenosis, lumbar Surgical History H/O oophorectomy H/O sinus surgery H/O tooth extraction History of anesthesia reaction HAS WOKEN UP IN MIDDLE OF COLONOSCOPIES History of cataract surgery LEFT History of colonoscopy History of esophagogastroduodenoscopy (EGD) History of hysterectomy History of tonsillectomy and adenoidectomy Family History Brother Colon cancer Cancer of unknown origin Sister Pancreatic cancer Pancreatic carcinoma Mother Diabetes Cardiac disorder Myocardial infarction Hypertension Father Hypertension Stroke Other No family history of adverse response to anesthesia Denies family history of Ovarian cancer Prostate cancer Breast cancer Social History Smoking Status: Never smoker Second Hand Exposure: No; Hx Alcohol Use: No Hx Substance Use: No Preferred Language: Nigerien Communication Ability: Effective Visual Impairment: No Limitations Hearing Ability: Normal Group Home Supervisor Required: No Beliefs That Will Affect Care: None marital status: Single Current Living Situation: Alone Current Living Situation Comment: LIVES INDEP. APARTMENT FOR SENIORS>[facility] current occupational status: retired How many Children do You have: 1 Feels Safe at Home: Yes Childhood Exposure to Second-Hand Smoke: No Dental Care, Regularly: Yes Physical Activity Frequency: 3-4 Times per Week Seatbelt Use: always Sunscreen Use: No Assistive Devices: Cane Review of Systems Review of Systems: All systems reviewed & are unremarkable except as noted in HPI & below Physical Exam Constitutional: WD/WN, vitals as above Respiratory: normal respiratory effort, lungs clear to auscultation Cardiovascular: Rate/Rhythm: + tachycardic and + irregularly irregular Gastrointestinal (Abdomen): normal bowel sounds, soft, nontender, no hepatosplenomegaly Skin: no rashes, warm and dry Psychiatric: A+Ox3, euthymic affect Results & Data ([facility]) Vital Signs (Past 12 Hours) Vital Signs Temp Pulse Pulse Resp BP Pulse Ox O2 Del Method 10/24/21 11:30 36.5 C 87 16 129/84 97 Room Air 10/24/21 07:59 95 H 10/24/21 07:24 36.6 C 85 19 142/86 H 94 Room Air PG Care Time/CCT Total # of Minutes Spent Total Time Spent with Patient: Total time spent is greater than 50% in coordination of care (as documented) at patient's floor/unit and/or counseling patient: Coding Level of Care Code 46373 Inpt Consult Level 4 Diagnoses Esophageal reflux K21.9 Melena K92.1 Acute blood loss anemia D62
--- NOTE | 2021-10-24 16:37 | Hospitalist Progress Note ---
Date of Service October 24, 2021 Assessment & Plan (1) Acute blood loss anemia: Plan: Pt with melena and hemoglobin 10.6->7.6 NPO stopped eliquis IV protonix, very distant history of gi ulcers GI evaluation 10/25 consented for transfusion of 2 u prbc (2) Atrial fibrillation with RVR: Plan: New A. fib RVR to the 200s, hypotensive on admission now NSR transitioned to oral amiodarone 400mg bid continue electrolyte repletion Heparin GTT started with [id number] 2+ converted to DOAC, Eliquis twice daily, melena and GI bleeding stopped Metoprolol dose limited by blood pressure Abnormal echo Mobile echodense structure within right atrium seen on echo on 10/17 repeat ECHO 10/22 does not directly comment on presence of mass Anticoagulated stopped as noted above 2. Cardiomegaly with pulmonary edema, small right with [id number] left pleural effusions. likely acute HFpEF from rapid Afib 3. Dependent bibasilar consolidation suggestive of probable atelectasis. Pneumonitis could appear similarly 4. Hiatal hernia with mild distal esophageal wall thickening. Procalcitonin 1.36 --> 1.14, will also be viewed at upcoming EGD With regard to her diarrheabio fire negative, stool PCR neg CTA/P: Pericholecystic fluid, right upper Gallbladder US: Gallbladder wall edema with no evidence of stones and negative Gutiérrez's sign. Findings are equivocal for acute cholecystitis. Patient did not have a signs of acute cholecystitis at this time, stopped antibiotics СВЕТЛАНА CKD rate related failure with volume depletion and poor p.o. intake for several - QUINCY held Acute hypoxic respiratory failure Initially thought to be due to some rate related failure and pulmonary congestion, likely acute diastolic heart failure causing pulmonary edema and then respiratory failure this was treated with diuretics Troponin elevation High-sensitivity troponin 104 on admit Likely demand ischemia with A. fib RVR Patient is clinically without chest pain/chest pressure at any point. She does not feel her A. fib or have palpitations. New transaminitis AST 112, ALT 122, elevated lactate on admission. Lactate normalized, transaminitis doing to downtrend Suspect an organ ischemia from perfusion in the setting of rapid A. fib DVT prophylaxis: Chemoprophylaxiz on hold with acute blood loss, will have scd Diet: Heart healthy, DM Disposition: PCU CODE STATUS: Full code (3) Dyslipidemia: (4) Esophageal reflux: (5) Hypertension: (6) Prediabetes: (7) Spinal stenosis, lumbar: Admission and Anticipated Discharge Date Admission Date: October 16, 2021 Subjective pt was vomting today, has had melena for 2 days , hgb did drop, will transfuse 2 u prbc, npo after mn, on protonix iv bid afib now converted to nsr, but anticoagulation is now with adverse reaction of bleeding, pending Gi work up will need to have authorization for move to SNF for short term Review of Systems Review of Systems: Mild distress and significant fatigue no headache, no visual changes no speech or swallowing issues no chest pain, pressure or palpitations Has had some shortness of breath which is improved nausea and vomiting , melena no dysuria, hematuria or frequency no focal joint pain or swelling no back pain, CVA tenderness or radicular pain no bruising, bleeding or rashes no focal signs of weakness or numbness or altered sensation no complaints of anxiety or depression.. Physical Exam Physical Exam: The patient appeared well nourished and normally developed. Vital signs as documented. Head exam is normocephalic atraumatic Neck is without JVD, thyromegaly, or carotid bruits. Lungs are clear to auscultation, no focal loss of breath sounds no rales Cardiac exam, she is rate controlled in sinus rhythm when examined. Abdominal exam reveals normal bowel sounds, soft non tender, no epigastric tenderness, no masses Right arm is some superficial irritation where her IV was placed Neurologic exam is alert and oriented, no focal loss of strength or sensation Skin is without bruises or rashes Psychologically is without concerns for anxiety or depression.. Results & Data Results & Data ([facility]) Vital Signs (Past 12 Hours) Vital Signs Temp Pulse Pulse Resp BP BP Pulse Ox 10/24/21 16:07 99.1 F 95 H 18 112/94 99 10/24/21 15:51 98.1 F 97 H 18 150/98 H 97 10/24/21 15:31 96.6 F L 94 H 20 150/98 H 91 10/24/21 11:30 97.7 F 87 16 129/84 97 10/24/21 07:59 95 H 10/24/21 07:24 97.9 F 85 19 142/86 H 94 O2 Del Method 10/24/21 16:07 10/24/21 15:51 10/24/21 15:31 Room Air 10/24/21 11:30 Room Air 10/24/21 07:59 10/24/21 07:24 Room Air PG Care Time/CCT Total # of Minutes Spent Total Time Spent with Patient: Total time spent is greater than 50% in coordination of care (as documented) at patient's floor/unit and/or counseling patient: Coding Level of Care Code 57342 Subseq Hosp Care Lvl 3 Diagnoses Acute blood loss anemia D62 Atrial fibrillation with RVR I48.91 Dyslipidemia E78.5 Esophageal reflux K21.9 Hypertension I10 Prediabetes R73.03 Spinal stenosis, lumbar M48.061
[2021-10-24] MEDS ORDERED: NORMOSOL-R 1,000 ML IV SCH (22:00)
[2021-10-24 23:25] LABS: Hematocrit (blood only) 31.1 % (34.1-44.9); Hemoglobin 10.4 g/dl (12.0-16.0)
[2021-10-25] MEDS: INSULIN ASPART PER UNIT SC SCH ×4 (07:21→20:46)
--- NOTE | 2021-10-25 09:29 | Anesthesiology Consultation ---
Date of Service October 25, 2021 History Surgery Operation Date: 10/25/21 16:45 Proposed Procedures p Esophagogastroduodenoscopy Dr Eliud Howard Case, DO Operation Date: 10/25/21 17:15 Proposed Procedures p Esophagogastroduodenoscopy Dr Eliud Iqbal. Case, DO Height/Weight Height: 5 ft 5 in Weight: 78.7 kg Allergies Allergy/AdvReac Type Severity Reaction Status Date / Time No Known Allergies Allergy Verified 10/16/21 15:36 Medications Home Medications Medication Instructions Recorded Confirmed Last Taken cholecalciferol (vitamin D3) 50 2,000 units PO QAM 10/13/18 10/16/21 10/12/21 mcg (2,000 unit) capsule hydrochlorothiazide 12.5 mg capsule 12.5 mg PO DAILY #90 caps 01/10/21 10/16/21 10/12/21 lisinopril 5 mg tablet 5 mg PO DAILY #90 tabs 01/10/21 10/16/21 10/12/21 simvastatin 20 mg tablet 20 mg PO DAILY #90 tabs 03/16/21 10/16/21 10/12/21 omeprazole magnesium 20 mg 20 mg PO Q OTHER DAY 07/29/21 10/16/21 10/12/21 tablet,delayed release calcium carbonate 500 mg calcium 500 mg PO DAILY 10/16/21 10/16/21 10/12/21 (1,250 mg) tablet estradiol 0.025 mg/24 hr weekly 1 patch transdermal WK 10/16/21 10/16/21 10/09/21 transdermal patch (Climara) omega-3 fatty acids 1,000 mg 1,000 mg PO DAILY 10/16/21 10/16/21 10/12/21 capsule Active Medications Generic Name Dose Route Start Last Admin Trade Name Freq PRN Reason Stop Dose Admin Acetaminophen 650 mg 10/16/21 18:39 10/23/21 08:37 Acetaminophen 325 Mg Tab PO 11/15/21 18:38 650 mg Q4H PRN Administration Pain or Fever Amiodarone HCl 400 mg 10/21/21 17:00 10/24/21 16:42 Amiodarone 200 Mg Tab PO 11/20/21 16:59 400 mg BIDM ANNIE Administration Pantoprazole Sodium 40 mg/ 10 mls @ 5 mls/min 10/24/21 11:00 10/24/21 20:20 Syringe IV 11/23/21 10:59 5 mls/min BID ANNIE Administration Parenteral Electrolytes 1,000 mls @ 80 mls/hr 10/24/21 22:00 10/24/21 21:30 Normosol-R IV 10/25/21 10:29 80 mls/hr .[id number] ANNIE Administration Insulin Aspart 0 units 10/16/21 21:00 10/25/21 07:21 Insulin Aspart Per Unit SC 11/15/21 20:59 Not Given ACHS ANNIE Magnesium Oxide 400 mg 10/23/21 09:00 10/24/21 09:03 Magnesium Oxide 400 Mg Tab PO 11/22/21 08:59 400 mg QAM ANNIE Administration Metoprolol Tartrate 5 mg 10/16/21 18:33 10/20/21 01:15 Metoprolol Tartrate 1 Mg/Ml Vial IV 11/15/21 18:32 5 mg Q5M PRN Administration HR >140, notify provider Metoprolol Tartrate 50 mg 10/17/21 21:00 10/24/21 20:21 Metoprolol Tartrate 50 Mg Tab PO 11/16/21 20:59 50 mg BID ANNIE Administration Polyethylene Glycol 17 gm 10/24/21 09:00 10/24/21 09:07 Polyethylene (Miralax) 17 Gm Pack PO 11/23/21 08:59 Not Given DAILY ANNIE Potassium Chloride 20 meq 10/23/21 09:00 10/24/21 09:07 Potassium Chloride Crtab 20 Meq Tabcr PO 11/22/21 08:59 20 meq QAM ANNIE Administration Past Medical History Medical History Diverticulosis Dyslipidemia Esophageal reflux History of cardiac murmur Hx of migraines OCCULAR MIGRAINES Hypertension Osteopenia Prediabetes SNHL (sensorineural hearing loss) Spinal stenosis, lumbar Past Family History Family History Brother Colon cancer Cancer of unknown origin Sister Pancreatic cancer Pancreatic carcinoma Mother Diabetes Cardiac disorder Myocardial infarction Hypertension Father Hypertension Stroke Other No family history of adverse response to anesthesia Denies family history of Ovarian cancer Prostate cancer Breast cancer Past Surgical History Surgical History H/O oophorectomy H/O sinus surgery H/O tooth extraction History of anesthesia reaction HAS WOKEN UP IN MIDDLE OF COLONOSCOPIES History of cataract surgery LEFT History of colonoscopy History of esophagogastroduodenoscopy (EGD) History of hysterectomy History of tonsillectomy and adenoidectomy Social History Smoking Status: Never smoker Do You Dip or Chew Tobacco: No Hx Alcohol Use: No Hx Substance Use: No substance use type: does not use Physical Exam Vital Signs Last Vital Signs Temp 36.2 C L 10/25/21 07:10 Pulse 87 10/25/21 07:10 Resp 18 10/25/21 07:10 BP 148/90 H 10/25/21 07:10 Pulse Ox 97 10/25/21 07:10 O2 Del Method 10/25/21 07:10 O2 Flow Rate 2 10/21/21 09:34 Testing Laboratory Results 10/24/21 22:30 10/24/21 09:03 PT 11.8 Seconds (9.0-12.0) 10/16/21 11:33 INR 1.1 (0.9-1.1) 10/16/21 11:33 APTT 27.6 Seconds (21.0-31.0) 10/21/21 15:33 Urine Color Yellow 10/16/21 21:20 Urine Appearance Cloudy (Clear) A 10/16/21 21:20 Urine pH 5.0 (4.5-7.5) 10/16/21 21:20 Ur Specific [place] 1.021 (1.000-1.030) 10/16/21 21:20 Urine Protein 1+ (Negative) H 10/16/21 21:20 Urine Glucose (UA) Negative (Negative) 10/16/21 21:20 Urine Ketones Trace (Negative) H 10/16/21 21:20 Urine Nitrite Negative (Negative) 10/16/21 21:20 Ur Leukocyte Esterase Negative (Negative) 10/16/21 21:20 Urine WBC (Auto) 1-5 /hpf (0-5) 10/16/21 21:20 Urine RBC (Auto) 5-10 /hpf (0-4) H 10/16/21 21:20 U Hyaline Cast (Auto) 5-10 /lpf (0-5) H 10/16/21 21:20 U Epithel Cells (Auto) >30 /lpf (0-5) H 10/16/21 21:20 Urine Bacteria (Auto) 1+ (Negative) H 10/16/21 21:20 Blood Type AB Positive 10/24/21 12:45 Antibody Screen NEGATIVE 10/24/21 12:45 10/16/21 12:44 Aerobic Blood Culture - Final Blood No growth in Aerobic bottle after 5 days. Anaerobic Blood Culture - Final No growth in Anaerobic bottle after 5 days. 10/16/21 12:52 Aerobic Blood Culture - Final Blood No growth in Aerobic bottle after 5 days. Anaerobic Blood Culture - Final 10/16/21 21:20 Urine Culture - Final Urine,Clean Catch More than three types of organisms present, all moderate counts mixed probable skin jeff. No further identifications or sensitivities to follow. 10/25/21 07:10 POC Glucose 100 H Electrocardiogram Date: 10/21/21 Test Reason : Blood Pressure : / mmHG Vent. Rate : 141 BPM Atrial Rate : 108 BPM P-R Int : 000 ms QRS Dur : 060 ms QT Int : 282 ms P-R-T Axes : 000 -07 176 degrees QTc Int : 431 ms Poor data quality, interpretation may be adversely affected Atrial fibrillation with rapid ventricular response Low voltage QRS Cannot rule out Anterior infarct , age undetermined Abnormal ECG When compared with ECG of 17-OCT-2021 05:25, Atrial fibrillation has replaced Sinus rhythm Vent. rate has increased BY 61 BPM Confirmed by Wing Miller ([id number]) on 10/22/2021 6:22:44 AM Chest X-Ray Date: 10/19/21 FINDINGS: Single frontal view of the chest demonstrates the heart to again be enlarged. There has been interval development of increased density in the retrocardiac region on the left along with left pleural effusion. Findings suggest early infiltrate versus atelectasis. Small right pleural effusion and right basilar atelectasis are also present. These findings were seen on the CT. Follow-up PA and lateral radiographs are necessary for further evaluation. There is no evidence for vascular congestion. There is no acute osseous pathology. IMPRESSION: 1. Small bilateral pleural effusions, left greater than right and bibasilar atelectasis, left greater than right. 2. Early infiltrate in the retrocardiac region cannot be excluded based on this study. Follow-up PA and lateral radiographs are recommended. Echocardiogram Date: 10/22/21 EF: 60-65% LV Function: normal RWMA: + none Valvular Disease: + pertinent finding (mild tricuspid regurgitation)
--- NOTE | 2021-10-25 09:57 | History & Physical Bridge Note ---
Date of Service October 25, 2021 History & Physical Bridge Note I have examined the patient, reviewed the History & Physical and in the interval since the performance of the History & Physical I have noted the following changes of clinical significance: no changes noted. H/H 10.4/31.1. Keep NPO & Proceed with EGD today. Agree with EBEN Champion as above Abd: Soft, NT, ND, +BS Continue current therapy Proceed with EGD now secondary to melena and acute blood loss anemia.
[2021-10-25] MEDS ORDERED: LIDOCAINE 2% MPF LOCAL 5 ML VIAL INFIL ONE (11:30)
[2021-10-25] MEDS ORDERED: PROPOFOL IV EMULSION 10 MG/ML 20 ML VIAL IV ONE (11:30)
--- NOTE | 2021-10-25 12:08 | GI REPORT ---
Patient Name: Vijay Stout Procedure Date: 10/25/2021 11:34 AM Date of : 1935 Admit Type: Inpatient Age: 86 Gender: Female Attending MD: Travis Kline DO Procedure: Upper GI endoscopy Providers: Travis Kline DO Referring MD: Stephane Parsons Md Indications: Acute post hemorrhagic anemia, Melena Medicines: Monitored Anesthesia Care Complications: No immediate complications. Estimated Blood Loss: Estimated blood loss: none. Procedure: Pre-Anesthesia Assessment: - Prior to the procedure, a History and Physical was performed, and patient medications and allergies were reviewed. The patient's tolerance of previous anesthesia was also reviewed. The risks and benefits of the procedure and the sedation options and risks were discussed with the patient. All questions were answered, and informed consent was obtained. Prior Anticoagulants: The patient has taken Eliquis (apixaban), last dose was 2 days prior to procedure. ASA Grade Assessment: III - A patient with severe systemic disease. After reviewing the risks and benefits, the patient was deemed in satisfactory condition to undergo the procedure. After obtaining informed consent, the endoscope was passed under direct vision. Throughout the procedure, the patient's blood pressure, pulse, and oxygen saturations were monitored continuously. The Scope was introduced through the mouth, and advanced to the second part of duodenum. The upper GI endoscopy was accomplished without difficulty. The patient tolerated the procedure well. Findings: The esophagus was normal. A small hiatal hernia was present. The entire examined stomach was normal. Biopsies were taken with a cold forceps for Helicobacter pylori testing. Three non-bleeding cratered duodenal ulcers with no stigmata of bleeding were found in the duodenal bulb and in the second portion of the duodenum. The largest lesion was 6 mm in largest dimension. Impression: - Normal esophagus. - Small hiatal hernia. - Normal stomach. Biopsied. - Non-bleeding duodenal ulcers with no stigmata of bleeding. Recommendation: - [facility]. - Advance diet as tolerated. - Continue present medications. - Recommend Protonix 40 mg PO BID indefinitely - Await pathology results. Travis Kline DO 10/25/2021 12:07:42 PM This report has been signed electronically. Note Initiated On: 10/25/2021 11:34 AM Number of Addenda: 0 I attest to the content of the Intraoperative Record and orders documented therein, exceptions below {[id number]}
[2021-10-25] MEDS: PANTOprazole 40 MG in SYRINGE 0 ML IV SCH ×2 (13:18→20:46)
[2021-10-25] MEDS: MAGNESIUM OXIDE 400 MG TAB PO SCH (13:18)
[2021-10-25] MEDS: POTASSIUM CHLORIDE CRTAB 20 MEQ TABCR PO SCH (13:18)
[2021-10-25] MEDS: METOPROLOL TARTRATE 50 MG TAB PO SCH ×2 (13:18→20:47)
[2021-10-25] MEDS: AMIODARONE 200 MG TAB PO SCH ×2 (13:18→20:48)
[2021-10-25] MEDS: POLYETHYLENE (MIRALAX) 17 GM PACK PO SCH (13:19)
--- NOTE | 2021-10-25 13:44 | Hospitalist Progress Note ---
Date of Service October 25, 2021 Assessment & Plan (1) Acute blood loss anemia: Plan: Pt with melena and hemoglobin 10.6->7.6 on 10/24. Received 2 units PRBCs on 10/24. NPO stopped eliquis IV protonix, very distant history of gi ulcers GI evaluation 10/25 -> EGD on 10/25 showed cratered duodenal ulcers without active bleeding. Plan for PPI PO BID indefinitely. (2) Atrial fibrillation with RVR: Plan: New A. fib RVR to the 200s, hypotensive on admission now NSR transitioned to oral amiodarone 400mg bid continue electrolyte repletion Heparin GTT started with [id number] 2+ converted to DOAC, Eliquis twice daily, melena and GI bleeding stopped Metoprolol dose limited by blood pressure Abnormal echo Mobile echodense structure within right atrium seen on echo on 10/17 repeat ECHO 10/22 does not directly comment on presence of mass Anticoagulated stopped as noted above 2. Cardiomegaly with pulmonary edema, small right with [id number] left pleural effusions. likely acute HFpEF from rapid Afib 3. Dependent bibasilar consolidation suggestive of probable atelectasis. Pneumonitis could appear similarly 4. Hiatal hernia with mild distal esophageal wall thickening. Procalcitonin 1.36 --> 1.14, will also be viewed at upcoming EGD With regard to her diarrheabio fire negative, stool PCR neg CTA/P: Pericholecystic fluid, right upper Gallbladder US: Gallbladder wall edema with no evidence of stones and negative Gutiérrez's sign. Findings are equivocal for acute cholecystitis. Patient did not have a signs of acute cholecystitis at this time, stopped antibiotics СВЕТЛАНА CKD rate related failure with volume depletion and poor p.o. intake for several - QUINCY held - Baseline Cr of 1.1 by 10/25 Acute hypoxic respiratory failure Initially thought to be due to some rate related failure and pulmonary congestion, likely acute diastolic heart failure causing pulmonary edema and then respiratory failure this was treated with diuretics Troponin elevation High-sensitivity troponin 104 on admit Likely demand ischemia with A. fib RVR Patient is clinically without chest pain/chest pressure at any point. She does not feel her A. fib or have palpitations. New transaminitis AST 112, ALT 122, elevated lactate on admission. Lactate normalized, transaminitis doing to downtrend Suspect an organ ischemia from perfusion in the setting of rapid A. fib DVT prophylaxis: Chemoprophylaxis on hold with acute blood loss, will have scd Diet: Heart healthy, DM Disposition: PCU CODE STATUS: Full code (3) Dyslipidemia: (4) Esophageal reflux: (5) Hypertension: (6) Prediabetes: (7) Spinal stenosis, lumbar: Admission and Anticipated Discharge Date Admission Date: October 16, 2021 Subjective Doing well today. No BM overnight or this morning, so no GI bleeding. Reports no fevers/chills, chest pain, shortness of breath, abdominal pain, nausea, or vomiting. Physical Exam Constitutional: WD/WN, vitals as above Eyes: EOM intact bilaterally; no conjunctival abnormality ENMT: external ear and nose normal, oropharynx normal Neck: trachea midline, no thyromegaly normal visual inspection Respiratory: normal respiratory effort, lungs clear to auscultation no respiratory distress Cardiovascular: RRR, no murmur, no edema Gastrointestinal (Abdomen): Inspection/Auscultation: abdomen normal to inspection; abdomen not distended Musculoskeletal: no cyanosis or clubbing, extremities motor strength 5/5 Skin: no rashes, warm and dry Neurologic: moves all extremities and awake Psychiatric: Orientation: alert, oriented to person and cooperative Results & Data Results & Data ([facility]) Vital Signs (Past 12 Hours) Vital Signs Temp Pulse Resp BP Pulse Ox O2 Del Method 10/25/21 13:00 36.4 C L 96 H 18 154/93 H 99 Room Air 10/25/21 12:35 96 H 16 142/83 H 97 Room Air 10/25/21 12:20 96 H 14 132/74 96 Room Air 10/25/21 12:05 81 12 112/61 96 Room Air 10/25/21 10:41 36.4 C L 93 H 16 144/75 H 96 Room Air 10/25/21 07:10 36.2 C L 87 18 148/90 H 97 Room Air 10/25/21 02:38 36.7 C 92 H 17 147/84 H 96 Room Air PG Care Time/CCT Total # of Minutes Spent Total Time Spent with Patient: Total time spent is greater than 50% in coordination of care (as documented) at patient's floor/unit and/or counseling patient: Coding Level of Care Code 56866 Subseq Hosp Care Lvl 2 Diagnoses Acute blood loss anemia D62 Atrial fibrillation with RVR I48.91 Dyslipidemia E78.5 Esophageal reflux K21.9 Hypertension I10 Prediabetes R73.03 Spinal stenosis, lumbar M48.061
--- NOTE | 2021-10-25 13:59 | Anesthesiology Progress Note ---
Date of Service October 25, 2021 Anesthesia Post Procedure Vital Signs Vital Signs: Temp Pulse Pulse Pulse Resp BP BP 10/25/21 13:00 36.4 C L 96 H 18 154/93 H 10/25/21 12:35 96 H 16 142/83 H 10/25/21 12:20 96 H 14 132/74 10/25/21 12:05 81 12 112/61 10/25/21 10:41 36.4 C L 93 H 16 144/75 H 10/25/21 07:10 36.2 C L 87 18 148/90 H 10/25/21 02:38 36.7 C 92 H 17 147/84 H 10/24/21 23:00 82 10/24/21 22:49 36.7 C 84 18 146/88 H 10/24/21 21:15 36.8 C 86 17 146/83 H 10/24/21 20:18 36.9 C 92 H 18 157/83 H 10/24/21 19:30 10/24/21 19:48 37.0 C 89 16 138/90 10/24/21 19:33 37.0 C 90 17 139/80 10/24/21 19:18 36.8 C 91 H 17 149/88 H 10/24/21 19:03 36.9 C 64 16 152/94 H 10/24/21 18:38 10/24/21 17:52 36.8 C 96 H 16 141/86 H 10/24/21 18:00 10/24/21 17:00 92 H 10/24/21 16:52 36.6 C 92 H 18 154/85 H 10/24/21 16:22 36.7 C 97 H 18 138/87 10/24/21 16:07 37.3 C 95 H 18 112/94 10/24/21 15:51 36.7 C 97 H 18 150/98 H 10/24/21 15:31 35.9 C L 94 H 20 150/98 H Pulse Ox Pulse Ox O2 Del Method O2 Del Method 10/25/21 13:00 99 Room Air 10/25/21 12:35 97 Room Air 10/25/21 12:20 96 Room Air 10/25/21 12:05 96 Room Air 10/25/21 10:41 96 Room Air 10/25/21 07:10 97 Room Air 10/25/21 02:38 96 Room Air 10/24/21 23:00 10/24/21 22:49 94 Room Air 10/24/21 21:15 96 10/24/21 20:18 95 10/24/21 19:30 Room Air 10/24/21 19:48 99 10/24/21 19:33 97 10/24/21 19:18 98 10/24/21 19:03 97 10/24/21 18:38 93 10/24/21 17:52 98 10/24/21 18:00 98 Room Air 10/24/21 17:00 10/24/21 16:52 97 10/24/21 16:22 98 10/24/21 16:07 99 10/24/21 15:51 97 10/24/21 15:31 91 Room Air Transfer of Care Handoff Completed per policy Notes Mental Status: alert / awake / arousable and participated in evaluation Patient Amnestic to Procedure: Yes Nausea / Vomiting: adequately controlled Pain: adequately controlled Airway Patency, RR, SpO2: stable & adequate BP & HR: stable & adequate Hydration State: stable & adequate Anesthetic Complications: no major complications apparent and Pt Satisfied with anesthetic care
[2021-10-25] MEDS ORDERED: Nursing to Pharmacy Communication SCH (17:30)
[2021-10-26 06:23] LABS: Hematocrit (blood only) 30.2 % (34.1-44.9); Hemoglobin 10.2 g/dl (12.0-16.0); Mean Corpuscular Hemoglobin 30.2 pg (25.0-34.0); Mean Corpuscular Hgb Conc 33.8 g/dL (32.0-36.0); Mean Corpuscular Volume 89.3 fL (80.0-100.0); Mean Platelet Volume 8.9 fL (9.4-12.3); Platelet Count 509 K/uL (130-400); RDW Coefficient of Variation 16.3 % (11.5-14.5); RDW Standard Deviation 53.1 fL (36.4-46.3); Red Blood Count 3.38 M/uL (3.93-5.22)
[2021-10-26 06:42] LABS: BUN Creatinine Ratio 22.4 (10-20); Creatinine Clr Calc Pharmacy 31.7 ml/min; Est GFR (African American) 44.5 ml/min; Est GFR (Non-African American) 38.4 ml/min; Magnesium 1.8 mg/dl (1.7-2.4); Potassium 4.1 mmol/L (3.5-5.1)
[2021-10-26] MEDS: POTASSIUM CHLORIDE CRTAB 20 MEQ TABCR PO SCH (08:09)
[2021-10-26] MEDS: PANTOprazole 40 MG in SYRINGE 0 ML IV SCH ×2 (08:09→19:50)
[2021-10-26] MEDS: METOPROLOL TARTRATE 50 MG TAB PO SCH ×2 (08:10→19:50)
[2021-10-26] MEDS: AMIODARONE 200 MG TAB PO SCH ×2 (08:10→16:52)
[2021-10-26] MEDS: POLYETHYLENE (MIRALAX) 17 GM PACK PO SCH (08:10)
[2021-10-26] MEDS: MAGNESIUM OXIDE 400 MG TAB PO SCH (08:10)
[2021-10-26] MEDS: INSULIN ASPART PER UNIT SC SCH ×4 (08:12→21:14)
--- NOTE | 2021-10-26 10:00 | Communication Note ---
Date of Service: October 26, 2021 Coordination of Care Note: Patient underwent an EGD yesterday that indicated 3 duodenal ulcers. At the present time, I would advise Protonix 40 mg BID on discharge. We will communicate results of biopsies to her as an outpatient. She will be scheduled for follow-up in our office in 8 weeks for further recommendations. Our office will arrange this visit.
--- NOTE | 2021-10-26 15:10 | Hospitalist Progress Note ---
Date of Service October 26, 2021 Assessment & Plan (1) Acute blood loss anemia: Plan: Pt with melena and hemoglobin 10.6->7.6 on 10/24. Received 2 units PRBCs on 10/24. NPO stopped eliquis IV protonix, very distant history of gi ulcers GI evaluation 10/25 -> EGD on 10/25 showed cratered duodenal ulcers without active bleeding. Plan for PPI PO BID indefinitely. - Discussed with GI today; request holding anticoagulation for at least 1 week. (2) Atrial fibrillation with RVR: Plan: New A. fib RVR to the 200s, hypotensive on admission now NSR transitioned to oral amiodarone 400mg bid continue electrolyte repletion Heparin GTT started with [id number] 2+ converted to DOAC, Eliquis twice daily, melena and GI bleeding stopped Metoprolol dose limited by blood pressure - Have reached out to cardiology to see their recommendations. Now that she is out of afib, could we consider holding anticoagulation all together? Abnormal echo Mobile echodense structure within right atrium seen on echo on 10/17 repeat ECHO 10/22 does not directly comment on presence of mass Anticoagulated stopped as noted above - Unclear to me if there was any mass there at all or just artifact? 2. Cardiomegaly with pulmonary edema, small right with [id number] left pleural effusions. likely acute HFpEF from rapid Afib 3. Dependent bibasilar consolidation suggestive of probable atelectasis. Pneumonitis could appear similarly 4. Hiatal hernia with mild distal esophageal wall thickening. Procalcitonin 1.36 --> 1.14, will also be viewed at upcoming EGD With regard to her diarrheabio fire negative, stool PCR neg CTA/P: Pericholecystic fluid, right upper Gallbladder US: Gallbladder wall edema with no evidence of stones and negative Gutiérrez's sign. Findings are equivocal for acute cholecystitis. Patient did not have a signs of acute cholecystitis at this time, stopped antibiotics СВЕТЛАНА CKD rate related failure with volume depletion and poor p.o. intake for several - QUINCY held - Baseline Cr of 1.1 by 10/25 Acute hypoxic respiratory failure Initially thought to be due to some rate related failure and pulmonary congestion, likely acute diastolic heart failure causing pulmonary edema and then respiratory failure this was treated with diuretics Troponin elevation High-sensitivity troponin 104 on admit Likely demand ischemia with A. fib RVR Patient is clinically without chest pain/chest pressure at any point. She does not feel her A. fib or have palpitations. New transaminitis AST 112, ALT 122, elevated lactate on admission. Lactate normalized, transaminitis doing to downtrend Suspect an organ ischemia from perfusion in the setting of rapid A. fib DVT prophylaxis: Chemoprophylaxis on hold with acute blood loss, will have scd Diet: Heart healthy, DM Disposition: PCU CODE STATUS: Full code (3) Dyslipidemia: (4) Esophageal reflux: (5) Hypertension: (6) Prediabetes: (7) Spinal stenosis, lumbar: Admission and Anticipated Discharge Date Admission Date: October 16, 2021 Subjective Doing well today. No major issues. Reports no fevers/chills, chest pain, shortness of breath, abdominal pain, nausea, or vomiting. Physical Exam Constitutional: WD/WN, vitals as above Eyes: EOM intact bilaterally; no conjunctival abnormality ENMT: external ear and nose normal, oropharynx normal Neck: trachea midline, no thyromegaly normal visual inspection Respiratory: normal respiratory effort, lungs clear to auscultation no respiratory distress Cardiovascular: RRR, no murmur, no edema Gastrointestinal (Abdomen): Inspection/Auscultation: abdomen normal to inspection; abdomen not distended Musculoskeletal: no cyanosis or clubbing, extremities motor strength 5/5 Skin: no rashes, warm and dry Neurologic: moves all extremities and awake Psychiatric: Orientation: alert, oriented to person and cooperative Results & Data Results & Data ([facility]) Vital Signs (Past 12 Hours) Vital Signs Temp Pulse Pulse Resp BP Pulse Ox O2 Del Method 10/26/21 14:45 36.8 C 80 17 136/86 92 Room Air 10/26/21 11:11 36.8 C 72 17 138/64 96 Room Air 10/26/21 10:35 83 10/26/21 10:35 Room Air 10/26/21 07:12 36.8 C 81 17 157/79 H 96 Room Air PG Care Time/CCT Total # of Minutes Spent Total Time Spent with Patient: Total time spent is greater than 50% in coordination of care (as documented) at patient's floor/unit and/or counseling patient: Coding Level of Care Code 77304 Subseq Hosp Care Lvl 2 Diagnoses Acute blood loss anemia D62 Atrial fibrillation with RVR I48.91 Dyslipidemia E78.5 Esophageal reflux K21.9 Hypertension I10 Prediabetes R73.03 Spinal stenosis, lumbar M48.061
[2021-10-27] MEDS: INSULIN ASPART PER UNIT SC SCH ×4 (07:15→20:04)
[2021-10-27] MEDS: AMIODARONE 200 MG TAB PO SCH ×2 (07:45→17:24)
[2021-10-27] MEDS: METOPROLOL TARTRATE 50 MG TAB PO SCH ×2 (08:00→20:13)
[2021-10-27] MEDS: PANTOprazole 40 MG in SYRINGE 0 ML IV SCH ×2 (08:02→20:14)
[2021-10-27] MEDS: MAGNESIUM OXIDE 400 MG TAB PO SCH (08:07)
[2021-10-27] MEDS: POTASSIUM CHLORIDE CRTAB 20 MEQ TABCR PO SCH (08:08)
[2021-10-27] MEDS: POLYETHYLENE (MIRALAX) 17 GM PACK PO SCH (08:08)
--- NOTE | 2021-10-27 16:12 | Hospitalist Progress Note ---
Date of Service October 27, 2021 Assessment & Plan (1) Acute blood loss anemia: Plan: Pt with melena and hemoglobin 10.6->7.6 on 10/24. Received 2 units PRBCs on 10/24. GI evaluation 10/25 -> EGD on 10/25 showed cratered duodenal ulcers without active bleeding. Plan for PPI PO BID indefinitely. - Discussed with GI 10/27; request holding anticoagulation for at least 1 week. Given overall risk/benefit stratification and maintenance of sinus rhythm while on amiodarone will plan to defer anticoagulation on discharge with close follow-up to cardiology (2) Atrial fibrillation with RVR: Plan: New A. fib RVR to the 200s, hypotensive on admission now NSR transitioned to oral amiodarone Heparin GTT started with [id number] 2+ converted to DOAC, Eliquis stopped, melena and GI bleeding stopped. Given risk/benefits and maintenance of sinus on amiodarone, reasonable to defer Eliquis due to her bleeding and definitely with close follow-up to cardiology and resume if A. fib returns Metoprolol dose limited by blood pressure Abnormal echo Mobile echodense structure within right atrium seen on echo on 10/17 repeat ECHO 10/22 does not directly comment on presence of mass Anticoagulated stopped as noted above -Unclear if was artifact, was not appreciated on subsequent echo - Cardiomegaly with pulmonary edema, small right with [id number] left pleural effusions. likely acute HFpEF from rapid Afib -. Dependent bibasilar consolidation suggestive of probable atelectasis. Pneumonitis could appear similarly - Hiatal hernia with mild distal esophageal wall thickening. Procalcitonin 1.36 --> 1.14 With regard to her diarrheabio fire negative, stool PCR neg CTA/P: Pericholecystic fluid, right upper Gallbladder US: Gallbladder wall edema with no evidence of stones and negative Gutiérrez's sign. Findings are equivocal for acute cholecystitis. Patient did not have a signs of acute cholecystitis at this time, stopped antibiotics СВЕТЛАНА CKD rate related failure with volume depletion and poor p.o. intake for several - QUINCY held -Then normalized Acute hypoxic respiratory failure Initially thought to be due to some rate related failure and pulmonary congestion, likely acute diastolic heart failure causing pulmonary edema and then respiratory failure this was treated with diuretics Troponin elevation High-sensitivity troponin 104 on admit Likely demand ischemia with A. fib RVR Patient is clinically without chest pain/chest pressure at any point. She does not feel her A. fib or have palpitations. New transaminitis AST 112, ALT 122, elevated lactate on admission. Lactate normalized, transaminitis doing to downtrend Suspect an organ ischemia from perfusion in the setting of rapid A. fib Do not suspect this was 2/2 amiodarone which has been continued DVT prophylaxis: Chemoprophylaxis on hold with acute blood loss, will have scd Diet: Heart healthy, DM Disposition: PCU. Patient is appealing placement decision, if denied likely home health, CM following CODE STATUS: Full code (3) Dyslipidemia: (4) Esophageal reflux: (5) Hypertension: (6) Prediabetes: (7) Spinal stenosis, lumbar: Admission and Anticipated Discharge Date Admission Date: October 16, 2021 Subjective Doing well, no complaints. No fever, chills, sweats, chest pain, chest pressure, lightheadedness, dizziness, nausea, vomiting. She reports "so strange "as she has felt very little, and if had not known for monitoring labs she would not have known that she was sick as she was. She has a family appeal out for placement, and case management is following. Review of Systems Review of Systems: All systems reviewed & are unremarkable except as noted in Subjective Physical Exam Physical Exam: General: A&Ox3. NAD. Cooperative. HEENT: Atraumatic, normocephalic. Vision and hearing grossly intact Pulm: CTAB A&P. -wheezes, -rales, -rhonchi. Symmetrical chest rise. No increase in work of breathing. No respiratory distress. Cardiac: RRR, -mrg. Radial pulses intact and symmetrical. Abdominal: Nontender, nondistended, soft. BS present. Results & Data Results & Data ([facility]) Vital Signs (Past 12 Hours) Vital Signs Temp Pulse Pulse Resp BP Pulse Ox O2 Del Method 10/27/21 14:59 36.5 C 79 17 142/82 H 97 Room Air 10/27/21 10:52 36.5 C 76 17 141/79 H 96 Room Air 10/27/21 07:45 Room Air 10/27/21 07:00 69 10/27/21 07:01 36.6 C 73 17 136/68 92 Room Air PG Care Time/CCT Total # of Minutes Spent Total Time Spent with Patient: Total time spent is greater than 50% in coordination of care (as documented) at patient's floor/unit and/or counseling patient: Coding Level of Care Code 45651 Subseq Hosp Care Lvl 2 Diagnoses Acute blood loss anemia D62 Atrial fibrillation with RVR I48.91 Dyslipidemia E78.5 Esophageal reflux K21.9 Hypertension I10 Prediabetes R73.03 Spinal stenosis, lumbar M48.061
[2021-10-28] MEDS: INSULIN ASPART PER UNIT SC SCH (07:24)
[2021-10-28] MEDS: METOPROLOL TARTRATE 50 MG TAB PO SCH (08:00)
[2021-10-28] MEDS: POTASSIUM CHLORIDE CRTAB 20 MEQ TABCR PO SCH (08:09)
[2021-10-28] MEDS: PANTOprazole 40 MG in SYRINGE 0 ML IV SCH (08:10)
[2021-10-28] MEDS: POLYETHYLENE (MIRALAX) 17 GM PACK PO SCH (08:10)
[2021-10-28] MEDS: MAGNESIUM OXIDE 400 MG TAB PO SCH (08:10)
[2021-10-28] MEDS: AMIODARONE 200 MG TAB PO SCH (08:53)
[2021-10-28 09:49] LABS: Hematocrit (blood only) 32.7 % (34.1-44.9); Hemoglobin 10.4 g/dl (12.0-16.0); Mean Corpuscular Hemoglobin 29.3 pg (25.0-34.0); Mean Corpuscular Hgb Conc 31.8 g/dL (32.0-36.0); Mean Corpuscular Volume 92.1 fL (80.0-100.0); Mean Platelet Volume 8.5 fL (9.4-12.3); Platelet Count 614 K/uL (130-400); RDW Coefficient of Variation 15.7 % (11.5-14.5); RDW Standard Deviation 51.9 fL (36.4-46.3); Red Blood Count 3.55 M/uL (3.93-5.22); White Blood Count 9.96 K/ul (4.8-10.8)
[2021-10-28 10:11] LABS: Albumin Globulin Ratio 1.2 (0.9-2); Albumin Level 3.3 gm/dl (3.4-5.0); BUN Creatinine Ratio 18.8 (10-20); Bilirubin,Total 0.4 mg/dl (0.2-1.0); Calcium 8.4 mg/dl (8.5-10.1); Creatinine Clr Calc Pharmacy 28.5 ml/min; Est GFR (African American) 39.5 ml/min; Est GFR (Non-African American) 34.1 ml/min; Globulin 2.8 gm/dl (2.5-4.0); Potassium 3.9 mmol/L (3.5-5.1); Total Protein 6.1 gm/dl (6.0-8.3)
--- NOTE | 2021-10-28 15:49 | Discharge Summary ---
Date of Service October 28, 2021 Admission HPI Per Admitting Provider 86-year-old female who presents with 2-3 days of diarrhea, recent mild cough, was found to be in A. fib with RVR Per ER: COVID negative Cough, congestion, N/V/D over past several days + Weakness EMS called to assisted living New afib with RVR in 200s, hypotensive 80/40s 10mg dilt in the field. improved 170s, pressures improved 15mg dilt here with improvement and spontaneously cardioverted with pressures improved. Drip stopped for NSR, reverted back to 200s in afib. second 15 dilt gtt and hr now 125 afib. Anion gap metabolic acidosis suspect 2/2 ketosis Lactate 2.5, no eating/drinking BC pending. PCT elevated 1. Empiric Rocephin/Doxy of CAP Cr 2.8 baseline 1.1 LFTs elevated suspected stress vs anaplasma covered with doxy, plt normal CT-A/P: 1. Nonspecific color wall thickening with pericholecystic fluid. Right upper quadrant abdominal ultrasound recommended to exclude acute cholecystitis. 2. Urinary bladder wall thickening with perivesicular and perinephric stranding. Correlate with urinalysis to exclude cystitis. 3. No bowel obstruction or bowel wall thickening.4. Chronic diverticulosis.5. Small hiatal hernia. No allergies. +decreased appetite, light colored BMs x2 days, poor appetite. Denies pain. No chest pain, no palitations, no shortness of breath. Very poor appetite for 2 days with minimal intake, but has had no chest pain at any time. Was a little short of breath this morning. Denies orthopnea. Denies fever/chills/sweats. She has not had any abdominal pain. Not sure why she is not hungry, just reports she overall feels tired. No history of A. fib, reports she really has been otherwise pretty healthy without any significant medical problems. Some hypertension well-controlled. Denies tobacco, alcohol, medical marijuana use. No history of bleeding. No history of heart disease or strokes. Per ED without DM. Reflux managed with PPI as needed. Medical History: Reviewed Medications: Reviewed Surgical History: Reviewed Allergies: Reviewed Social History: No tobacco/Etoh Code Status: Ousmane Stout [phone] surrogate DM. Full Code. Principal Diagnosis Atrial fibrillation with rapid ventricular rate Possible viral gastroenteritis Possible pneumonia Acute GI bleed on Eliquis and off omeprazole Discharge Exam Constitutional WD/WN, vitals as above Respiratory normal respiratory effort, lungs clear to auscultation Cardiovascular Rate/Rhythm: regular rate and + irregularly irregular Extremities: normal capillary refill and + pedal edema (1+ ankles pitting); no calf tenderness Gastrointestinal (Abdomen) normal bowel sounds, soft, nontender, no hepatosplenomegaly Skin no rashes, warm and dry Psychiatric A+Ox3, euthymic affect Discharge Data Allergies Allergy/AdvReac Type Severity Reaction Status Date / Time No Known Allergies Allergy Verified 10/31/21 09:58 Consultations 10/16/21 14:10 ED Decision to Admit Stat 10/18/21 08:00 Consult Cardiology Routine 10/24/21 16:28 Consult Gastroenterology Routine Procedures Performed Operation Date: 10/25/21 16:45 Actual Procedures p EGD Biopsy Cytology - Travis Howard Case, DO Operation Date: 10/25/21 17:15 <No data on this case meets the specified criteria> Ordered Studies 10/16/21 12:29 CT abd pelvis wo con Stat IMPRESSION: 1. Nonspecific color wall thickening with pericholecystic fluid. Right upper quadrant abdominal ultrasound recommended to exclude acute cholecystitis. 2. Urinary bladder wall thickening with perivesicular and perinephric stranding. Correlate with urinalysis to exclude cystitis. 3. No bowel obstruction or bowel wall thickening. 4. Chronic diverticulosis. 5. Small hiatal hernia. ADDENDUM There was a typographic speech dictation error in the following impression. #1 should read ("nonspecific GALLBLADDER wall thickening...." 10/16/21 15:15 CT chest diagnostic wo con Stat IMPRESSION: 1. Limited exam secondary to respiratory motion artifact. 2. Cardiomegaly with pulmonary edema, small right with [id number] left pleural effusions. 3. Dependent bibasilar consolidation suggestive of probable atelectasis. Pneumonitis could appear similarly. 4. Hiatal hernia with mild distal esophageal wall thickening. 10/17/21 US gallbladder Urgent IMPRESSION: Gallbladder wall edema with no evidence of stones and negative Gutiérrez's sign. Findings are equivocal for acute cholecystitis. If there is clinical concern, nuclear medicine HIDA scan could be performed. Hospital Course (1) Acute blood loss anemia: Vijay Stout is an 86 year old female admitted to [facility] from October 16 to 2021 due to nausea, vomiting and diarrhea. She was diagnosed with new onset atrial fibrillation with rapid ventricular rate with associated hypotension. She was managed by cardiology and treated with intravenous amiodarone and switched to oral amiodarone during her hospital stay - on 200mg BID on discharge. She was also treated with metoprolol to reduce her heart rate. She was started on anticoagulation however this led to a gastrointestinal bleed in the setting of her also not receiving her usual usual omeprazole every other day. Anticoagulation was discontinued and she underwent endoscopy evaluation for this on October 25 which showed 3 nonbleeding cratered duodenal ulcers. This was treated with intravenous pantoprazole during her hospitalization and hemoglobin stable following 2 unit packed red blood cells. Given she has a plentiful supple of omeprazole at home will continue on this but increased frequency to twice a day. She should follow up with gastroenterology for ongoing management of this. Due to this acute GI bleed her anticoagulation was discontinued during hospitalization but recommend resuming this on your follow-up appointment in approximately 1 week with Mayte as long as your symptoms do not return and your hemoglobin is stable - she was advised to follow up with her PCP for initiation of this. Due to mild hypervolemic state and requiring Lasix during her hospitalization recommend ongoing Lasix with 20 mg p.o. daily on discharge per last cardiology note. This medication will replace her usual hydrochlorothiazide. She was also treated for a possible bacterial infection with Unasyn due to elevated procalcitonin, leukocytosis and mild CXR changes. Unclear if she had a viral gastroenteritis leading to dehydration increasing the risk of atrial fibrillation or a true bacterial infection. There was some concern of a gallbladder infection due to CT imaging and elevated liver transaminases however given no abdominal pain this was not suspected. Antibiotics were completed duri ng her hospitalization. She should continue electrolyte replacement with potassium and magnesium as prescribed. Consider monitoring labs for this. (2) Atrial fibrillation with RVR: (3) Dyslipidemia: (4) Esophageal reflux: (5) Hypertension: (6) Prediabetes: (7) Spinal stenosis, lumbar: Total Time Total Time Spent Total Time Spent (In Minutes): 50 Discharge Plan Discharge Items Patient Disposition: Home - Home Health Services Reason For Visit: AFIB RVR, URI SX Discharge Diagnosis: Atrial fibrillation with rapid ventricular rate Possible viral gastroenteritis Possible pneumonia Acute GI bleed on Eliquis and off omeprazole Activity: Resume your previous activity Non-emergency contact: Primary Care Provider Call non-emergency contact if: you have any medication questions and your symptoms worsen Follow-up/Referrals: Karlos Lopez PA-C [Physician Interior Block Wirer] - 11/10/21 4:00 pm Saige Fletcher PA-C [Physician Interior Block Wirer] - 10/31/21 2:00 pm José Antonio Liz PA-C [Physician Interior Block Wirer] - 12/23/21 9:40 am Diet: Regular Addtl Attending Provider Instructions: You were admitted to [facility] from October 16 to 2021 due to nausea vomiting and diarrhea. You were noted to have an abnormal heart rhythm called atrial fibrillation on arrival with elevated heart rates and low blood pressure. This was treated with intravenous amiodarone and switch to oral amiodarone during your hospital stay. You were also treated with metoprolol to reduce your heart rate. Please continue on amiodarone 200 mg twice a day and metoprolol tartrate 50 mg p.o. twice daily as prescribed below until follow-up with your assistant corporate controller. This rhythm increases your stroke risk therefore you were started on anticoagulation however this led to a gastrointestinal bleed in the setting of you also not being prescribed your usual omeprazole every other day. You underwent endoscopy evaluation for this on October 25 which showed 3 nonbleeding cratered duodenal ulcers. This is treated with pantoprazole during her hospitalization and given your previously on omeprazole recommend continuing this but taking twice a day as prescribed below. Please follow-up with gastroenterology for ongoing management of this. Due to this acute GI bleed your anticoagulation was discontinued during hospitalization but recommend resuming this on your follow-up appointment as long as your symptoms do not return and your hemoglobin is stable - please follow-up with your primary care physician regarding this. Due to significant swelling you were treated with Lasix during admission and recommend ongoing Lasix with 20 mg p.o. daily on discharge. This medication will replace your usual hydrochlorothiazide. You were treated for a possible bacterial infection with Unasyn (antibiotic). Unclear if you had a viral gastroenteritis leading to dehydration increasing the risk of atrial fibrillation or a true bacterial infection. There was some concern of a gallbladder infection due to CT imaging and elevated liver transaminases however given no abdominal pain this was not suspected. Please continue electrolyte replacement with potassium and magnesium as prescribed. This should help keep your heart in a normal sinus rhythm in addition to medications above. Pending Studies at Discharge: No Stand-Alone Forms: My [facility], Smoking Cessation Medications and DC Order Prescriptions: Continued simvastatin 20 mg tablet 20 mg PO DAILY Qty: 90 3RF Label Comments: HS cholecalciferol (vitamin D3) 2,000 unit capsule 2,000 units PO QAM omega-3 fatty acids 1,000 mg Capsule 1,000 mg PO DAILY calcium carbonate 500 mg calcium (1,250 mg) Tablet 500 mg PO DAILY estradiol [Climara] 0.025 mg/24 hr patch weekly 1 patch transdermal WK Rx Instructions: CHANGES ON SUNDAYS, PT HAS OWN PATCH WITH HER FOR 10/16/21. Discontinued lisinopril 5 mg tablet 5 mg PO DAILY Qty: 90 3RF Label Comments: QAM hydrochlorothiazide 12.5 mg capsule 12.5 mg PO DAILY Qty: 90 3RF Label Comments: QAM omeprazole magnesium 20 mg tablet,delayed release (DR/EC) 20 mg PO Q OTHER DAY No Action amiodarone 200 mg tablet 200 mg PO BIDM Qty: 180 1RF potassium chloride 20 mEq tablet,ER particles/crystals 20 meq PO QAM Qty: 90 1RF magnesium oxide 400 mg (241.3 mg magnesium) tablet 400 mg PO QAM Qty: 90 1RF metoprolol tartrate 50 mg tablet 50 mg PO BID Qty: 180 1RF furosemide [Lasix] 20 mg tablet 20 mg PO DAILY Qty: 90 1RF omeprazole magnesium 20 mg tablet,delayed release (DR/EC) 20 mg PO BID Qty: 180 1RF Discharge Orders: Discharge Order (Routine); Ordered 10/28/21 Ordered By: Ezra Luna Admission Data Admit Date/Time: 10/16/21 15:15 Attending Provider: Ezra Luna Admit Provider: Guerrero Harvey Primary Care Provider: Tripp Ortega Other Providers: Guerrero Harvey ; Wing Miller ; Evans Colon [facility] ; Case,Travis G. Other Interventions: Discharge Summary Assessment (RN) Last Done: 10/28/21 16:32 Coding Level of Care Code D/C DAY MANAGEMENT >30 MINS Diagnoses Acute blood loss anemia D62 Atrial fibrillation with RVR I48.91 Dyslipidemia E78.5 Esophageal reflux K21.9 Hypertension I10 Prediabetes R73.03 Spinal stenosis, lumbar M48.061
[2021-10-28] MEDS ORDERED: AMIODARONE 200 MG TAB PO SCH (17:00)
== END 2021-10-28 18:25 | disposition home health service (06) | DRG 308 ==
LOC: ED 11:24 → EDINP 15:15 → SUATTDRO 15:15 → EDINP 20:07 → 2E 20:38

== ENCOUNTER 2022-08-23 13:33 | Observation (INO) ==
--- NOTE | 2022-08-23 14:24 | Emergency Department Note ---
Impression & Plan TIA (transient ischemic attack), Stroke-like symptom ED Provider Note NAME: HOANG BENJAMIN AGE: 87 SEX: F : 1935 ARRIVES VIA: Walk-In INFORMANT: Patient, ED PROVIDER(S): Tripp Suggs DO CHIEF COMPLAINT: Strokelike symptoms HPI: The patient is an 87-year-old female who presented to the emergency department for strokelike symptoms. 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 She noticed a numbness in her left upper extremity. It started in her hand but then worked its way up her arm. She also felt some symptoms in her left jaw. She states that the symptoms did not last very long and resolved completely prior to arrival but she presented to the emergency department for further evaluation. She denies having any headache at this time. She denies having any neck pain. She does have a history of atrial fibrillation. She does take anticoagulation and states that she is been compliant with her outpatient medications. She denies having any other weakness. She denies having any dizzy or nausea ROS: See above HPI for pertinent positives & negatives. A total of 10 systems reviewed and were otherwise negative. PAST MEDICAL HISTORY: See Below PAST SURGICAL HISTORY: See Below FAMILY HISTORY: See Below SOCIAL HISTORY: See Below HOME MEDICATIONS: See Below ALLERGIES: See Below VITALS: See Below PHYSICAL EXAMINATION: GENERAL: Patient is awake alert in no acute distress patient is resting comfortably and showing no signs of anxiety EYES: The conjunctivae are clear. The pupils are round and reactive. EARS, NOSE, MOUTH AND THROAT: The nose is without any evidence of any deformity. NECK: The neck is nontender and supple. RESPIRATORY: Normal respiratory effort is noted there is no evidence of wheezing rhonchi or rales CARDIOVASCULAR: Regular rate and rhythm noted there no murmurs rubs or gallops normal S1 normal S2. GASTROINTESTINAL: The abdomen is soft. Abdomen is nontender. MUSCULOSKELETAL/EXTREMITIES: There is no evidence of gross deformity full range of motion is noted in the hips and shoulders. SKIN: There is no obvious evidence of any rash. There are no petechiae, pallor or cyanosis noted. NEUROLOGIC: Patient is awake alert and oriented x3. Strength was symmetric. There is no facial droop. Speech was clear. Patient is able to hold each leg off the bed for greater than 5 seconds MEDICAL DECISION MAKING: The patient is an 87-year-old female who presented to the emergency department for an evaluation of strokelike symptoms. The patient had an acute onset of the left upper extremity strokelike symptoms including numbness. This appeared to involve the left side of her face as well. The patient did not have ongoing symptoms and presented to the emergency department without any neurologic deficits. I discussed the patient's laboratory and radiographic studies with her. She is at high risk for this to be a TIA. I discussed further work-up with her and her family member including MRI of the brain and echocardiogram. She has a history of paroxysmal atrial fibrillation but does take blood thinners. She did not does not appear to have carotid artery disease or cerebral artery disease. Given her comfort level with an outpatient work-up I discussed her condition with the on-call [facility] hospitalist. They have agreed to evaluate the patient in the emergency department for further management and disposition. Triage Nursing notes reviewed. Prior medical records reviewed Vital Signs: reviewed and remarkable for no significant abnormalities Differential diagnosis: Infection, dehydration, metabolic abnormality, hypo/hyperglycemia, electrolyte disturbance, anemia, hypoxia, cardiac sources, intracerebral event, toxicologic, neurologic, as well as other pathologies. ER treatment provided: See below Diagnostics interpreted by me: ECG: EKG was obtained in the emergency department. My interpretation is sinus rhythm at 84 bpm. First-degree AV block was noted. LVH was suggested by voltage criteria. This was compared to a tracing from October 21, 2021. Sinus rhythm has replaced atrial fibrillation compared to the earlier tracing Cardiac Monitoring: An order was placed for continuous cardiac monitoring. The monitor shows a rate of 73 bpm with sinus rhythm. Laboratory studies: As stated above and show below. Imaging studies: See below. Radiographic imaging was reviewed by myself Consultation(s): I discussed this case with Dr. Luna who is [facility] Past Med/Surg History Medical History Diverticulosis Dyslipidemia Esophageal reflux History of cardiac murmur Hx of migraines OCCULAR MIGRAINES Hypertension Osteopenia Prediabetes SNHL (sensorineural hearing loss) Spinal stenosis, lumbar Surgical History H/O oophorectomy H/O sinus surgery H/O tooth extraction History of anesthesia reaction HAS WOKEN UP IN MIDDLE OF COLONOSCOPIES History of cataract surgery LEFT History of colonoscopy History of esophagogastroduodenoscopy (EGD) History of hysterectomy History of tonsillectomy and adenoidectomy Family History Brother Colon cancer Cancer of unknown origin Sister Pancreatic cancer Pancreatic carcinoma Mother Diabetes Cardiac disorder Myocardial infarction Hypertension Father Hypertension Stroke Other No family history of adverse response to anesthesia Denies family history of Ovarian cancer Prostate cancer Breast cancer Social History Smoking Status: Never smoker Second Hand Exposure: No; Do You Dip or Chew Tobacco: No; Hx Alcohol Use: No Hx Substance Use: No Preferred Language: Macanese Communication Ability: Effective Visual Impairment: No Limitations Hearing Ability: Normal Party Plan Selling Distributor Required: No Beliefs That Will Affect Care: None marital status: Single Current Living Situation: Alone Current Living Situation Comment: LIVES INDEP. APARTMENT FOR SENIORS>[facility] current occupational status: retired How many Children do You have: 1 Feels Safe at Home: Yes Childhood Exposure to Second-Hand Smoke: No Dental Care, Regularly: Yes Physical Activity Frequency: 3-4 Times per Week Seatbelt Use: always Sunscreen Use: No Assistive Devices: Cane Allergies Allergies Allergy/AdvReac Type Severity Reaction Status Date / Time No Known Drug Allergies Allergy Verified 07/03/22 16:01 Home Meds Previous Rx's Medication Instructions Recorded apixaban 2.5 mg tablet (Eliquis) 2.5 mg PO BID #180 tabs 11/02/21 simvastatin 20 mg tablet 20 mg PO DAILY #90 tabs 02/06/22 omeprazole 40 mg capsule,delayed 40 mg PO BID #180 caps 03/27/22 release metoprolol tartrate 50 mg tablet 50 mg PO BID #180 tabs 04/06/22 estradiol 0.025 mg/24 hr weekly 1 patch transdermal WK #12 ea 08/09/22 transdermal patch (Climara) Results & Data (ED) Vital Signs Vital Signs - 24 hr 08/23/22 13:43 08/23/22 14:56 08/23/22 15:09 Temperature 36.4 C L Temperature Source Temporal Artery Scan Pulse Rate 105 H 88 85 Pulse Rate from SpO2 Sensor Respiratory Rate 18 18 Respiratory Effort / Characteristics Non-Labored Spontaneous Respiratory Depth Normal Respiratory Pattern Regular Blood Pressure 166/90 H 144/99 H Blood Pressure Mean 115 114 Pulse Oximetry 96 99 Oxygen Delivery Method Room Air Room Air Sepsis Recent Fever Within 48 Hours No Sepsis New/Unexplained Change in Mental Status No Sepsis Action Taken by Nursing No Action Required 08/23/22 15:10 08/23/22 15:20 08/23/22 15:30 Temperature Temperature Source Pulse Rate 87 82 81 Pulse Rate from SpO2 Sensor 84 81 76 Respiratory Rate 18 21 19 Respiratory Effort / Characteristics Respiratory Depth Respiratory Pattern Blood Pressure Blood Pressure Mean Pulse Oximetry 95 95 94 Oxygen Delivery Method Sepsis Recent Fever Within 48 Hours Sepsis New/Unexplained Change in Mental Status Sepsis Action Taken by Nursing 08/23/22 15:31 08/23/22 15:31 08/23/22 15:56 Temperature Temperature Source Pulse Rate 86 88 Pulse Rate from SpO2 Sensor 85 89 Respiratory Rate 16 18 Respiratory Effort / Characteristics Respiratory Depth Respiratory Pattern Blood Pressure 133/71 Blood Pressure Mean 99 Pulse Oximetry 94 97 Oxygen Delivery Method Sepsis Recent Fever Within 48 Hours Sepsis New/Unexplained Change in Mental Status Sepsis Action Taken by Nursing 08/23/22 16:00 08/23/22 16:01 08/23/22 16:01 Temperature Temperature Source Pulse Rate 93 H 84 Pulse Rate from SpO2 Sensor 90 84 Respiratory Rate 16 18 Respiratory Effort / Characteristics Respiratory Depth Respiratory Pattern Blood Pressure 149/84 H Blood Pressure Mean 110 Pulse Oximetry 97 99 Oxygen Delivery Method Sepsis Recent Fever Within 48 Hours Sepsis New/Unexplained Change in Mental Status Sepsis Action Taken by Nursing 08/23/22 16:10 08/23/22 16:20 08/23/22 16:30 Temperature Temperature Source Pulse Rate 85 83 Pulse Rate from SpO2 Sensor 85 82 Respiratory Rate 20 25 H Respiratory Effort / Characteristics Respiratory Depth Respiratory Pattern Blood Pressure 134/98 Blood Pressure Mean 107 Pulse Oximetry 98 98 Oxygen Delivery Method Sepsis Recent Fever Within 48 Hours Sepsis New/Unexplained Change in Mental Status Sepsis Action Taken by Nursing 08/23/22 16:30 08/23/22 19:10 Temperature Temperature Source Pulse Rate 84 73 Pulse Rate from SpO2 Sensor 83 Respiratory Rate 25 H Respiratory Effort / Characteristics Respiratory Depth Respiratory Pattern Blood Pressure Blood Pressure Mean Pulse Oximetry 97 Oxygen Delivery Method Sepsis Recent Fever Within 48 Hours Sepsis New/Unexplained Change in Mental Status Sepsis Action Taken by Assisted Medications Current Medication List: was personally reviewed by me Laboratory Data Attestation: I reviewed the patient's lab results. 08/23/22 14:10 08/23/22 14:10 Lab Results 08/23/22 08/23/22 08/23/22 Range/Units 14:10 14:10 14:10 WBC 8.45 (4.8-10.8) K/ul RBC 3.89 L (4.20-5.40) M/uL Hgb 12.2 (12.0-16.0) g/dl Hct 35.9 L (37.0-47.0) % MCV 92.3 (80.0-100.0) fL MCH 31.4 (25.0-34.0) pg MCHC 34.0 (32.0-36.0) g/dL RDW Std Deviation 45.1 (36.4-46.3) fL RDW Coeff of Akiko 13.4 (11.5-14.5) % Plt Count 367 (130-400) K/uL MPV 9.6 (9.4-12.4) fL Immature Gran % (Auto) 0.7 % Neut % (Auto) 71.7 % Lymph % (Auto) 20.0 % Kaufman % (Auto) 6.4 % Eos % (Auto) 0.8 % Baso % (Auto) 0.4 % Neut # (Auto) 6.06 (1.40-6.50) K/uL Lymph # (Auto) 1.69 (1.2-3.4) K/uL Kaufman # (Auto) 0.54 (0.11-0.59) K/uL Eos # (Auto) 0.07 (0-0.50) K/uL Baso # (Auto) 0.03 (0-0.2) K/uL Immature Gran # (Auto) 0.06 (0.01-0.20) K/uL PT 10.3 (9.0-12.0) Seconds INR 0.9 (0.9-1.1) APTT 22.7 (21.0-31.0) Seconds PTT Ratio 0.8 Sodium 140 (136-145) mmol/L Potassium 3.6 (3.5-5.1) mmol/L Chloride 105 (98-107) mmol/L Carbon Dioxide 24 (21-32) mmol/L Anion Gap 11 (3-11) BUN 26 H (6-23) mg/dl Creatinine 1.24 H (0.6-1.2) mg/dl Est Cr Clr Drug Dosing 32.0 ml/min Est GFR ( Amer) 44.6 ml/min Est GFR (Non-Af Amer) 38.5 ml/min BUN/Creatinine Ratio 21.0 H (10-20) Glucose 150 H (70-99(Fasting)) mg/dl POC Glucose (70-99) mg/dl Calcium 9.3 (8.6-10.3) mg/dl Magnesium 1.7 (1.7-2.4) mg/dl Total Bilirubin 0.3 (0.2-1.0) mg/dl AST 17 (13-39) U/L ALT 15 (7-52) U/L Alkaline Phosphatase 84 (34-104) U/L Troponin I High Sens 6.7 (0-14) pg/ml Total Protein 7.5 (6.0-8.3) gm/dl Albumin 4.3 (3.4-5.0) gm/dl Globulin 3.2 (2.5-4.0) gm/dl Albumin/Globulin Ratio 1.3 (0.9-2) / Range/Units 15:03 WBC (4.8-10.8) K/ul RBC (4.20-5.40) M/uL Hgb (12.0-16.0) g/dl Hct (37.0-47.0) % MCV (80.0-100.0) fL MCH (25.0-34.0) pg MCHC (32.0-36.0) g/dL RDW Std Deviation (36.4-46.3) fL RDW Coeff of Akiko (11.5-14.5) % Plt Count (130-400) K/uL MPV (9.4-12.4) fL Immature Gran % (Auto) % Neut % (Auto) % Lymph % (Auto) % Kaufman % (Auto) % Eos % (Auto) % Baso % (Auto) % Neut # (Auto) (1.40-6.50) K/uL Lymph # (Auto) (1.2-3.4) K/uL Kaufman # (Auto) (0.11-0.59) K/uL Eos # (Auto) (0-0.50) K/uL Baso # (Auto) (0-0.2) K/uL Immature Gran # (Auto) (0.01-0.20) K/uL PT (9.0-12.0) Seconds INR (0.9-1.1) APTT (21.0-31.0) Seconds PTT Ratio Sodium (136-145) mmol/L Potassium (3.5-5.1) mmol/L Chloride (98-107) mmol/L Carbon Dioxide (21-32) mmol/L Anion Gap (3-11) BUN (6-23) mg/dl Creatinine (0.6-1.2) mg/dl Est Cr Clr Drug Dosing ml/min Est GFR ( Amer) ml/min Est GFR (Non-Af Amer) ml/min BUN/Creatinine Ratio (10-20) Glucose (70-99(Fasting)) mg/dl POC Glucose 118 H (70-99) mg/dl Calcium (8.6-10.3) mg/dl Magnesium (1.7-2.4) mg/dl Total Bilirubin (0.2-1.0) mg/dl AST (13-39) U/L ALT (7-52) U/L Alkaline Phosphatase (34-104) U/L Troponin I High Sens (0-14) pg/ml Total Protein (6.0-8.3) gm/dl Albumin (3.4-5.0) gm/dl Globulin (2.5-4.0) gm/dl Albumin/Globulin Ratio (0.9-2) Administered Medications Discontinued Medications Ioversol (Optiray 320 500ml) 111 ml IV ONCE ONE Stop: 08/23/22 15:48 Last Admin: 08/23/22 15:48 Dose: 111 ml Documented By: ANA CRISTINA Imaging Data Attestation: I personally reviewed and interpreted this imaging study as follows: My Impression: 1 view chest x-ray was obtained in the emergency department. My interpretation is no free air or infiltrate, final report below. CT of the brain was obtained in the emergency department. My interpretation is no intracranial hemorrhage or mass effect, final report below. Radiologist's Impression: Chest X-Ray 08/23/22 14:16 XR chest 1V portable CLINICAL HISTORY: neuro deficit, acute stroke suspected COMPARISON STUDY: Chest CT October 16, 2021. Chest radiograph October 19, 2021. FINDINGS: Lung volumes are normal. Lungs are clear. There is no pneumothorax or pleural effusion. Cardiomegaly is unchanged. Mediastinal contours are normal. There is no evidence for pulmonary edema. IMPRESSION: No acute cardiopulmonary findings. Stable cardiomegaly. ACT 112: Negative or not required by law. Electronically signed by: Mac Dimas M.D. 08/23/2022 2:[address] 08/23/22 14:16 CT angio neck with con, CT angio head w con, CT head/brain wo con CLINICAL HISTORY: neuro deficit, acute stroke suspected TECHNIQUE: Contiguous axial CT images of the head were acquired from the base of the skull to the vertex without intravenous contrast administration. CT angiography of the head and neck was performed following intravenous administration of iodinated contrast. Coronal and sagittal MIPS were obtained from the axial data set and were submitted for review. Automated dose lowering techniques and/or adjustment according to patient size were utilized for this examination. All measurements were calculated based on NASCET criteria. CT DOSE: 984.03 mGy.cm Comparison: None available at the time of this dictation. FINDINGS: CT head: There is no acute intracranial hemorrhage or evidence of acute territorial infarction. No shift of the midline structures, mass effect, or extra-axial abnormalities are shown. 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 Biapical emphysema is seen. Subcentimeter thyroid nodules are seen which do not require follow-up by ACR criteria. Asymmetric prominence of the left thyroid gland is noted. CTA Neck: A 3 vessel aortic arch is shown. There is no significant athero sclerotic plaque in the aortic arch or the origins of the innominate, left common carotid, and left subclavian arteries. The common carotid, external carotid, cervical segments of the internal carotid arteries, and the cervical segments of the vertebral arteries are patent without hemodynamically s ignificant stenosis. The left vertebral artery is dominant. CTA Head: The anterior and posterior cerebral circulations are patent. No hemodynamically significant stenosis, aneurysm, dissection, or arteriovenous malformation is shown. IMPRESSION: 1. No acute intracranial hemorrhage, evidence of acute territorial infarction, or other acute intracranial disease process. 2. No occlusion, hemodynamically significant stenosis, or dissection in the major cervical arteries. 3. No occlusion, hemodynamically significant stenosis, aneurysm, dissection, or arteriovenous malformation in the major intracranial arteries. Assessment of stenosis of the internal carotid arteries is based on NASCET criteria. ACT 112: Negative or not required by law. Electronically signed by: Paul Concepcion M.D. 08/23/2022 4:13 PM Head CTA 08/23/22 14:16 CT angio neck with con, CT angio head w con, CT head/brain wo con CLINICAL HISTORY: neuro deficit, acute stroke suspected TECHNIQUE: Contiguous axial CT images of the head were acquired from the base of the skull to the vertex without intravenous contrast administration. CT angiography of the head and neck was performed following intravenous administration of iodinated contrast. Coronal and sagittal MIPS were obtained from the axial data set and were submitted for review. Automated dose lowering techniques and/or adjustment according to patient size were utilized for this examination. All measurements were calculated based on NASCET criteria. CT DOSE: 984.03 mGy.cm Comparison: None available at the time of this dictation. FINDINGS: CT head: There is no acute intracranial hemorrhage or evidence of acute territorial infarction. No shift of the midline structures, mass effect, or extra-axial abnormalities are shown. 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 Biapical emphysema is seen. Subcentimeter thyroid nodules are seen which do not require follow-up by ACR criteria. Asymmetric prominence of the left thyroid gland is noted. CTA Neck: A 3 vessel aortic arch is shown. There is no significant atheroscler otic plaque in the aortic arch or the origins of the innominate, left common carotid, and left subclavian arteries. The common carotid, external carotid, cervical segments of the internal carotid arteries, and the cervical segments of the vertebral arteries are patent without hemodynamically significant stenosis. The left vertebral artery is dominant. CTA Head: The anterior and posterior cerebral circulations are patent. No hemodynamically significant stenosis, aneurysm, dissection, or arteriovenous malformation is shown. IMPRESSION: 1. No acute intracranial hemorrhage, evidence of acute territorial infarction, or other acute intracranial disease process. 2. No occlusion, hemodynamically significant stenosis, or dissection in the major cervical arteries. 3. No occlusion, hemodynamically significant stenosis, aneurysm, dissection, or arteriovenous malformation in the major intracranial arteries. Assessment of stenosis of the internal carotid arteries is based on NASCET criteria. ACT 112: Negative or not required by law. Electronically signed by: Paul Concepcion M.D. 08/23/2022 4:13 PM Neck CTA 08/23/22 14:16 CT angio neck with con, CT angio head w con, CT head/brain wo con CLINICAL HISTORY: neuro deficit, acute stroke suspected TECHNIQUE: Contiguous axial CT images of the head were acquired from the base of the skull to the vertex without intravenous contrast administration. CT angiography of the head and neck was performed following intravenous ad ministration of iodinated contrast. Coronal and sagittal MIPS were obtained from the axial data set and were submitted for review. Automated dose lowering techniques and/or adjustment according to patient size were utilized for this examination. All measurements were calculated based on NASCET criteria. CT DOSE: 984.03 mGy.cm Comparison: None available at the time of this dictation. FINDINGS: CT head: There is no acute intracranial hemorrhage or evidence of acute territorial infarction. No shift of the midline structures, mass effect, or extra-axial abnormalities are shown. 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 Biapical emphysema is seen. Subcentimeter thyroid nodules are seen which do not require follow-up by ACR criteria. Asymmetric prominence of the left thyroid gland is noted. CTA Neck: A 3 vessel aortic arch is shown. There is no significant atherosclerotic plaque in the aortic arch or the origins of the innominate, left common carotid, and left subclavian arteries. The common carotid, external carotid, cervical segments of the internal carotid arteries, and the cervical segments of the vertebral arteries are patent without hemodynamically significant stenosis. The left vertebral artery is dominant. CTA Head: The anterior and posterior cerebral circulations are patent. No hemodynamically significant stenosis, aneurysm, dissection, or arteriovenous malformation is shown. IMPRESSION: 1. No acute intracranial hemorrhage, evidence of acute territorial infarction, or other acute intracranial disease process. 2. No occlusion, hemodynamically significant stenosis, or dissection in the major cervical arteries. 3. No occlusion, hemodynamically significant stenosis, aneurysm, dissection, or arteriovenous malformation in the major intracranial arteries. Assessment of stenosis of the internal carotid arteries is based on NASCET radha albert. ACT 112: Negative or not required by law. Electronically signed by: Paul Concepcion M.D. 08/23/2022 4:13 PM Discharge Plan Visit Data Chief Complaint: Neuro Symptoms/Deficit Stated Complaint: LEFT SIDE NUMBNESS ED Provider: Tripp Suggs Discharge Problem: TIA (transient ischemic attack), Stroke-like symptom Patient Disposition: Admitted As Inpatient Condition: Good Discharge Instructions Trace/Other Patient Handouts: ED TIA: Transient Ischemic Attack Activity Restrictions/Additional Instructions: Continue all medications as prescribed. You should consider taking baby aspirin every morning. Call your family doctor to schedule follow-up appointment. You may require further testing such as an MRI of the brain or possibly an ec hocardiogram to further evaluate cause your symptoms. Return the emergency department immediately by ambulance if symptoms return or if the need arises. Forms Stand Alone Forms: [facility], Virtual Emergency Department, Important Visit Information Prescriptions Prescriptions: No Action Eliquis 2.5 mg tablet 2.5 mg PO BID Qty: 180 3RF simvastatin 20 mg tablet 20 mg PO DAILY Qty: 90 3RF Patient Comments: HS omeprazole 40 mg capsule,delayed release(DR/EC) 40 mg PO BID Qty: 180 3RF metoprolol tartrate 50 mg tablet 50 mg PO BID Qty: 180 1RF estradiol [Climara] 0.025 mg/24 hr patch weekly 1 patch transdermal WK Qty: 12 3RF Rx Instructions: CHANGES ON SUNDAYS, Referrals Referrals: Pk Andrade DO [Primary Care Provider] -
[2022-08-23 14:45] LABS: Basophils # (auto) 0.03 K/uL (0-0.2); Basophils % (auto) 0.4 %; Eosinophils # (auto) 0.07 K/uL (0-0.50); Eosinophils % (auto) 0.8 %; Hematocrit (blood only) 35.9 % (37.0-47.0); Hemoglobin 12.2 g/dl (12.0-16.0); Immature Granulocytes # (auto) 0.06 K/uL (0.01-0.20); Immature Granulocytes % (auto) 0.7 %; Lymphocytes # (auto) 1.69 K/uL (1.2-3.4); Mean Corpuscular Hemoglobin 31.4 pg (25.0-34.0); Mean Corpuscular Volume 92.3 fL (80.0-100.0); Mean Platelet Volume 9.6 fL (9.4-12.4); Monocytes # (auto) 0.54 K/uL (0.11-0.59); Monocytes % (auto) 6.4 %; Neutrophils # (auto) 6.06 K/uL (1.40-6.50); Neutrophils % (auto) 71.7 %; Platelet Count 367 K/uL (130-400); RDW Coefficient of Variation 13.4 % (11.5-14.5); RDW Standard Deviation 45.1 fL (36.4-46.3); Red Blood Count 3.89 M/uL (4.20-5.40); White Blood Count 8.45 K/ul (4.8-10.8)
--- NOTE | 2022-08-23 14:52 | XRay Report ---
XR chest 1V portable CLINICAL HISTORY: neuro deficit, acute stroke suspected COMPARISON STUDY: Chest CT October 16, 2021. Chest radiograph October 19, 2021. FINDINGS: Lung volumes are normal. Lungs are clear. There is no pneumothorax or pleural effusion. Car diomegaly is unchanged. Mediastinal contours are normal. There is no evidence for pulmonary edema. IMPRESSION: No acute cardiopulmonary findings. Stable cardiomegaly. ACT 112: Negative or not required by law. Electronically signed by: Mac Dimas M.D. 08/23/2022 2:51 PM
[2022-08-23 15:02] LABS: Albumin Globulin Ratio 1.3 (0.9-2); Albumin Level 4.3 gm/dl (3.4-5.0); Bilirubin,Total 0.3 mg/dl (0.2-1.0); Calcium 9.3 mg/dl (8.6-10.3); Est GFR (African American) 44.6 ml/min; Est GFR (Non-African American) 38.5 ml/min; Globulin 3.2 gm/dl (2.5-4.0); Magnesium 1.7 mg/dl (1.7-2.4); Potassium 3.6 mmol/L (3.5-5.1); Total Protein 7.5 gm/dl (6.0-8.3)
[2022-08-23 15:09] LABS: Troponin I High Sensitivity 6.7 pg/ml (0-14)
[2022-08-23 15:14] LABS: INR 0.9 (0.9-1.1); Partial Thromboplastin Ratio 0.8; Partial Thromboplastin Time 22.7 Seconds (21.0-31.0); Prothrombin Time 10.3 Seconds (9.0-12.0)
[2022-08-23] MEDS ORDERED: OPTIRAY 320 500ml IV ONE (15:47)
--- NOTE | 2022-08-23 16:14 | CT Scan Report ---
CT angio neck with con, CT angio head w con, CT head/brain wo con CLINICAL HISTORY: neuro deficit, acute stroke suspected TECHNIQUE: Contiguous axial CT images of the head were acquired from the base of the skull to the celio wanda without intravenous contrast administration. CT angiography of the head and neck was performed f ollowing intravenous administration of iodinated contrast. Coronal and sagittal MIPS were obtained fr om the axial data set and were submitted for review. Automated dose lowering techniques and/or adjus tment according to patient size were utilized for this examination. All measurements were calculated based on NASCET criteria. CT DOSE: 984.03 mGy.cm Comparison: None available at the time of this dictation. FINDINGS: CT head: There is no acute intracranial hemorrhage or evidence of acute territorial infarction. No sh ift of the midline structures, mass effect, or extra-axial abnormalities are shown. 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 Biapical emphysema is seen. Subcentimeter thyroid nodules are seen which do not require follow-up by ACR criteria. Asymmetric prominence of the left thyroid gland is noted. CTA Neck: A 3 vessel aortic arch is shown. There is no significant atherosclerotic plaque in the aor tic arch or the origins of the innominate, left common carotid, and left subclavian arteries. The co mmon carotid, external carotid, cervical segments of the internal carotid arteries, and the cervical segments of the vertebral arteries are patent without hemodynamically significant stenosis. The left vertebral artery is dominant. CTA Head: The anterior and posterior cerebral circulations are patent. No hemodynamically significan t stenosis, aneurysm, dissection, or arteriovenous malformation is shown. IMPRESSION: 1. No acute intracranial hemorrhage, evidence of acute territorial infarction, or other acute intrac ranial disease process. 2. No occlusion, hemodynamically significant stenosis, or dissection in the major cervical arteries. 3. No occlusion, hemodynamically significant stenosis, aneurysm, dissection, or arteriovenous malfor mation in the major intracranial arteries. Assessment of stenosis of the internal carotid arteries is based on NASCET criteria. ACT 112: Negative or not required by law. Electronically signed by: Paul Concepcion M.D. 08/23/2022 4:13 PM
--- NOTE | 2022-08-23 18:11 | History & Physical Report ---
Date of Service August 23, 2022 Assessment & Plan (1) Stroke-like symptom: Plan: -Admit to med-tele -Currently stable and at her neurologic baseline -Unsure at this time if her LUE paresthesias were related to a TIA or musculoskeletal issues at this time -Labs and initial imaging are unremarkable -Will obtain MRI of the brain wo con and TTE for further evaluation -q4h neuro checks, PT/OT consults placed -Dysphagia screen prior to diet,then heart healthy diet -Continue Eliquis and statin -Will obtain am A1C and lipide panel -BL SCD's and Home Eliquis for DVT PPX -AM CBC, BMP, mag (2) Afib: Plan: -Currently in sinus rhythm -Continue Eliquis and metoprolol (3) Stage 3 chronic kidney disease: Plan: -At baseline, continue to monitor (4) Duodenal ulcer: Plan: -Continue BID PPI (5) Dyslipidemia: Plan: -Continue statin Plan The patient was discussed with Dr. Luna at the time of the admission History of Present Illness Chief Complaint: stroke-like symptoms Primary Care Provider: Pk Andrade DO Vijay is an 87 year old female with a PMH significant for afib on Eliquis, HTN, dyslipidemia, pre-diabetes, duodenal ulcer, and HFpEF who presented to the [facility] ED on 08/23/22 due to left hand/arm paresthesias. In the ED vitals were stable. Labs including CBC, CMP, and high sen trop were unremarkable. Chest xray, CT of the head, and CTA of the had/neck were read as no acute findings. We were asked to admit for ongoing TIA workup. At the time of the exam the patient was sitting in bed in no acute distress. She states that she was in her normal state of health when she woke this am. Around 11 am she was standing at her kitchen sink, washing dishes when she developed sudden onset of numbness on the dorsal aspect of her left hand. The numbness then moved proximally up her arm and into the left side of her neck. She denies any other neurologic symptoms or weakness when this occurred. She also denies recent chest pain, heart palpitations, SOB. The symptoms last for approximately 5 minutes and have not returned since. She denies ever having symptoms like this before. She took her medications as prescribed this am. She denies any recent fever, chills, abd pain, nausea, vomiting, dysuria, hematuria, urinary frequency, diarrhea, melena, LE swelling, and recent trauma. We discussed code status, at this time she wishes to be a full code as she is in good health and very independent. She would want her son to make medical decisions for her if she could not make them herself. Please refer to Dr. Luna's attestation for any changes to the treatment plan Allergies Allergy/AdvReac Type Severity Reaction Status Date / Time No Known Drug Allergies Allergy Verified 07/03/22 16:01 Home Medications Medication Instructions Recorded Confirmed Type apixaban 2.5 mg tablet (Eliquis) 2.5 mg PO BID #180 tabs 11/02/21 08/23/22 Rx simvastatin 20 mg tablet 20 mg PO DAILY #90 tabs 02/06/22 08/23/22 Rx omeprazole 40 mg capsule,delayed 40 mg PO BID #180 caps 03/27/22 08/23/22 Rx release metoprolol tartrate 50 mg tablet 50 mg PO BID #180 tabs 04/06/22 08/23/22 Rx estradiol 0.025 mg/24 hr weekly 1 patch transdermal WK #12 ea 08/09/22 08/23/22 Rx transdermal patch (Climara) Past Med/Surg History Medical History Diverticulosis Dyslipidemia Esophageal reflux History of cardiac murmur Hx of migraines OCCULAR MIGRAINES Hypertension Osteopenia Prediabetes SNHL (sensorineural hearing loss) Spinal stenosis, lumbar Surgical History H/O oophorectomy H/O sinus surgery H/O tooth extraction History of anesthesia reaction HAS WOKEN UP IN MIDDLE OF COLONOSCOPIES History of cataract surgery LEFT History of colonoscopy History of esophagogastroduodenoscopy (EGD) History of hysterectomy History of tonsillectomy and adenoidectomy Family History Brother Colon cancer Cancer of unknown origin Sister Pancreatic cancer Pancreatic carcinoma Mother Diabetes Cardiac disorder Myocardial infarction Hypertension Father Hypertension Stroke Other No family history of adverse response to anesthesia Denies family history of Ovarian cancer Prostate cancer Breast cancer Social History Smoking Status: Never smoker Second Hand Exposure: No; Do You Dip or Chew Tobacco: No; Hx Alcohol Use: No Hx Substance Use: No Preferred Language: [place] Zeal[place] Communication Ability: Effective Visual Impairment: No Limitations 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 APARTMENT FOR SENIORS>[facility] current occupational status: retired How many Children do You have: 1 Other Information That Helps Us Care for You: No Feels Safe at Home: Yes Safety Concerns: Feels Safe At This Time Childhood Exposure to Second-Hand Smoke: No Dental Care, Regularly: Yes Physical Activity Frequency: 3-4 Times per Week Seatbelt Use: always Sunscreen Use: No Assistive Devices: Cane Physical Exam Physical Exam: Physical Exam: General: In no acute distress, stated age, well-nourished, good hygiene HEENT: Normocephalic, atraumatic, no scleral icterus, pupils around round, symmetrical, and reactive to light, moist mucus membranes, trachea midline, no thyromegaly Chest/Pulm: No respiratory distress, symmetrical chest expansion, clear breath sounds throughout Cardiac: RRR, no murmurs noted Abdomen: Negative for ascites and bruising, normoactive bowel sounds, soft, non-tender to palpation throughout Musculoskeletal: No reproducible paresthesias of the LUE with Tinel's sign testing or palpation of the ulnar nerve, Symmetrical and without signs of acute trauma, upper and lower extremities with full ROM, no atrophy, spasticity, or flaccidity Extremities: Radial, dorsalis pedis, and posterior tibial pulses are intact and symmetrical, no edema noted in the BL LE's Skin: Warm, dry, no rashes , lesions, or scars noted Neuro: Alert and oriented to person, place, month, year, and president, no focal defects, CN II-XII tested and intact, finger to nose test negative, no tremors noted Psych: No acute distress, calm and cooperative during the exam Results & Data Results & Data Vital Signs (Past 12 Hours) Vital Signs Temp Pulse Resp BP Pulse Ox O2 Del Method 08/23/22 16:30 84 25 H 97 08/23/22 16:30 134/98 08/23/22 16:20 83 25 H 98 08/23/22 16:10 85 20 98 08/23/22 16:01 149/84 H 08/23/22 16:01 84 18 99 08/23/22 16:00 93 H 16 97 08/23/22 15:56 88 18 97 08/23/22 15:31 133/71 08/23/22 15:31 86 16 94 08/23/22 15:30 81 19 94 08/23/22 15:20 82 21 95 08/23/22 15:10 87 18 95 08/23/22 15:09 85 08/23/22 14:56 88 18 144/99 H 99 Room Air 08/23/22 13:43 36.4 C L 105 H 18 166/90 H 96 Room Air Laboratory Results Abnormal lab results 08/23/22 08/23/22 08/23/22 Range/Units 14:10 14:10 15:03 RBC 3.89 L (4.20-5.40) M/uL Hct 35.9 L (37.0-47.0) % BUN 26 H (6-23) mg/dl Creatinine 1.24 H (0.6-1.2) mg/dl BUN/Creatinine Ratio 21.0 H (10-20) Glucose 150 H (70-99(Fasting)) mg/dl POC Glucose 118 H (70-99) mg/dl Diagnostic Findings Chest X-Ray 08/23/22 14:16 XR chest 1V portable CLINICAL HISTORY: neuro deficit, acute stroke suspected COMPARISON STUDY: Chest CT October 16, 2021. Chest radiograph October 19, 2021. FINDINGS: Lung volumes are normal. Lungs are clear. There is no pneumothorax or pleural effusion. Cardiomegaly is unchanged. Mediastinal contours are normal. There is no evidence for pulmonary edema. IMPRESSION: No acute cardiopulmonary findings. Stable cardiomegaly. ACT 112: Negative or not required by law. Electronically signed by: Mac Dimas M.D. 08/23/2022 2:[address] 08/23/22 14:16 CT angio neck with con, CT angio head w con, CT head/brain wo con CLINICAL HISTORY: neuro deficit, acute stroke suspected TECHNIQUE: Contiguous axial CT images of the head were acquired from the base of the skull to the vertex without intravenous contrast administration. CT angiography of the head and neck was performed following intravenous administration of iodinated contrast. Coronal and sagittal MIPS were obtained from the axial data set and were submitted for review. Automated dose lowering techniques and/or adjustment according to patient size were utilized for this examination. All measurements were calculated based on NASCET criteria. CT DOSE: 984.03 mGy.cm Comparison: None available at the time of this dictation. FINDINGS: CT head: There is no acute intracranial hemorrhage or evidence of acute territorial infarction. No shift of the midline structures, mass effect, or extra-axial abnormalities are shown. 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 Biapical emphysema is seen. Subcentimeter thyroid nodules are seen which do not require follow-up by ACR criteria. Asymmetric prominence of the left thyroid gland is noted. CTA Neck: A 3 vessel aortic arch is shown. There is no significant atherosclerotic plaque in the aortic arch or the origins of the innominate, left common carotid, and left subclavian arteries. The common carotid, external carotid, cervical segments of the internal carotid arteries, and the cervical segments of the vertebral arteries are patent without hemodynamically significant stenosis. The left vertebral artery is dominant. CTA Head: The anterior and posterior cerebral circulations are patent. No hemodynamically significant stenosis, aneurysm, dissection, or arteriovenous malformation is shown. IMPRESSION: 1. No acute intracranial hemorrhage, evidence of acute territorial infarction, or other acute intracranial disease process. 2. No occlusion, hemodynamically significant stenosis, or dissection in the major cervical arteries. 3. No occlusion, hemodynamically significant stenosis, aneurysm, dissection, or arteriovenous malformation in the major intracranial arteries. Assessment of stenosis of the internal carotid arteries is based on NASCET criteria. ACT 112: Negative or not required by law. Electronically signed by: Paul Concepcion M.D. 08/23/2022 4:13 PM Head CTA 08/23/22 14:16 CT angio neck with con, CT angio head w con, CT head/brain wo con CLINICAL HISTORY: neuro deficit, acute stroke suspected TECHNIQUE: Contiguous axial CT images of the head were acquired from the base of the skull to the vertex without intravenous contrast administration. CT angiography of the head and neck was performed following intravenous administration of iodinated contrast. Coronal and sagittal MIPS were obtained from the axial data set and were submitted for review. Automated dose lowering techniques and/or adjustment according to patient size were utilized for this examination. All measurements were calculated based on NASCET criteria. CT DOSE: 984.03 mGy.cm Comparison: None available at the time of this dictation. FINDINGS: CT head: There is no acute intracranial hemorrhage or evidence of acute territorial infarction. No shift of the midline structures, mass effect, or extra-axial abnormalities are shown. 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 Biapical emphysema is seen. Subcentimeter thyroid nodules are seen which do not require follow-up by ACR criteria. Asymmetric prominence of the left thyroid gland is noted. CTA Neck: A 3 vessel aortic arch is shown. There is no significant atheros clerotic plaque in the aortic arch or the origins of the innominate, left common carotid, and left subclavian arteries. The common carotid, external carotid, cervical segments of the internal carotid arteries, and the cervical segments of the vertebral arteries are patent without hemodynamically significant stenosis. The left vertebral artery is dominant. CTA Head: The anterior and posterior cerebral circulations are patent. No hemodynamically significant stenosis, aneurysm, dissection, or arteriovenous malformation is shown. IMPRESSION: 1. No acute intracranial hemorrhage, evidence of acute territorial infarction, or other acute intracranial disease process. 2. No occlusion, hemodynamically significant stenosis, or dissection in the major cervical arteries. 3. No occlusion, hemodynamically significant stenosis, aneurysm, dissection, or arteriovenous malformation in the major intracranial arteries. Assessment of stenosis of the internal carotid arteries is based on NASCET criteria. ACT 112: Negative or not required by law. Electronically signed by: Paul Concepcion M.D. 08/23/2022 4:13 PM Neck CTA 08/23/22 14:16 CT angio neck with con, CT angio head w con, CT head/brain wo con CLINICAL HISTORY: neuro deficit, acute stroke suspected TECHNIQUE: Contiguous axial CT images of the head were acquired from the base of the skull to the vertex without intravenous contrast administration. CT angiography of the head and neck was performed following intravenous administration of iodinated contrast. Coronal and sagittal MIPS were obtained from the axial data set and were submitted for review. Automated dose lowering techniques and/or adjustment according to patient size were utilized for this examination. All measurements were calculated based on NASCET criteria. CT DOSE: 984.03 mGy.cm Comparison: None available at the time of this dictation. FINDINGS: CT head: There is no acute intracranial hemorrhage or evidence of acute territorial infarction. No shift of the midline structures, mass effect, or extra-axial abnormalities are shown. 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 Biapical emphysema is seen. Subcentimeter thyroid nodules are seen which do not require follow-up by ACR criteria. Asymmetric prominence of the left thyroid gland is noted. CTA Neck: A 3 vessel aortic arch is shown. There is no significant atherosclerotic plaque in the aortic arch or the origins of the innominate, left common carotid, and left subclavian arteries. The common carotid, external carotid, cervical segments of the internal carotid arteries, and the cervical segments of the vertebral arteries are patent without hemodynamically significant stenosis. The left vertebral artery is dominant. CTA Head: The anterior and posterior cerebral circulations are patent. No hemodynamically significant stenosis, aneurysm, dissection, or arteriovenous malformation is shown. IMPRESSION: 1. No acute intracranial hemorrhage, evidence of acute territorial infarction, or other acute intracranial disease process. 2. No occlusion, hemodynamically significant stenosis, or dissection in the major cervical arteries. 3. No occlusion, hemodynamically significant stenosis, aneurysm, dissection, or arteriovenous malformation in the major intracranial arteries. Assessment of stenosis of the internal carotid arteries is based on NASCET criteria. ACT 112: Negative or not required by law. Electronically signed by: Paul Concepcion M.D. 08/23/2022 4:13 PM ECG Additional Comments: Normal sinus rhythm Minimal voltage criteria for LVH, may be normal variant ( R in aVL ) Borderline ECG When compared with ECG of 21-OCT-2021 08:07, Sinus rhythm has replaced Atrial fibrillation Vent. rate has decreased BY 57 BPM Minimal criteria for Anterior infarct are no longer Present ST elevation now present in Lateral leads T wave inversion less evident in Inferior leads Nonspecific T wave abnormality no longer evident in Lateral leads Code Status & VTE Plan Code Status Full code VTE Prophylaxis Plan VTE Prophylaxis will be ordered: Yes Supervising Physician Co-Signing Physician Notes I personally saw and examined the patient. I verified all torres points and agree with Mayur Verma PA-C with the following exceptions and/or additions: 87 year old female present to the ER with now resolved left upper extremity and jaw numbness lasting approximately 5 minutes. O/E A&Ox3, HS RRR, no murmurs, Chest CTAB, Abdo SNT, PERRL, CN 2-> 12 intact, no pronator drift. All 4 extremities 5/5 throughout with no sensation loss. A/P Stroke-like symptoms - Patient already on Eliquis and given angiogram without significant vessel disease and unclear if symptoms TIA related no need for aspirin or increase in her usual statin at this time. Brain MRI and TTE ordered. No need for neurology consult unless brain MRI showing stroke. PG Care Time/CCT Total # of Minutes Spent Total Time Spent with Patient: Total time spent is greater than 50% in coordination of care (as documented) at patient's floor/unit and/or counseling patient: Coding [place] [address] INT INP/OBS CARE 3/75MIN Patient Type Established Medical Decision Making High Complexity Diagnoses Stroke-like symptom R29.90 Afib I48.91 Stage 3 chronic kidney disease N18.30 Duodenal ulcer K26.9 Dyslipidemia E78.5
[2022-08-23] MEDS ORDERED: PHARMACIST DISCHARGE MED REC CONSULT PRN (18:13)
[2022-08-23] MEDS ORDERED: diphenhydrAMINE 50 MG/ML VIAL IV ONE (20:00)
--- NOTE | 2022-08-23 22:38 | Magnetic Resonance Report ---
Exam(s): MRI HEAD Without Contrast EXAM: MR Head Without Intravenous Contrast CLINICAL HISTORY: Reason for exam: stroke workup. TECHNIQUE: Magnetic resonance images of the head/brain without intravenous contrast in multiple planes. Mild motion artifact. COMPARISON: None. FINDINGS: Brain: No mass-effect or acute infarct. No acute or chronic hemorrhage. Mild/moderate atrophy and chronic, nonspecific white matter disease. Ventricles: No hydrocephalus or midline shift. Bones/joints: No calvarial lesions. Soft tissues: No scalp hematoma. Sinuses: Clear. Mastoid air cells: No mastoid effusion. IMPRESSION: 1. Mild to moderate age-related findings. 2. No acute infarct, bleed, or acute intracranial abnormality. Electronically signed by: Miladys Castillo M.D. 08/23/22 22:38 PM
[2022-08-24] MEDS: METOPROLOL TARTRATE 50 MG TAB PO SCH ×2 (00:03→08:55)
[2022-08-24] MEDS: APIXABAN 2.5 MG TAB PO SCH ×2 (00:03→08:55)
[2022-08-24] MEDS: PANTOprazole 40 MG TAB PO SCH ×2 (00:03→08:55)
[2022-08-24 08:01] LABS: Basophils # (auto) 0.03 K/uL (0-0.2); Basophils % (auto) 0.5 %; Eosinophils # (auto) 0.06 K/uL (0-0.50); Eosinophils % (auto) 0.9 %; Hematocrit (blood only) 33.8 % (37.0-47.0); Hemoglobin 11.5 g/dl (12.0-16.0); Immature Granulocytes # (auto) 0.04 K/uL (0.01-0.20); Immature Granulocytes % (auto) 0.6 %; Lymphocytes % (auto) 28.6 %; Mean Corpuscular Hemoglobin 31.1 pg (25.0-34.0); Mean Corpuscular Volume 91.4 fL (80.0-100.0); Mean Platelet Volume 9.2 fL (9.4-12.4); Neutrophils # (auto) 4.02 K/uL (1.40-6.50); Neutrophils % (auto) 60.4 %; Platelet Count 332 K/uL (130-400); RDW Coefficient of Variation 13.5 % (11.5-14.5); RDW Standard Deviation 45.5 fL (36.4-46.3); White Blood Count 6.65 K/ul (4.8-10.8)
[2022-08-24 08:15] LABS: Albumin Globulin Ratio 1.3 (0.9-2); Albumin Level 3.5 gm/dl (3.4-5.0); BUN Creatinine Ratio 17.9 (10-20); Bilirubin,Total 0.4 mg/dl (0.2-1.0); Calcium 8.9 mg/dl (8.6-10.3); Chol HDL Ratio 3.3 (0-5); Creatinine Clr Calc Pharmacy 33.7 ml/min; Est GFR (African American) 47.8 ml/min; Est GFR (Non-African American) 41.3 ml/min; Globulin 2.8 gm/dl (2.5-4.0); Potassium 3.9 mmol/L (3.5-5.1); Total Protein 6.3 gm/dl (6.0-8.3)
[2022-08-24 08:28] LABS: Estimated Average Glucose 123 mg/dl; Hemoglobin A1C 5.9 % (4.5-5.6)
[2022-08-24 08:31] LABS: Prothrombin Time 10.6 Seconds (9.0-12.0)
[2022-08-24] MEDS ORDERED: POTASSIUM CHLORIDE CRTAB 20 MEQ TABCR PO SCH (09:00)
[2022-08-24] MEDS ORDERED: SIMVASTATIN 20 MG TAB PO SCH (09:00)
[2022-08-24] MEDS ORDERED: STROKE PATIENT DISCHARGE STA (12:13)
--- NOTE | 2022-08-24 12:13 | Discharge Summary ---
Date of Service August 24, 2022 Admission HPI Per Admitting Provider Vijay is an 87 year old female with a PMH significant for afib on Eliquis, HTN, dyslipidemia, pre-diabetes, duodenal ulcer, and HFpEF who presented to the [facility] ED on 08/23/22 due to left hand/arm paresthesias. In the ED vitals were stable. Labs including CBC, CMP, and high sen trop were unremarkable. Chest xray, CT of the head, and CTA of the had/neck were read as no acute findings. We were asked to admit for ongoing TIA workup. At the time of the exam the patient was sitting in bed in no acute distress. She states that she was in her normal state of health when she woke this am. Around 11 am she was standing at her kitchen sink, washing dishes when she developed sudden onset of numbness on the dorsal aspect of her left hand. The numbness then moved proximally up her arm and into the left side of her neck. She denies any other neurologic symptoms or weakness when this occurred. She also denies recent chest pain, heart palpitations, SOB. The symptoms last for approximately 5 minutes and have not returned since. She denies ever having symptoms like this before. She took her medications as prescribed this am. She denies any recent fever, chills, abd pain, nausea, vomiting, dysuria, hematuria, urinary frequency, diarrhea, melena, LE swelling, and recent trauma. We discussed code status, at this time she wishes to be a full code as she is in good health and very independent. She would want her son to make medical decisions for her if she could not make them herself. Please refer to Dr. Luna's attestation for any changes to the treatment plan Principal Diagnosis Transient left arm paresthesia, no CVA Discharge Exam General-alert and oriented x3, no fevers, no chills HEENT-head atraumatic and normocephalic, TMs intact bilaterally, extraocular muscles intact Neck-no lymphadenopathy or thyromegaly, trachea midline Chest-clear to auscultation percussion. No rales wheezing or rhonchi Cardiac-regular rate and rhythm, normal S1 and S2 Abdomen-normal bowel sounds, nontender, no hepatosplenomegaly Extremities-no cyanosis, clubbing, or edema Neuro-cranial nerves II through XII intact, motor and sensory function within normal limits, strength symmetrical , no focal deficits Psych-normal affect, normal mood Discharge Data Allergies Allergy/AdvReac Type Severity Reaction Status Date / Time No Known Drug Allergies Allergy Verified 07/03/22 16:01 Consultations 08/23/22 17:30 ED Decision to Admit Stat Ordered Studies 08/23/22 14:16 CT angio head w con Stat CT angio neck with con Stat CT head/brain wo con Stat 08/23/22 18:33 MRI Brain [MR brain wo con] Urgent Hospital Course (1) Stroke-like symptom: Acute CVA has been ruled out. Left arm paresthesia has resolved. This probably was a transient peripheral neuropathy which has resolved. No further treatment necessary. Brain MRI scan negative for CVA. Admission head CT scan unremarkable. Admission head and neck CTA unremarkable. (2) Afib: Paroxysmal. Currently in sinus rhythm. Continue Eliquis and metoprolol (3) Stage 3 chronic kidney disease: Stable. Monitor intake and output. Serial labs (4) Duodenal ulcer: Stable. Continue BID PPI (5) Dyslipidemia: Stable. Continue statin Plan Discharge home today, August 24 Total Time Total Time Spent Total Time Spent (In Minutes): 40 minutes Discharge Plan Discharge Items Patient Disposition: Home - Self-Care Reason For Visit: STROKE-LIKE SYMPTOMS Discharge Diagnosis: Left arm paresthesia, no acute CVA Condition on Discharge: Good Activity: Resume your previous activity Non-emergency contact: Primary Care Provider Call non-emergency contact if: your symptoms worsen Follow-up/Referrals: Pk Andrade DO [Primary Care Provider] - Diet: Regular and Heart Healthy Addtl Attending Provider Instructions: All medications remain the same. Follow-up with your primary care provider Pending Studies at Discharge: No Stand-Alone Forms: My [facility] [employer], Smoking Cessation Medications and DC Order Prescriptions: Continued Eliquis 2.5 mg tablet 2.5 mg PO BID Qty: 180 3RF simvastatin 20 mg tablet 20 mg PO DAILY Qty: 90 3RF Patient Comments: HS omeprazole 40 mg capsule,delayed release(DR/EC) 40 mg PO BID Qty: 180 3RF metoprolol tartrate 50 mg tablet 50 mg PO BID Qty: 180 1RF estradiol [Climara] 0.025 mg/24 hr patch weekly 1 patch transdermal WK Qty: 12 3RF Rx Instructions: CHANGES ON SUNDAYS, Discharge Orders: Discharge Order (Routine); Ordered 08/24/22 Ordered By: Manuel Hastings Admission Data Admit Date/Time: 08/23/22 18:13 Attending Provider: Manuel Hastings Admit Provider: Erza Luna Primary Care Provider: Pk Andrade Other Providers: Ezra Luna Coding Level of Care Code 16928 INP/OBS DISCH >30 MIN Diagnoses Stroke-like symptom R29.90 Afib I48.91 Stage 3 chronic kidney disease N18.30 Duodenal ulcer K26.9 Dyslipidemia E78.5
--- NOTE | 2022-08-24 18:54 | Electrocardiogram Report ---
Test Reason : Blood Pressure : / mmHG Vent. Rate : 084 BPM Atrial Rate : 084 BPM P-R Int : 200 ms QRS Dur : 066 ms QT Int : 378 ms P-R-T Axes : 075 -26 011 degrees QTc Int : 446 ms Normal sinus rhythm Minimal voltage criteria for LVH, may be normal variant Poor R wave progression, consider anterior MS vs. lead placement vs. LVH Borderline ECG When compared with ECG of 21-OCT-2021 08:07, Sinus rhythm has replaced Atrial fibrillation Vent. rate has decreased BY 57 BPM Minimal criteria for Anterior infarct are no longer Present T wave inversion less evident in Inferior leads Nonspecific T wave abnormality no longer evident in Lateral leads Confirmed by Slava Whitney ([id number]) on 08/24/2022 6:54:28 PM Referred By: REFERRED SELF Confirmed By:Frederick Whitney
--- NOTE | 2022-08-24 19:23 | XCELERA ---
[id number] \\[id number]
== END 2022-08-24 13:45 | disposition home or self-care (01) ==
LOC: 2N 13:33 → ED 13:33 → SUATTDRO 18:13 → 2N 22:42